=== PATIENT | male | born 1955 | race Caucasian/White ===

== ENCOUNTER 2020-06-15 16:53 | Inpatient (IN) | payer SELFPAY ==
--- OUTSIDE RECORDS SUMMARY | 2020-06-15 16:57 | XMS REPORT | Continuity of Care Document ---
:1955 Author Organization [facility] t Address [address] [place] [address] Care Team Providers Name Role Phone Unavailable Unavailable Unavailable Payers Payer Name Policy Type Policy Number Effective Date Expiration Date S ource Problems This patient has no known problems. Allergies, Adverse Reactions, Alerts Allergy Allergy Status Severity Reaction(s) Onset Inactive Treating Comm ents Source Name Type Date Date Clinician No Known DA Active U 2019-03 [facility] 0-10 [facility] 00:00: [facility] 00 are [place] Medications This patient has no known medications. Procedures This patient has no known procedures. Results Test Description Test Time Test Comments Results Result Comments Source CREATININE POC 2020-01-03 13:04:00 Test Item Value Reference Range Interpretation Comme nts CREATININE POC (test code = CREATP) 0.99 mg/dL 0.6-1.3 N COMPREHENSIVE METABOLIC [id number] 23:08:00 Test Item Value Reference Range Interpretation Comments SODIUM (test code = 138 mmol/L 136-145 N NA) POTASSIUM (test code 4.4 MMOL/L 3.6-5.2 N = K) CHLORIDE (test code 103 MMOL/L 98-110 N = CL) CARBON DIOXIDE (test 27 mEq/L 24-32 N code = CO2) GLUCOSE (test code = 152 mg/dL 70-110 H GLU) BLOOD UREA NITROGEN 19 mg/dL 7-18 H (test code = BUN) GLOMERULAR 57 >60 L The estimated FILTRATION RATE glomerular f iltration (test code = GFR) rate is co mputed usingpatient ra ce, age (>18), sex, and serum creatinine. If anyof the needed data elements are mi ssing the Laboratory cannot compute an adair mation of the glomerul ar filtration rate . CREATININE (test 1.34 mg/dL 0.60-1.30 H code = CREAT) TOTAL PROTEIN (test 6.8 g/dL 6.0-8.3 N code = PROT) ALBUMIN (test code = 4.1 g/dL 3.2-5.5 N ALB) CALCIUM (test code = 9.2 mg/dL 8.6-10.3 N CA) BILIRUBIN TOTAL 1.2 mg/dL 0.2-1.0 H [id number] enzoquinone (test code = BILT) imine (NA PQI), a metabolite ofacetaminophen (paracetamol), may generate errone ously lowresults in s amples for patients th at have taken toxic dos esof acetaminophen (paracetamol). SGOT/AST (test code 60 UNITS/L 10-42 H = AST) SGPT/ALT (test code 38 UNITS/L 10-40 N = ALT) ALKALINE PHOSPHATASE 68 UNITS/L 38-126 N (test code = ALKP) [id number] 23:08:00 Test Item Value Reference Range Interpretation Comments LIPASE (test code = LIP) 28 UNITS/L 22-151 N [id number] 23:08:00 Test Item Value Reference Range Interpretation Comments MAGNESIUM (test code = MAG) 2.0 mg/dL 1.7-2.8 N [id number] 23:08:00 Test Item Value Reference Range Interpretation Comments ALCOHOL (test code = < 5.0 mg/dl 0.0-80.0 N ALC) ~~~~~~~~~~~~~~~ ~~~~~~~ ~~~~~~~~~~~~~~~ ~~~~~~~ ~~~~~~ RESU LTS ARE TO BE USED FOR MEDICAL PURPOSES ONLY.F OR LEGAL PURPOSES THE SPECIMEN MUST B E COLLECTED BY A CHAINOF CUSTODY. LEGAL TESTING IS NOT PERFORME D BY THIS FACILITY. ~~~~~~~~~~~~~~~ ~~~~~~~ ~~~~~~~~~~~~~~~ ~~~~~~~ ~~~~~~ - XR CHEST 1 [id number] 23:01:00Patient Name: TIARA GLASGOW Unit No: [id number] EXAMS: CPT: [id number] XR CHEST 1 V [id number] PORTABLE CHEST, 01/01/2020. Comparison: None. CLINICAL: Chest pain. COMMENT: The heart, mediastinum, hilar regions and pulmonary vasculature appear within normal limits. The lungs are free of active disease. The bony thorax is intact. IMPRESSION: No evidence to suggest active cardiopulmonary disease. at 2301 Reported and signed by: Juan Hoang MD CC: Technologist: Crescencio Gonsalez Fluoro Time: DAP (Gy m2): Air Kerma (mGy): Trscr Dt/Tm: 01/01/2020 (2300) by:[email or web address] Orig Print D/T: S: 01/01/2020 (2303) BATCH NO: N/A Name: TIARA GLASGOW [facility] [place] Phys: GILMER Rosy David Jennings [address] [facility] : 1955 Age: 64 Sex: [place] Loc: T.ERS Exam Date: 01/01/2020 Status: REG ER PH: FAX: PAGE 1 Signed Report COMPREHENSIVE METABOLIC [id number] 22:58:00 Test Item Value Reference Range Interpretation Comments SODIUM (test code = NA) 138 mmol/L 136-145 N POTASSIUM (test code = K) 4.4 MMOL/L 3.6-5.2 N CHLORIDE (test code = CL) 103 MMOL/L 98-110 N CARBON DIOXIDE (test code = CO2) 27 mEq/L 24-32 N GLUCOSE (test code = GLU) 152 mg/dL 70-110 H BLOOD UREA NITROGEN (test code = mg/dL 7-18 BUN) GLOMERULAR FILTRATION RATE (test >60 code = GFR) CREATININE (test code = CREAT) mg/dL 0.60-1.30 TOTAL PROTEIN (test code = PROT) g/dL 6.0-8.3 ALBUMIN (test code = ALB) g/dL 3.2-5.5 CALCIUM (test code = CA) 9.2 mg/dL 8.6-10.3 N BILIRUBIN TOTAL (test code = BILT) mg/dL 0.2-1.0 SGOT/AST (test code = AST) UNITS/L 10-42 SGPT/ALT (test code = ALT) UNITS/L 10-40 ALKALINE PHOSPHATASE (test code = UNITS/L 38-126 ALKP) [id number] 22:58:00 Test Item Value Reference Range Interpretation Comments LIPASE (test code = LIP) UNITS/L 22-151 [id number] 22:58:00 Test Item Value Reference Range Interpretation Comments MAGNESIUM (test code = MAG) mg/dL 1.7-2.8 [id number] 22:58:00 Test Item Value Reference Range Interpretation Comments ALCOHOL (test code = ALC) mg/dl 0.0-80.0 - CT ABD PELVIS [id number] 22:58:00Patient Name: TIARA GLASGOW Unit No: [id number] EXAMS: CPT: [id number] CT ABD PELVIS W/CONT [id number] TECHNIQUE: CT scan of the abdomen and pelvis performed from the lung bases through the lesser trochanter following the administration of 100 mL Isovue 300 IV contrast. DLP: 530 mGy/cm. The study was performed with radiation dose optimization per ACR practice guidelines and pupil personnel worker's recommendations which includes: automated exposure control, adjustment of the mA and/or KV according to patient size, and/or use of iterative reconstruction technique. COMPARISON: None CLINICAL HISTORY: Abdominal pain FINDINGS: A 2.7 cm bleb is seen in the medial aspect of the left upper lobe. Elevation of theright hemidiaphragm is seen. The liver, spleen, pancreas, adrenal glands, and gallbladder appear within normal limits. Multiple scar are seen in both kidneys. The right kidney smaller than the left kidney. No kidney stone, mass, or demi hydronephrosis. Left renal pelviectasis noted. There is no free fluid or free air. No retroperitoneal mass or adenopathy identified. The aorta has a normal caliber. Large degree of fecal material seen in the colon. The small bowel appears diffusely distended measuring up to 3.4 cm in diameter containing air-fluid levels. A colostomy is seen in the left lower abdomen. The rectal stump appears thickened with mild surrounding stranding. There is mild diffuse distention of the large bowel. The urinary bladder appears within normal limits. No pelvic mass or adenopathy identified. Degenerative changes are seen in the lumbar spine. No acute or aggressive bony lesion identified. IMPRESSION: Multiple scar seen in both kidneys. The right kidney smaller than the left kidney. Left renal pelviectasis without demi hydronephrosis. Distention of the large and small bowel suggestive for diffuse ileus. A colostomy is seen in the left lower abdomen. The rectal stump appears thickened with surrounding stranding. Please correlate with patient's history of malignancy and treatment including radiation treatment. Name: TIARA GLASGOW Jos[place] Phys: David Hopkins [address] [place] [address] : 1955 Age: 64 Sex: M [place] Jos[place] Loc: T.ERS Exam Date: 01/01/2020 Status: REG ER PH: FAX: PAGE 1Signed Report (CONTINUED) Patient Name: TIARA GLASGOW Unit No:[id number] EXAMS: CPT: [id number] CTABD PELVIS W/CONT [id number] <Continued> ElectronicallySigned by Curry Jessica MD on 01/01/2020 at 2258 Reported and signed by: Curry Jessica MD CC: Technologist: Huong Galeas CTDI: 10 DLP: 530 Trscr Dt/Tm: 01/01/2020 (1649) by:CaryHNN Orig Print D/T: S: 01/01/2020 (9471) BATCH NO: N/A Name: TIARA GLASGOW Joselo Phys: David Hopkins [address] [place] [address] : 1955 Age: 64 Sex: [place] Loc: T.ERS Exam Date: 01/01/2020 Status:REG ER PH: FAX: PAGE 2 Signed ReportCOMPREHENSIVE METABOLIC [id number] 22:53:00 Test Item Value Reference Range Interpretation Comments SODIUM (test code = NA) mmol/L 136-145 POTASSIUM (test code = K) 4.4 MMOL/L 3.6-5.2 N CHLORIDE (test code = CL) MMOL/L 98-110 CARBON DIOXIDE (test code = CO2) mEq/L 24-32 GLUCOSE (test code = GLU) mg/dL 70-110 BLOOD UREA NITROGEN (test code = mg/dL 7-18 BUN) GLOMERULAR FILTRATION RATE (test >60 code = GFR) CREATININE (test code = CREAT) mg/dL 0.60-1.30 TOTAL PROTEIN (test code = PROT) g/dL 6.0-8.3 ALBUMIN (test code = ALB) g/dL 3.2-5.5 CALCIUM (test code = CA) mg/dL 8.6-10.3 BILIRUBIN TOTAL (test code = BILT) mg/dL 0.2-1.0 SGOT/AST (test code = AST) UNITS/L 10-42 SGPT/ALT (test code = ALT) UNITS/L 10-40 ALKALINE PHOSPHATASE (test code = UNITS/L 38-126 ALKP) [id number] 22:53:00 Test Item Value Reference Range Interpretation Comments LIPASE (test code = LIP) UNITS/L 22-151 [id number] 22:53:00 Test Item Value Reference Range Interpretation Comments MAGNESIUM (test code = MAG) mg/dL 1.7-2.8 [id number] 22:53:00 Test Item Value Reference Range Interpretation Comments ALCOHOL (test code = ALC) mg/dl 0.0-80.0 CBC W/AUTO [id number] 22:52:00 Test Item Value Reference Range Interpretation Comments WHITE BLOOD CELL (test code = 18.67 K/mm3 5.0-12.0 H WBC) RED BLOOD CELL (test code = RBC) 4.72 M/mm3 4.70-6.10 N HEMOGLOBIN (test code = HGB) 15.7 G/DL 14.0-18.0 N HEMATOCRIT (test code = HCT) 45.7 % 38.8-50.0 N MEAN CELL VOLUME (test code = 97 fL 80-94 H MCV) MEAN CELL HGB (test code = MCH) 33.3 PGM 27-31 H MEAN CELL HGB CONCENTRATION (test 34.4 G/DL 33-37 N code = MCHC) RED CELL DISTRIBUTION WIDTH (test 14.3 % 11.6-16.2 N code = RDW) PLATELET COUNT (test code = PLT) 253 K/mm3 130-400 N MEAN PLATELET VOLUME (test code = 9.9 fl 7.4-10.4 N MPV) NEUTROPHIL % (test code = NT%) 88.3 % 43-65 H IMMATURE GRANULOCYTE % (test code 0.9 % 0.0-2.0 N = IG%) LYMPHOCYTE % (test code = LY%) 2.5 % 20.5-45.5 L MONOCYTE % (test code = MO%) 7.6 % 5.5-11.7 N EOSINOPHIL % (test code = EO%) 0.1 % 0.9-2.9 L BASOPHIL % (test code = BA%) 0.6 % 0.2-1.0 N NUCLEATED RBC % (test code = 0.0 % 0-1.0 N NRBC%) NEUTROPHIL # (test code = NT#) 16.50 K/mm3 2.2-4.8 H LYMPHOCYTE # (test code = LY#) 0.47 K/mm3 1.3-2.9 L MONOCYTE # (test code = MO#) 1.42 K/mm3 0.3-0.8 H EOSINOPHIL # (test code = EO#) 0.01 K/MM3 0.0-0.2 N BASOPHIL # (test code = BA#) 0.11 K/mm3 0.0-0.1 H TROPONIN I [id number] 22:44:00 Test Item Value Reference Range Interpretation Comments TROPONIN I RAPID 0.00 ng/mL 0.00-0.08 N ISTAT (test code = TROPONIN I TROPIRAP) CRITERIA0.00-0. 08 ng/mL - Negative>0.08 n g/mL - Positive The us e of serial sampling and te sting protocol is are commended practice.An julee vated troponin level alone is often not suffi cient fordiagnosis of myocardial infarction. Zayra raygoza results obtaine d by different assay s may vary.Evaluation of the extent of myoca rdial damage based on increase of troponin would be valid only if similar methodology is used.
[2020-06-15 18:17] LABS: Absolute Lymphocytes (CBC) 0.5 K/uL (0.7-4.9); Basophils % 0.2 % (0-1.3); Lymphocytes % 3.6 % (15.3-44.8); RBC Red Blood Cell Count 5.32 M/uL (4.33-5.43)
[2020-06-15 18:35] LABS: Bilirubin Direct 0.3 mg/dL (0-0.2); Bilirubin Total 1.2 mg/dL (0.2-1.0); Potassium 4.2 mmol/L (3.5-5.1); Protein, Total 7.7 g/dL (6.4-8.2)
[2020-06-15] MEDS ORDERED: MORPHINE 4 MG/ML SYR ONE ×2 (18:35→20:56)
[2020-06-15] MEDS ORDERED: NA CHLORIDE 0.9% 1,000 ML ONE ×2 (18:35→20:05)
[2020-06-15] MEDS ORDERED: ONDANSETRON 4 MG/2 ML VIAL ONE ×2 (18:35→20:34)
[2020-06-15 18:52] LABS: Blood Morphology Comment NOT SEEN (NOT SEEN); Platelet Estimate ADEQ; White Blood Cell Scan OK (OK)
--- NOTE | 2020-06-15 19:10 | RAD REPORT ---
EXAM DESCRIPTION: CT - Abdomen Pelvis W Contrast - 06/15/2020 6:55 pm CLINICAL HISTORY: ABD PAIN COMPARISON: <Comparisons> TECHNIQUE: Biphasic, helical CT imaging of the abdomen and pelvis was performed following 100 ml non -ionic IV contrast. Oral contrast was given. All CT scans are performed using dose optimization technique as appropriate and may include automated exposure control or mA/KV adjustment according to patient size. FINDINGS: No suspicious findings in the lung bases. Right hemidiaphragm elevation is present. No car diomegaly or pericardial effusion. The liver, spleen, and pancreas show no suspicious findings. Gallbladder and biliary tree are also wi thout suspicious finding. Renal function is symmetric. Both kidneys show areas of cortical thinning that may be from prior infe ctious or ischemic insults. Left kidney is larger than the right. No pyelonephritis or acute renal pa renchymal process. No hydronephrosis or obstructing calculus. Mostly contracted urinary bladder shows no suspicious finding. No adrenal abnormalities. Air and fluid-filled stomach shows no wall thickening or mass. Duodenum and proximal jejunum show no suspicious findings. There is progressive dilatation of the small bowel loops in the distal abdomen u p to 3-3.5 cm in diameter. Abrupt transition point is not clearly defined but is probably in the mid to distal ileum. Terminal ileum is not dilated. There is moderate stool volume throughout the colon. Left lower quadrant colostomy site is present. No free air or pneumatosis. Surgical changes are present in the distal rectum. There is soft tissu e thickening in this region that is within normal limits for postsurgical and post therapy change. In the absence of a comparison, possibility of residual or recurrent mass cannot be excluded. No abscess identified. Disc and bony degenerative changes are present. No pathologic bone process. IMPRESSION: Small bowel obstruction pattern is present with a transition point probably in the mid t o distal ileum. No obstructing mass identified. Internal hernia or adhesion would be most likely. Moderate stool amount still present in the colon. No acute findings at the left lower quadrant colost marbella site. No abscess, free air or surgically emergent finding.
--- NOTE | 2020-06-15 19:46 | ER ---
Nurse's Notes [facility] Name: Rolando De León Age: 64 yrs Sex: Male : 1955 Arrival Date: 06/15/2020 Time: 16:56 Bed 20 Private MD: Diagnosis: Small Bowel Obstruction Presentation: 06/15 17:28 Chief complaint: Patient states: Abdominal pain and nausea since this morning. I might ca1 have a obstruction. I have a colostomy bag and today, I don't have the usual output in my bag. I am also hurting in my chest right now like am having a heart attack. Chest pain started at 1100 today. Coronavirus screen: Client denies travel out of the [place] in the last 14 days. nausea, Client presents with at least one sign or symptom that may indicate coronavirus-19. Standard/surgical mask placed on the client. Provider contacted for isolation considerations. Ebola Screen: Patient negative for fever greater than or equal to 101.5 degrees Fahrenheit, and additional compatible Ebola Virus Disease symptoms Patient denies exposure to infectious person. Patient denies travel to an Ebola-affected area in the 21 days before illness onset. No symptoms or risks identified at this time. Initial Sepsis Screen: Does the patient meet any 2 criteria? No. Patient's initial sepsis screen is negative. Does the patient have a suspected source of infection? No. Patient's initial sepsis screen is negative. Risk Assessment: Do you want to hurt yourself or someone else? Patient reports no desire to harm self or others. Onset of symptoms was June 15, 2020. 17:28 Method Of Arrival: Ambulatory ca1 17:28 Acuity: SOLANGE 2 ca1 Triage Assessment: 19:30 Respiratory: the patient has mild shortness of breath. rr5 Historical: - Allergies: 17:32 No Known Allergies; ca1 - PMHx: 17:32 Thyroid problem; ca1 - PSHx: 17:32 colostomy; eye surgery; Appendectomy; ca1 - Immunization history:: Flu vaccine is not up to date. - Social history:: Smoking status: Patient reports the use of cigarette tobacco products, smokes one-half pack cigarettes per day. Screenin:45 Abuse screen: Denies threats or abuse. Nutritional screening: No deficits noted. rb3 Tuberculosis screening: No symptoms or risk factors identified. Fall Risk None identified. Assessment: 17:45 General: Appears in no apparent distress. Behavior is calm, cooperative. General: rb3 Reports chills for Denies fever. Pain: Complains of pain in abdomen Pain began this morning. Neuro: Level of Consciousness is awake, alert, obeys commands, Oriented to person, place, time, situation. Cardiovascular: Patient's skin is warm and dry. Respiratory: Airway is patent Respiratory effort is even, unlabored, Respiratory pattern is regular, symmetrical. GI: Reports nausea, vomiting, since this morning Has a colostomy bag on the left due to colon cancer. Has had the colostomy about six years. GI: Last bowel movement was today, stool is soft. Pt reports that he had a bowel movement yesterday as well. : No signs and/or symptoms were reported regarding the genitourinary system. 18:25 Reassessment: Patient appears in no apparent distress at this time. No changes from rb3 previously documented assessment. 19:30 General: Appears in no apparent distress. uncomfortable, Behavior is calm, cooperative, rr5 appropriate for age. 19:30 Pain: Complains of pain in abdomen and left upper quadrant and right upper quadrant. rr5 Neuro: Level of Consciousness is awake, alert, obeys commands, Oriented to person, place, time. Cardiovascular: Capillary refill < 3 seconds Patient's skin is warm and dry. Rhythm is regular. Respiratory: Reports shortness of breath Airway is patent Respiratory effort is even, unlabored, Respiratory pattern is regular, symmetrical, GI: Abdomen is flat, Colostomy site is clean and dry. Ostomy appliance is intact. Reports upper abdominal pain, nausea, vomiting. : No signs and/or symptoms were reported regarding the genitourinary system. EENT: No signs and/or symptoms were reported regarding the EENT system. Derm: Skin is intact, is healthy with good turgor, Skin temperature is warm. Musculoskeletal: Capillary refill < 3 seconds. 20:30 Reassessment: Patient appears in no apparent distress at this time. Patient is alert, rr5 oriented x 3, equal unlabored respirations, skin warm/dry/pink. awaiting for results. 21:30 Reassessment: Patient appears in no apparent distress at this time. Patient and/or rr5 family updated on plan of care and expected duration. Pain level reassessed. Patient is alert, oriented x 3, equal unlabored respirations, skin warm/dry/pink. hospitalist at bedside. 22:30 Reassessment: Patient appears in no apparent distress at this time. Patient is alert, rr5 oriented x 3, equal unlabored respirations, skin warm/dry/pink. Patient states symptoms have improved. 23:30 Reassessment: Patient appears in no apparent distress at this time. Patient is alert, rr5 oriented x 3, equal unlabored respirations, skin warm/dry/pink. Patient states symptoms have improved. Vital Signs: 17:28 BP 151 / 62; Pulse 68; Resp 16 A; Temp 97.1(TE); Pulse Ox 100% on R/A; Weight 58.51 kg ca1 (R); Height 5 ft. 11 in. (180.34 cm) (R); Pain 10/10; 18:25 BP 150 / 76; Pulse 69; Resp 17; Pulse Ox 99% ; rb3 19:30 BP 156 / 80; Pulse 60; Resp 19; Temp 98; Pulse Ox 99% ; rr5 20:30 BP 162 / 79; Pulse 66; Resp 15; Pulse Ox 98% ; rr5 21:20 BP 131 / 89; Pulse 70; Resp 15; Pulse Ox 98% ; rr5 22:00 BP 143 / 95; Pulse 64; Resp 19; Temp 97.9; Pulse Ox 97% ; rr5 23:19 BP 139 / 54; Pulse 65; Resp 16; Temp 98; Pulse Ox 98% ; rr5 17:28 Body Mass Index 17.99 (58.51 kg, 180.34 cm) ca1 ED Course: 16:56 Patient arrived in ED. ds1 17:31 Triage completed. ca1 17:32 Arm band placed on right wrist. ca1 17:45 Patient has correct armband on for positive identification. Bed in low position. Call rb3 light in reach. Side rails up X 1. Pulse ox on. NIBP on. Warm blanket given. 17:46 Sarah Hernandez, RN is Primary Nurse. rb3 17:52 [facility]eda Hughes [facility]C [facility] kb 17:52 Sergio Huang MD is Attending Physician. kb 18:55 CT Abd/Pelvis - IV Contrast Only In Process Unspecified. EDMS 19:20 Inserted saline lock: 20 gauge in right antecubital area, using aseptic technique. rr5 ,using aseptic technique. inserted by AM shift. 19:45 Sandoval Leon is Hospitalizing Provider. kb 20:35 NGT: inserted 16 Fr. via right nare. verified placement of air over stomach, verified rr5 return of gastric contents, to intermittent suction. Returned gastric contents. Patient tolerated well. 23:40 No provider procedures requiring assistance completed. Patient admitted, IV remains in rr5 place. intact, No redness/swelling at site. Administered Medications: 18:23 Drug: NS 0.9% 1000 ml Route: IV; Rate: 1000 ml; Site: right antecubital; rb3 19:40 Follow up: Response: No adverse reaction; IV Status: Completed infusion; IV Intake: rr5 1000ml 18:23 Drug: Zofran (Ondansetron) 4 mg Route: IVP; Site: right antecubital; rb3 19:20 Follow up: Response: No adverse reaction rr5 18:23 Drug: morphine 4 mg Route: IVP; Site: right antecubital; rb3 19:20 Follow up: Response: No adverse reaction; Pain is decreased; RASS: Alert and Calm (0) rr5 20:04 Drug: Mefoxin (cefOXitin) 2 grams Route: IVPB; Infused Over: 30 mins; Site: right bb antecubital; 20:53 Follow up: Response: No adverse reaction; IV Status: Completed infusion; IV Intake: rr5 100ml 20:04 Drug: Flagyl 500 mg Volume: 100 ml; Route: IVPB; Rate: 200 ml/hr; Infused Over: 30 bb mins; Site: right antecubital; 20:35 Follow up: Response: No adverse reaction; IV Status: Completed infusion; IV Intake: rr5 100ml 20:04 Drug: NS 0.9% 1000 ml Route: IV; Rate: 125 ml/hr; Site: right antecubital; bb 23:30 Follow up: Response: No adverse reaction; IV Status: Infusion continued upon admission; rr5 IV Intake: 375ml 20:30 Drug: Zofran (Ondansetron) 4 mg Route: IVP; Site: right antecubital; rr5 21:30 Follow up: Response: No adverse reaction rr5 20:46 Drug: morphine 4 mg {Note: rass 0.} Route: IVP; Site: right antecubital; rr5 21:40 Follow up: Response: No adverse reaction; Pain is decreased; RASS: Alert and Calm (0) rr5 Intake: 19:40 IV: 1000ml; Total: 1000ml. rr5 20:35 IV: 100ml; Total: 1100ml. rr5 20:53 IV: 100ml; Total: 1200ml. rr5 23:30 IV: 375ml; Total: 1575ml. rr5 Output: 23:30 Urine: 250ml (Voided); Gastric: 300ml (NGT); Total: 550ml. rr5 Outcome: 19:46 Decision to Hospitalize by Provider. kb 23:35 Admitted to Tele accompanied by tech, via stretcher, room 428, with chart, Report rr5 called to julio 23:35 Condition: stable 23:35 Instructed on the need for admit. 23:40 Patient left the ED. rr5 Signatures: Dispatcher [employer] EDRasheeda Hawthorne, WU SALAZAR-Jyotsna Vázquez ds1 Nano Colin, RN RN bb [place], RN RN rr5 Kayla Lind RN RN ca1 Sarah Hernandez, RN RN rb3 Corrections: (The following items were deleted from the chart) 17:33 17:28 BP 151 / 62; Pulse 68bpm; Resp 16bpm; Assisted; Pulse Ox 100% RA; Temp 97.1F ca1 Temporal; 58.51 kg Reported; Height 5 ft. 11 in. Reported; BMI: 17.9; Pain 9/10; ca1 17:33 17:28 Acuity: SOLANGE 3 ca1 ca1
--- NOTE | 2020-06-15 19:47 | EDPHYS ---
Physician Documentation [facility] Name: Rolando De León Age: 64 yrs Sex: Male : 1955 Arrival Date: 06/15/2020 Time: 16:56 Bed 20 Private MD: ED Physician Sergio Huang HPI: 06/15 18:22 This 64 yrs old Male presents to ER via Ambulatory with complaints of kb Shortness Of Breath, Chills, Pain All Over. 18:22 Severity of symptoms: At their worst the symptoms were moderate in the emergency kb department the symptoms are unchanged. The patient has not experienced similar symptoms in the past. The patient has not recently seen a physician. 18:22 The patient presents with abdominal pain. Onset: The symptoms/episode began/occurred kb this morning. The symptoms do not radiate. Associated signs and symptoms: Pertinent positives: nausea and vomiting. The symptoms are described as constant. Modifying factors: The symptoms are alleviated by nothing, the symptoms are aggravated by nothing. Severity of pain: At its worst the pain was moderate in the emergency department the pain is unchanged. Pt reports abd pain that started after eating cereal this morning. States it feels like a bowel obstruction. Historical: - Allergies: 17:32 No Known Allergies; ca1 - PMHx: 17:32 Thyroid problem; ca1 - PSHx: 17:32 colostomy; eye surgery; Appendectomy; ca1 - Immunization history:: Flu vaccine is not up to date. - Social history:: Smoking status: Patient reports the use of cigarette tobacco products, smokes one-half pack cigarettes per day. ROS: 18:05 Constitutional: Negative for fever, chills, and weight loss, Cardiovascular: Negative kb for chest pain, palpitations, and edema, Respiratory: Negative for shortness of breath, cough, wheezing, and pleuritic chest pain, Back: Negative for injury and pain, MS/Extremity: Negative for injury and deformity, Skin: Negative for injury, rash, and discoloration, Neuro: Negative for headache, weakness, numbness, tingling, and seizure. 18:05 Abdomen/GI: Positive for abdominal pain, nausea and vomiting. Exam: 18:21 Constitutional: This is a well developed, well nourished patient who is awake, alert, kb and in no acute distress. Head/Face: Normocephalic, atraumatic. Cardiovascular: Regular rate and rhythm with a normal S1 and S2. No gallops, murmurs, or rubs. No pulse deficits. Respiratory: Respirations even and unlabored. No increased work of breathing, no retractions or nasal flaring. Skin: Warm, dry with normal turgor. Normal color. MS/ Extremity: Pulses equal, no cyanosis. Neurovascular intact. Full, normal range of motion. Neuro: Awake and alert, GCS 15, oriented to person, place, time, and situation. Moves all extremities. Normal gait. 18:21 Abdomen/GI: Inspection: colonostomy LUQ, Bowel sounds: diminished, Palpation: soft, in all quadrants, mild abdominal tenderness, in the right upper quadrant and left upper quadrant. 18:21 ECG was reviewed by the Attending Physician. kb Vital Signs: 17:28 BP 151 / 62; Pulse 68; Resp 16 A; Temp 97.1(TE); Pulse Ox 100% on R/A; Weight 58.51 kg ca1 (R); Height 5 ft. 11 in. (180.34 cm) (R); Pain 10/10; 18:25 BP 150 / 76; Pulse 69; Resp 17; Pulse Ox 99% ; rb3 19:30 BP 156 / 80; Pulse 60; Resp 19; Temp 98; Pulse Ox 99% ; rr5 20:30 BP 162 / 79; Pulse 66; Resp 15; Pulse Ox 98% ; rr5 21:20 BP 131 / 89; Pulse 70; Resp 15; Pulse Ox 98% ; rr5 22:00 BP 143 / 95; Pulse 64; Resp 19; Temp 97.9; Pulse Ox 97% ; rr5 23:19 BP 139 / 54; Pulse 65; Resp 16; Temp 98; Pulse Ox 98% ; rr5 17:28 Body Mass Index 17.99 (58.51 kg, 180.34 cm) ca1 MDM: 17:52 Patient medically screened. kb 18:19 Data reviewed: vital signs, nurses notes. Data interpreted: Pulse oximetry: on room air kb is 100 %. Interpretation: normal. 19:43 Counseling: I had a detailed discussion with the patient and/or guardian regarding: the kb historical points, exam findings, and any diagnostic results supporting the discharge/admit diagnosis, lab results, radiology results, the need for further work-up and treatment in the hospital. Physician consultation: See Zuleta MD was contacted at 19:44, regarding consult, patient's condition, and will see patient in inpatient room, tomorrow. 19:44 Physician consultation: Bairon REYNOLDS was contacted at 19:44, regarding admission, to the medical/surgical unit. patient's condition, and will see patient in ED. 06/15 17:57 Order name: Basic Metabolic Panel; Complete Time: 18:40 kb 06/15 17:57 Order name: CBC with Diff; Complete Time: 18:59 kb 06/15 17:57 Order name: Hepatic Function; Complete Time: 18:40 kb 06/15 17:57 Order name: Lipase; Complete Time: 18:40 kb 06/15 18:52 Order name: CBC Smear Scan; Complete Time: 18:59 EDMS 06/15 19:43 Order name: COVID-19 : Document "Date of Symptom Onset" if Symptomatic. kb 06/15 17:57 Order name: CT Abd/Pelvis - IV Contrast Only; Complete Time: 19:20 kb 06/15 19:46 Order name: Carcinoembryonic Antigen EDGA 06/15 20:56 Order name: Abdomen 1 View XRAY rr5 06/15 22:10 Order name: SARS-COV-2 RT PCR EDGA 06/15 17:33 Order name: EKG; Complete Time: 17:33 ca1 06/15 17:33 Order name: EKG - Nurse/Tech; Complete Time: 17:37 ca1 06/15 17:57 Order name: IV Saline Lock; Complete Time: 18:24 kb 06/15 17:57 Order name: Labs collected and sent; Complete Time: 18:24 kb 06/15 19:43 Order name: NG Tube; Complete Time: 20:54 kb 06/15 20:18 Order name: CONS Physician Consult EDMS EC:21 Rate is 72 beats/min. Rhythm is regular. QRS [place] is Normal. [place] interval is normal at kb 100 msec. QRS interval is normal at 126 msec. QT interval is normal at 466 msec. Administered Medications: 18:23 Drug: NS 0.9% 1000 ml Route: IV; Rate: 1000 ml; Site: right antecubital; rb3 19:40 Follow up: Response: No adverse reaction; IV Status: Completed infusion; IV Intake: rr5 1000ml 18:23 Drug: Zofran (Ondansetron) 4 mg Route: IVP; Site: right antecubital; rb3 19:20 Follow up: Response: No adverse reaction rr5 18:23 Drug: morphine 4 mg Route: IVP; Site: right antecubital; rb3 19:20 Follow up: Response: No adverse reaction; Pain is decreased; RASS: Alert and Calm (0) rr5 20:04 Drug: Mefoxin (cefOXitin) 2 grams Route: IVPB; Infused Over: 30 mins; Site: right bb antecubital; 20:53 Follow up: Response: No adverse reaction; IV Status: Completed infusion; IV Intake: rr5 100ml 20:04 Drug: Flagyl 500 mg Volume: 100 ml; Route: IVPB; Rate: 200 ml/hr; Infused Over: 30 bb mins; Site: right antecubital; 20:35 Follow up: Response: No adverse reaction; IV Status: Completed infusion; IV Intake: rr5 100ml 20:04 Drug: NS 0.9% 1000 ml Route: IV; Rate: 125 ml/hr; Site: right antecubital; bb 23:30 Follow up: Response: No adverse reaction; IV Status: Infusion continued upon admission; rr5 IV Intake: 375ml 20:30 Drug: Zofran (Ondansetron) 4 mg Route: IVP; Site: right antecubital; rr5 21:30 Follow up: Response: No adverse reaction rr5 20:46 Drug: morphine 4 mg {Note: rass 0.} Route: IVP; Site: right antecubital; rr5 21:40 Follow up: Response: No adverse reaction; Pain is decreased; RASS: Alert and Calm (0) rr5 Disposition: 06/16 07:28 Co-signature as Attending Physician, Sergio Huang MD I agree with the assessment and kdr plan of care. Disposition: 06/15/20 19:46 Hospitalization ordered by Sandoval Leon for Inpatient Admission. Preliminary diagnosis is Small Bowel Obstruction. - Bed requested for Telemetry/MedSurg (Inpatient). - Status is Inpatient Admission. rr5 - Condition is Stable. - Problem is new. - Symptoms are unchanged. Signatures: Dispatcher [employer] EDGA Rasheeda Hughes, MARTIN-C MARTIN-Sergio Hall MD MD kdr Ballard, Brenda, RN RN bb [place], RN RN rr5 Kayla Lind RN RN ca1 Sarah Hernandez, RN RN rb3 Corrections: (The following items were deleted from the chart) 06/15 19:44 19:43 Physician consultation: See Zuleta MD was contacted at 19:44, regarding kb admission, to the medical/surgical unit. patient's condition, and will see patient in inpatient room, tomorrow, kb 22:55 19:46 Hospitalization Ordered by Sandoval Leon for Inpatient Admission. Preliminary ca1 diagnosis is Small Bowel Obstruction. Bed requested for Telemetry/MedSurg (Inpatient). Status is Inpatient Admission. Condition is Stable. Problem is new. Symptoms are unchanged. kb 23:40 22:55 06/15/2020 19:46 Hospitalization Ordered by Sandoval Leon for Inpatient rr5 Admission. Preliminary diagnosis is Small Bowel Obstruction. Bed requested for Telemetry/MedSurg (Inpatient). Status is Inpatient Admission. Condition is Stable. Problem is new. Symptoms are unchanged. ca1
[2020-06-15] MEDS ORDERED: CEFOXITIN SODIUM 1 GM/VIAL ONE (20:04)
[2020-06-15] MEDS ORDERED: METRONIDAZOLE 500mg IVPB 500 MG/100 ML BAG IV ONE (20:05)
[2020-06-15] MEDS ORDERED: NA CHLORIDE 0.9% 100 ML ONE (20:05)
--- NOTE | 2020-06-15 22:59 | P.HP ---
Certification for Inpatient Patient admitted to: Inpatient With expected LOS: >2 Midnights Patient will require the following post-hospital care: None Practitioner: I am a practitioner with admitting privileges, knowledge of patient current condition, hospital course, and medical plan of care. Services: Services provided to patient in accordance with Admission requirements found in Title 42 Section 412.3 of the Code of Federal Regulations <DomingoBairon Andre - Last Filed: 06/15/20 22:54> Patient History Date of Service: 06/15/20 Primary Care Provider: Dr. Spivey Reason for admission: SBO History of Present Illness: Mr. De León is a 64 yo M with a history of thyroid disease and colon cancer now with colostomy bag here today for 9/10 cramping umbilical abdominal pain beginning this morning. He tried to eat breakfast and the pain worsened. In the past the pain has improved when he massages the area with his fingers but not today. He had an SBO in the January 2020 relieved with NG tube suction. He reports night sweats, chills, nausea, and vomiting. WBC 13.6. Tbili 1.2. Dbili 0.3. CEA 0.9. CT scan show small bowel obstruction pattern present with a transition point in mid to distal ileum, no obstructing mass identified, internal hernia or adhesion most likely and no acute findings at the LLQ colostomy site. No abscess, free air or surgically emergent finding. Home medications list reviewed: No - Past Medical/Surgical History Diabetic: No -: thyroid disease -: colon cancer -: colectomy - Family History Father -: Heart disease Sister -: Heart disease Brother -: Heart disease, Hypertension - Social History Smoking Status: Current every day smoker Counseled patient to stop smoking for: less than 10 minutes Smoking therapy provided: Yes Alcohol use: No CD- Drugs: No Caffeine use: Yes Place of Residence: Home <Bairon Lane - Last Filed: 06/15/20 22:54> Date of Service: 06/16/20 <latoya canseco - Last Filed: 06/16/20 14:47> Review of Systems General: Fever, Chills, Sweats, As per HPI Eyes: Unremarkable ENT: Unremarkable Respiratory: Unremarkable Cardiovascular: Unremarkable Gastrointestinal: Nausea, Vomiting, Abdominal Pain, As per HPI Genitourinary: Unremarkable Musculoskeletal: Unremarkable Integumentary: Unremarkable Neurological: Unremarkable Lymphatics: Unremarkable <Bairon Lane - Last Filed: 06/15/20 22:54> Physical Examination - Vital Signs Temperature: 97.1 F Blood Pressure: 151/62 Pulse: 68 Respirations: 16 Pulse Ox (%): 100 - Physical Exam General: Alert, Oriented x3, Cooperative HEENT: Atraumatic, Normocephalic, PERRLA, Mucous membr. moist/pink, EOMI, Sclerae nonicteric Neck: Supple, 2+ carotid pulse no bruit, JVD not distended, No Thyromegaly, No LAD Respiratory: Clear to auscultation bilaterally Cardiovascular: No edema, Normal pulses, Regular rate/rhythm, No gallops, No rubs, No murmurs Capillary refill: <2 Seconds Gastrointestinal: Soft and benign, Non-distended, No ascites, No masses, No rebound, No guarding, Tenderness Musculoskeletal: No clubbing, No swelling, No contractures, No erythema, No tenderness, No warmth Integumentary: No rashes, No breakdown, No significant lesion, No tenderness/swelling, No erythema, No warmth, No cyanosis Neurological: Normal speech, Normal strength at 5/5 x4 extr, Normal tone, Sensation intact, Cranial nerves 3-12 intact, Normal affect Lymphatics: No axilla or inguinal lymphadenopathy - Studies Laboratory Data (last 24 hrs) 06/15/20 18:10: WBC 13.60 H, Hgb 16.2, Hct 49.0, Plt Count 212 06/15/20 18:10: Sodium 141, Potassium 4.2, BUN 17, Creatinine 1.03, Glucose 163 H, Total Bilirubin 1.2 H, AST 15, ALT 25, Alkaline Phosphatase 81, Lipase 52 L <Bairon Lane - Last Filed: 06/15/20 22:54> - Studies Laboratory Data (last 24 hrs) 06/15/20 18:10: WBC 13.60 H, Hgb 16.2, Hct 49.0, Plt Count 212 06/15/20 18:10: Sodium 141, Potassium 4.2, BUN 17, Creatinine 1.03, Glucose 163 H, Total Bilirubin 1.2 H, AST 15, ALT 25, Alkaline Phosphatase 81, Lipase 52 L <latoya canseco - Last Filed: 06/16/20 14:47> Assessment and Plan - Problems (Diagnosis) (1) Small bowel obstruction Current Visit: Yes Status: Acute Plan: Merlyn consulted. Mefoxin and flagyl for abx prophylaxis continue IV fluids NG tube flat upright AXR in the AM morphine for pain, zofran for nausea (2) Thyroid disease Current Visit: Yes Status: Chronic Plan: patient takes methimazole, but hasn't taken for months due to cost. TSH/T4 pending. (3) History of colon cancer Current Visit: Yes Status: Chronic Plan: CEA 0.9. Stable, continue to monitor. Discharge Plan: Home Plan to discharge in: 48 Hours - Advance Directives Does patient have a Living Will: No Does patient have a Durable POA for Healthcare: No - Code Status/Comfort Care Code Status Assessed: Yes (full code) Critical Care: No Time Spent Managing Pts Care (In Minutes): [address] <[address] - Last Filed: 06/15/20 22:54> Physician Review: Patient Assessed, Agree with Above Assessment and Plan Physician Review Additional Text: Small-bowel obstruction. Hyperthyroid state. Leukocytosis Plan: Medical management for now. Empiric IV antibiotics NG-tube to suction General surgery consult. Resume thyroid medications. <latoya canseco - Last Filed: 06/16/20 14:47>
[2020-06-16 00:27] VITALS: BMI 17.3
[2020-06-16] MEDS ORDERED: NA CHLORIDE 0.9% 1,000 ML IV SCH (00:45)
[2020-06-16] MEDS ORDERED: ONDANSETRON 4 MG/2 ML VIAL IV PRN (00:45)
[2020-06-16] MEDS ORDERED: CEFOXITIN/SWI 1gm 1 GM/10 ML SYR IV ONE ×2 (01:15→01:30)
[2020-06-16 01:45] LABS: Thyroid Stimulating Hormone < 0.005 uIU/mL (0.360-3.740)
[2020-06-16] MEDS ORDERED: CEFEPIME/SWI 1gm 0 ML ONE (01:51)
[2020-06-16] MEDS ORDERED: CEFOXITIN SODIUM 1 GM/VIAL ONE (02:15)
[2020-06-16] MEDS ORDERED: CEFOXITIN/SWI 1gm 1 GM/10 ML SYR ONE (02:15)
[2020-06-16] MEDS: MORPHINE 4 MG/ML SYR IV PRN (03:08)
[2020-06-16] MEDS ORDERED: CEFOXITIN 2 GM in NA CHLORIDE 0.9% 100 ML IVPB SCH (04:00)
[2020-06-16] MEDS: METRONIDAZOLE 500mg IVPB 500 MG/100 ML BAG IV SCH ×3 (04:14→17:00)
[2020-06-16 04:17] LABS: Absolute Lymphocytes (CBC) 0.2 K/uL (0.7-4.9); Basophils % 0.3 % (0-1.3); Hematocrit 48.2 % (39.6-49.0); Lymphocytes % 0.8 % (15.3-44.8); MPV 8.3 fL (7.6-11.3); RBC Red Blood Cell Count 5.24 M/uL (4.33-5.43)
[2020-06-16 04:54] LABS: Albumin 3.4 g/dL (3.4-5.0); Bilirubin Total 0.9 mg/dL (0.2-1.0); Magnesium 1.8 mg/dL (1.8-2.4); Protein, Total 6.8 g/dL (6.4-8.2)
[2020-06-16 04:57] LABS: Potassium 5.8 mmol/L (3.5-5.1)
[2020-06-16 07:19] LABS: Urine Appearance CLEAR; Urine Bilirubin NEGATIVE (NEG); Urine Blood NEGATIVE (Negative); Urine Color YELLOW; Urine Glucose NEGATIVE (Negative); Urine Protein NEGATIVE (NEG); Urine Specific Gravity >=1.030 (1.005-1.030); Urine Urobilinogen 0.2 mg/dL (0.2-1.0); Urine pH 5.5 (5.0-7.0)
[2020-06-16 07:19] LABS: Albumin 3.1 g/dL (3.4-5.0); Bilirubin Total 0.8 mg/dL (0.2-1.0); Potassium 4.6 mmol/L (3.5-5.1); Protein, Total 6.3 g/dL (6.4-8.2)
[2020-06-16 07:28] LABS: Urine Microscopic Reflex NO UMIC
[2020-06-16] MEDS: NA CHLORIDE 0.9% 1,000 ML IV SCH ×2 (07:44→15:44)
--- NOTE | 2020-06-16 08:25 | RAD REPORT ---
EXAM DESCRIPTION: RAD - Abdomen W Erect - 06/16/2020 6:18 am CLINICAL HISTORY: SBO Pain COMPARISON: Abdomen Pelvis W Contrast dated 06/15/2020 FINDINGS: Numerous stacked distended loops of small bowel are seen showing mild worsening since prio r CT. Enteric tube tip is in the stomach. There is no evidence of pneumoperitoneum. The right hemidia phragm is elevated. IMPRESSION: Mild worsening in the small bowel obstruction since the comparative study.
[2020-06-16 08:42] LABS: Absolute Lymphocytes (CBC) 0.3 K/uL (0.7-4.9); Basophils % 0.2 % (0-1.3); Hematocrit 45.1 % (39.6-49.0); Lymphocytes % 1.7 % (15.3-44.8); MPV 8.3 fL (7.6-11.3); RBC Red Blood Cell Count 4.94 M/uL (4.33-5.43)
[2020-06-16] MEDS: CEFOXITIN/SWI 2gm 2 GM/20 ML SYR IV SCH ×2 (09:00→17:00)
[2020-06-16] MEDS ORDERED: MAGNESIUM SULFATE 1 gm IVPB 1 GM/100 ML BAG IV ONE (09:00)
[2020-06-16 09:41] LABS: Blood Morphology Comment NOT SEEN (NOT SEEN); Platelet Estimate ADEQ
--- NOTE | 2020-06-16 09:47 | CON ---
Date of Consultation: 06/15/2020 Reason For Consultation: Small-bowel obstruction. History Of Present Illness: The patient is a 64-year-old gentleman, comes in with a history of thyro id disease and rectal cancer with crampy abdominal pain. It started yesterday morning after breakfas t and worsen. He has had nausea and vomiting. After the NG tube was placed, feel little bit better. Last night he passed gas, colostomy bag yesterday, does have small amount of stool in it currently. No sore throat, runny nose, cough, headaches, or dizziness. No chest pain. No fever or chills. P lease note, the patient had about 6 episodes of recurrent small bowel obstruction in the last 6 years since his colostomy. Colostomy cannot be reversed due to his rectal cancer and I understand he prob ably had an APR done. Review of Systems: Otherwise unremarkable. Past Medical History: Thyroid disease, colon cancer. Past Surgical History: Probably an abdominoperineal resection with an ileostomy, which was reversed. Allergies: NO ALLERGIES. Social History: The patient does smoke and has been counseled. Denies alcohol use. Family History: Significant for heart disease and hypertension. Physical Examination: Vital Signs: His vital signs currently are stable. He is afebrile. General: He is awake, alert, and oriented x3. Head and Neck: Cranial nerves 2 through 12 are grossly within normal limits. No neck masses. No JV D. Throat clear. Neck is supple. Chest: Clear. Heart: S1 and S2. Abdomen: Soft. Hypoactive bowel sounds. Nondistended. There is a very minimal tenderness. No yusuf ound, rigidity, or guarding. No abdominal wall hernia that I can appreciate. Colostomy has a small amount of solid stool present, but I do not see any air. Laboratory Data: Shows white count on admission 13.6, this morning however is 21,000 still with a le ft shift. His chemistry was repeated this morning because of potassium is high and there was concern for hemolysis and his potassium now is 4.6. His BUN and creatinine are slightly elevated earlier th is morning, but has improved. His CEA is 0.9. CT of the abdomen and pelvis reviewed. He has small bowel obstruction. No discrete point of transition, but appears to be in the right lower quadrant, i n the mid ileum region. There is no evidence of recurrence hernia, there is no free air, there is no abscess, and there is no discrete hernia that appreciated. Most likely source of obstruction is int ernal hernia or adhesions, but there is no abscess, free air, or surgically emergent finding. Assessment: Small bowel obstruction. Recommendations: Continue n.p.o., NG tube, IV fluids, IV antibiotics, serial abdominal exams. We wi ll check an abdominal x-ray today and make further recommendation. At this time, there is no need fo r acute surgical intervention, but should the patient's clinical course worsens or not improve, he ma y need an intervention. Plan of care discussed with the patient in detail. JOELLEN/LUÍS Voice ID: [id number] Report ID: [id number]
[2020-06-16] MEDS ORDERED: PNEUMOCOCCAL VACCINE 0.5 ML IMVAC ONE (13:00)
[2020-06-16] MEDS ORDERED: INFLUENZA VACCINE (for 3y+) 0.5 ML DOSE IMVAC ONE (13:00)
--- NOTE | 2020-06-16 14:53 | P.PN ---
Subjective Date of Service: 06/16/20 Primary Care Provider: Dr. Spivey Chief Complaint: SBO Patient denies any abdominal pain. He reports passing small amounts of gas and has BM in his colostomy bag. Abdominal x-rays today suggest worsening small-bowel obstruction. Physical Examination - Vital Signs Temperature: 98.3 F Blood Pressure: 136/63 Pulse: 72 Respirations: 19 Pulse Ox (%): 95 - Physical Exam General: Alert, In no apparent distress, Oriented x3 HEENT: Other (NG-tube to suction) Neck: Supple, JVD not distended Respiratory: Clear to auscultation bilaterally, Normal air movement Cardiovascular: No edema, Regular rate/rhythm, Normal S1 S2 Gastrointestinal: Soft and benign, Non-distended, No tenderness Musculoskeletal: No swelling, No tenderness Integumentary: No rashes Neurological: Normal strength at 5/5 x4 extr, Cranial nerves 3-12 intact - Studies Laboratory Data (last 24 hrs) 06/15/20 18:10: WBC 13.60 H, Hgb 16.2, Hct 49.0, Plt Count 212 06/15/20 18:10: Sodium 141, Potassium 4.2, BUN 17, Creatinine 1.03, Glucose 163 H, Total Bilirubin 1.2 H, AST 15, ALT 25, Alkaline Phosphatase 81, Lipase 52 L Assessment And Plan - Current Problems (Diagnosis) (1) Hyperthyroidism Current Visit: Yes Status: Acute (2) Small bowel obstruction Current Visit: Yes Status: Acute (3) History of colon cancer Current Visit: Yes Status: Chronic (4) Thyroid disease Current Visit: Yes Status: Chronic (5) Leukocytosis Current Visit: Yes Status: Acute - Plan Case discussed with Dr. Zuleta. Continue medical management with NG tube to suction, IV antibiotics, IV hydration. Repeat abdominal x-ray in a.m followed by a small-bowel series if SBO persist. Hyperkalemia likely secondary to blood sample hemolysis. Hyperkalemia resolved. Resume methimazole for hyperthyroid state. Monitor CBC to follow leukocytosis. Monitor renal function.
--- NOTE | 2020-06-16 15:03 | EKG ---
Test Date: 2020-06-15 Test Time: 17:36:26 Cnc Grinder: MASTER MEASUREMENT RESULTS: Intervals: Rate: 72 MD: 100 QRSD: 126 QT: 466 QTc: 510 [place]: P: 87 MD: 100 QRS: 94 T: 76 INTERPRETIVE STATEMENTS: Sinus rhythm with short MD with occasional premature ventricular complexes Right bundle branch block Abnormal ECG No previous ECG available for comparison Electronically Signed On 06-16-20 15:01:51 CDT by Enrique Aguilar
[2020-06-16] MEDS: NICOTINE 14 MG/PAT TD SCH (17:00)
[2020-06-16] MEDS: ENSURE ENLIVE 237 ML CAN PO SCH (20:23)
[2020-06-16] MEDS: CEPACOL LOZENGES PO PRN (20:42)
--- NOTE | 2020-06-16 21:09 | RAD REPORT ---
EXAM DESCRIPTION: Chest Single View RadLex: XR CHEST 1 VIEW CLINICAL HISTORY: NGT verification. COMPARISON: None. TECHNIQUE: Single view AP chest radiograph(s). FINDINGS: Enteric tube terminates in the stomach. Moderate perihilar interstitial thickening. No inf iltrate. No pleural effusion. No pneumothorax. Nonenlarged cardiomediastinal silhouette. No significa nt osseous abnormality. IMPRESSION: 1. Enteric tube terminates in the stomach. 2. Moderate perihilar interstitial thickening. No infiltrate Electronically signed by: Kim Sarmiento MD 06/15/2020 9:51 PM CDT Due to temporary technical issues with the PACS/Fluency reporting system, reports are being signed by the in house radiologists without review as a courtesy to insure prompt reporting. The interpreting radiologist is fully responsible for the content of the report.
[2020-06-17] MEDS: METRONIDAZOLE 500mg IVPB 500 MG/100 ML BAG IV SCH ×3 (00:52→17:28)
[2020-06-17] MEDS: NA CHLORIDE 0.9% 1,000 ML IV SCH ×4 (00:52→21:39)
[2020-06-17] MEDS: CEPACOL LOZENGES PO PRN ×4 (00:58→22:08)
[2020-06-17] MEDS: CEFOXITIN/SWI 2gm 2 GM/20 ML SYR IV SCH ×3 (00:59→17:29)
[2020-06-17 06:52] LABS: Absolute Lymphocytes (CBC) 0.9 K/uL (0.7-4.9); Basophils % 0.5 % (0-1.3); Hematocrit 41.9 % (39.6-49.0); Lymphocytes % 7.8 % (15.3-44.8); MPV 8.5 fL (7.6-11.3); RBC Red Blood Cell Count 4.53 M/uL (4.33-5.43)
[2020-06-17 06:59] LABS: Magnesium 2.1 mg/dL (1.8-2.4); Phosphorus 1.9 mg/dL (2.5-4.9)
[2020-06-17] MEDS: NICOTINE 14 MG/PAT TD SCH (07:54)
[2020-06-17] MEDS: ENSURE ENLIVE 237 ML CAN PO SCH ×2 (07:54→20:09)
[2020-06-17] MEDS: MORPHINE 4 MG/ML SYR IV PRN (09:03)
--- NOTE | 2020-06-17 09:49 | RAD REPORT ---
EXAM DESCRIPTION: RAD - Abdomen W Erect - 06/17/2020 6:30 am CLINICAL HISTORY: Abdominal pain FINDINGS: The small bowel caliber has diminished. Air is present within the colon. The small bowel o bstruction has shown improvement. No free air seen beneath the diaphragm Nasogastric tube has its tip in the mid esophagus. Exam was discussed with Dr. Zuleta
--- NOTE | 2020-06-17 12:19 | P.PN ---
Subjective Date of Service: 06/17/20 Primary Care Provider: Dr. Spivey Chief Complaint: SBO Nurse report patient had a large bowel movement yesterday. Patient denies any symptoms this morning. Abdominal x-rays today show significant improvement in small bowel is dilatation. Physical Examination - Vital Signs Temperature: 97.9 F Blood Pressure: 133/65 Pulse: 68 Respirations: 14 Pulse Ox (%): 94 - Physical Exam General: Alert, In no apparent distress HEENT: Mucous membr. moist/pink, Other (NG-tube) Neck: JVD not distended Respiratory: Clear to auscultation bilaterally, Normal air movement Cardiovascular: No edema, Regular rate/rhythm, Normal S1 S2 Gastrointestinal: Normal bowel sounds, Soft and benign, Non-distended, No tenderness, Other (Colostomy bag) Musculoskeletal: No swelling, No erythema Integumentary: No rashes Neurological: Normal strength at 5/5 x4 extr Assessment And Plan - Current Problems (Diagnosis) (1) Hyperthyroidism Current Visit: Yes Status: Acute (2) Small bowel obstruction Current Visit: Yes Status: Acute (3) History of colon cancer Current Visit: Yes Status: Chronic (4) Thyroid disease Current Visit: Yes Status: Chronic (5) Leukocytosis Current Visit: Yes Status: Acute - Plan Remove NG tube and start clear liquid diet today per Dr. Zuleta. Continue IV antibiotics, IV hydration. May need small-bowel series tomorrow. He may need referral to GI for colonoscopy as an outpatient . Hyperkalemia likely secondary to blood sample hemolysis. Hyperkalemia resolved. Continue methimazole for hyperthyroid state. Leukocytosis almost resolved. Likely stress related. Renal function is stable. Physician Review: Patient Assessed, Agree with Above Assessment and Plan
--- NOTE | 2020-06-17 12:23 | PN ---
Date of Progress Note: 06/17/2020 Subjective: The patient with no complaints. He is having air in stool through his colostomy bag. A bdominal x-ray shows improvement of the small bowel obstruction. White count is almost normalized to 11,000. Objective: Vital signs: Stable, afebrile. Abdomen: Benign. Assessment: Small-bowel obstruction, improving. Recommendation: Discontinue NG tube. Begin sips of clear liquids. Continue IV fluids and IV antibi otics. Check electrolytes and correct them accordingly. Long-term plan would be to get a colonoscop y as an outpatient followed by possible exploratory laparotomy for recurrent small bowel obstruction. Plan of care discussed in detail with the patient and Dr. Leon. /MODL Voice ID: [id number] Report ID: [id number]
[2020-06-17 19:59] VITALS: O2SAT 97
[2020-06-18] MEDS: METRONIDAZOLE 500mg IVPB 500 MG/100 ML BAG IV SCH ×2 (00:38→09:09)
[2020-06-18] MEDS: CEFOXITIN/SWI 2gm 2 GM/20 ML SYR IV SCH ×2 (00:38→09:39)
[2020-06-18 04:59] LABS: Basophils % 0.5 % (0-1.3); Hematocrit 40.9 % (39.6-49.0); Lymphocytes % 12.6 % (15.3-44.8); MPV 8.5 fL (7.6-11.3); RBC Red Blood Cell Count 4.47 M/uL (4.33-5.43)
[2020-06-18 05:15] LABS: Potassium 3.8 mmol/L (3.5-5.1)
[2020-06-18] MEDS: NA CHLORIDE 0.9% 1,000 ML IV SCH (06:52)
[2020-06-18] MEDS: NICOTINE 14 MG/PAT TD SCH (09:00)
[2020-06-18] MEDS ORDERED: POTASSIUM 25 MEQ EFFERV TAB PO ONE (09:00)
[2020-06-18] MEDS: ENSURE ENLIVE 237 ML CAN PO SCH (09:37)
[2020-06-18 11:32] VITALS: BP 145/70; TEMP 97.8
--- NOTE | 2020-06-18 11:55 | PN ---
Date of Progress Note: 06/18/2020 Subjective: The patient is awake, alert, tolerating a full liquid diet. Having bowel movements in h is colostomy and air. No abdominal pain. Objective: Vitals: Stable. Afebrile. Abdomen: Soft, nondistended, nontender. Positive bowel sounds. Laboratory Data: White count is 8.1. Chemistry reviewed and within normal limits. Assessment: Small bowel obstruction, resolved. Recommendations: Advance GI soft if tolerated. Can be discharged home. The patient was advised to eat small frequent meals, foods that are easy to digest and get a colonoscopy as an outpatient and if his small bowel obstruction episodes continue, he would need an exploratory laparotomy, diagnostic l aparoscopy, likely for lysis of adhesion. Plan of care discussed in detail with the patient. JOELLEN/LUÍS Voice ID: [id number] Report ID: [id number]
--- NOTE | 2020-06-18 11:59 | P.DS ---
Admission Date: 06/15/20 Discharge Date: 06/18/20 Primary Care Provider: Dr. Spivey Disposition: ROUTINE DISCHARGE Discharge Condition: FAIR Reason for Admission: SBO - Problems (1) Small bowel obstruction Current Visit: Yes Status: Acute (2) Hyperthyroidism Current Visit: Yes Status: Acute (3) History of colon cancer Current Visit: Yes Status: Chronic (4) Thyroid disease Current Visit: Yes Status: Chronic (5) Leukocytosis Current Visit: Yes Status: Acute Brief History of Present Illness: 64-year-old gentleman with a history of colon cancer, hypothyroidism, history of bowel resection with colonoscopy presented to the emergency department with a complaint of abdominal pain worse with meals. Patient had a small bowel obstruction January last year which was managed conservatively and did not require surgery. CT abdomen and pelvis done in the emergency department showed small bowel dilatation and air-fluid levels indicating small-bowel obstruction with transition point in the mid to distal ileum. General surgeon Dr. Zuleta was contacted, NG tube was inserted in the ED and patient admitted for further management. Hospital Course: Patient admitted to the medical floor and managed conservatively with IV hydrat ion, IV antibiotics and NG-tube to suction. He was seen in consultation by general surgeon-Dr. Zuleta who recommended medical management at this time. Patient recurrent bowel obstruction is suspected to be related to adhesions. He does have a history of colon cancer. CT abdomen and pelvis done in the ED did not show any obstruction mass. Patient subsequently had multiple bowel movement, small-bowel obstruction resolved. Patient tolerated diet advancement from liquid to soft diet. Patient would like to undergo surgery to remove any adhesion that courses in to develop recurrent bowel obstruction. Dr. Zuleta recommended to him colonoscopy to evaluate for colon cancer recurrence before consideration for abdominal surgery. Patient voiced understanding and will follow up with his GI for arrangement for colonoscopy. Patient has clinically improved and deemed stable for discharge. Vital Signs/Physical Exam: Temp Pulse Resp BP Pulse Ox 97.8 F 57 18 145/70 H 95 06/18/20 11:32 06/18/20 11:32 06/18/20 11:32 06/18/20 11:32 06/18/20 11:32 General: Alert, In no apparent distress, Oriented x3 HEENT: Mucous membr. moist/pink Neck: Supple Respiratory: Clear to auscultation bilaterally, Normal air movement Cardiovascular: No edema, Regular rate/rhythm, Normal S1 S2 Gastrointestinal: Normal bowel sounds, Soft and benign, Non-distended, No tenderness Musculoskeletal: No swelling, No tenderness Integumentary: No rashes Neurological: Normal strength at 5/5 x4 extr Laboratory Data at Discharge: WBC 8.10 K/uL (4.3-10.9) D 06/18/20 04:12 Hgb 13.7 g/dL (13.6-17.9) 06/18/20 04:12 Hct 40.9 % (39.6-49.0) 06/18/20 04:12 Plt Count 170 K/uL (152-406) 06/18/20 04:12 Sodium 144 mmol/L (136-145) 06/18/20 04:12 Potassium 3.8 mmol/L (3.5-5.1) 06/18/20 04:12 BUN 11 mg/dL (7-18) 06/18/20 04:12 Creatinine 0.91 mg/dL (0.55-1.3) 06/18/20 04:12 Glucose 93 mg/dL (74-106) 06/18/20 04:12 Phosphorus 1.9 mg/dL (2.5-4.9) L 06/17/20 05:37 Magnesium 2.1 mg/dL (1.8-2.4) 06/17/20 05:37 Total Bilirubin 0.8 mg/dL (0.2-1.0) 06/16/20 06:45 AST 12 U/L (15-37) L 06/16/20 06:45 ALT 21 U/L (12-78) 06/16/20 06:45 Alkaline Phosphatase 65 U/L (45-117) 06/16/20 06:45 Lipase 52 U/L (73-393) L 06/15/20 18:10 Home Medications: Ensure Enlive 237 ml PO BID #60 can 06/18/20 methIMAzole [Tapazole*] 20 mg PO BID #60 tab 06/18/20 New Medications: Ensure Enlive 237 ml PO BID #60 can methIMAzole [Tapazole*] 20 mg PO BID #60 tab Diet: ADA Activity: Ad myke Followup: NONE,NONE [Primary Care Provider] - Time spent managing pt's care (in minutes): 38
== END 2020-06-18 14:25 | disposition home or self-care (01) | DRG 390 ==
LOC: ER 16:53 → ERHOLD 20:56 → 4TH 23:21 → 2ND 06-18 10:44
PROVIDERS: ADMIT Internal Medicine; ATTEND Internal Medicine
DX: K56.50 Intestinal adhesions [bands], unspecified as to partial versus complete obstruction (principal); D72.829 Elevated white blood cell count, unspecified; E07.9 Disorder of thyroid, unspecified; E87.5 Hyperkalemia; E03.9 Hypothyroidism, unspecified; F17.210 Nicotine dependence, cigarettes, uncomplicated; Z90.49 Acquired absence of other specified parts of digestive tract; Z85.038 Personal history of other malignant neoplasm of large intestine; Z79.899 Other long term (current) drug therapy; Z93.3 Colostomy status; Z20.822 Contact with and (suspected) exposure to COVID-19
CPT/HCPCS: 36415; 71045; 74019; 74177; 80048; 80053; 80076; 81003; 82378; 83690; 83735; 84100; 84439; 84443; 85025; 93005; 96361; 96365; 96368; 96375; 99285; J0692; J0694; J2405; J3475; J7030; Q9967; U0003

== ENCOUNTER 2020-07-15 20:55 | Emergency (ER) | payer SELFPAY ==
--- OUTSIDE RECORDS SUMMARY | 2020-07-15 20:59 | XMS REPORT | Continuity of Care Document ---
:1955 Author Organization [facility] t Address [address] [place] [address] Care Team Providers Name Role Phone Alycia ROMERO, Jonathan. Primary Care Physician Payers Payer Name Policy Type Policy Number Effective Date Expiration Date S ource Problems Condition Condition Condition Status Onset Resolution Last Treating Co mments Source Name Details Category Date Date Treatment Clinician Date Atrial Atrial Disease Active [place] fibrillati fibrillati 1-14 Me thodi on with on with 00:00: st RVR RVR 00 Allergies, Adverse Reactions, Alerts Allergy Allergy Status Severity Reaction(s) Onset Inactive Treating Comm ents Source Name Type Date Date Clinician No Known DA Active U 2019-03 [facility] Allergie 0-10 [place] s 00:00: [facility] 00 are [place] Social History Social Habit Start Date Stop Date Quantity Comments Source History of tobacco Current every Narinder ston [facility] use day smoker Cigarettes smoked 2017-04-06 2017-04-06 [place] [facility] current (pack per 00:00:00 00:00:00 day) - Reported Tobacco use and 2017-04-06 2017-04-06 Current user [place] [facility] exposure 00:00:00 00:00:00 Alcohol intake 2017-04-06 2017-04-06 Current drinker [place] [facility] 00:00:00 00:00:00 of alcohol (finding) Sex [birth year] [place] M ethodist 00:00:00 00:00:00 Smoking Status Start Date Stop Date Source Current every day smoker 2017-04-06 00:00:00 Narinder PúbliKoemeli [facility] Medications Ordered Filled Start Stop Current Ordering Indication Dosage Frequency Signature Comments Components Source Medication Medication Date Date Medication? Clinician (SIG) Name Name methIMAzole 2018-0 Yes 5mg [id number] Take 5 mg Carreon (TAPAZOLE) 1-17 [id number] by mouth 3 Methodi 5 MG tablet 16:18: 3D (three) st 52 times a day. Procedures This patient has no known procedures. Plan of Care Planned Activity Planned Date Details Comments Source Future Scheduled 2020-10-22 INFLUENZA VACCINE [place] [facility] 00:00:00 [code = INFLUENZA VACCINE] Future Scheduled 2006 COLONOSCOPY SCREENING [place] [facility] Test 00:00:00 [code = COLONOSCOPY SCREENING] Future Scheduled 2006 SHINGLES VACCINES [place] [facility] 00:00:00 (#1) [code = SHINGLES VACCINES (#1)] Future Scheduled 1974 Hepatitis C screening [place] [facility] Test 00:00:00 (procedure) [code = [id number]] Future Scheduled 1972 COVID-19 VACCINE (1) [facility] ston [facility] Test 00:00:00 [code = COVID-19 VACCINE (1)] Results Test Description Test Time Test Comments Results Result Comments Source CREATININE POC 2020-01-03 13:04:00 Test Item Value Reference Range Interpretation Comme nts CREATININE POC (test code = CREATP) 0.99 mg/dL 0.6-1.3 N COMPREHENSIVE METABOLIC [id number] 23:08:00 Test Item Value Reference Range Interpretation [...] CA) BILIRUBIN TOTAL 1.2 mg/dL 0.2-1.0 H O-tkwwya-n-b enzoquinone (test code = BILT) imine (NA PQI), a metabolite ofacetaminophen (paracetamol), may generate errone ously lowresults in s amples for patients th at have taken toxic dos esof acetaminophen (paracetamol). SGOT/AST (test code 60 UNITS/L 10-42 H = AST) SGPT/ALT (test code 38 UNITS/L 10-40 N = ALT) ALKALINE PHOSPHATASE 68 UNITS/L 38-126 N (test code = ALKP) [id number] 23:08:00 Test Item Value Reference Range Interpretation Comments LIPASE (test code = LIP) 28 UNITS/L 22-151 N [id number] 23:08:00 Test Item Value Reference Range Interpretation Comments MAGNESIUM (test code = MAG) 2.0 mg/dL 1.7-2.8 N [id number] 23:08:00 Test Item Value Reference Range Interpretation [...] ~~~~~~~~~~~~~~~ ~~~~~~~ ~~~~~~ - XR CHEST 1 [id number] 23:01:00Patient Name: TIARA GLASGOW Unit No: [id number] EXAMS: CPT: [id number] XR CHEST 1 V 24699 PORTABLE CHEST, 01/01/2020. Comparison: None. CLINICAL: Chest pain. COMMENT: The heart, mediastinum, hilar regions and pulmonary vasculature appear within normal limits. The lungs are free of active disease. The bony thorax is intact. IMPRESSION: No evidence to suggest active cardiopulmonary disease. at 2301 Reported and signed by: Juan Hoang MD CC: Technologist: Crescencio Monteiro Time: DAP (Gy m2): Air Kerma (mGy): Trscr Dt/Tm: 01/01/2020 (2300) by:[email or web address] Orig Print D/T: S: 01/01/2020 (2303) BATCH NO: N/A Name: TIARA GLASGOW [facility] [place] [facility] [address] [place] [address] : 1955 Age: 64 Sex: M [place], [place] Loc: T.ERS Exam Date: 01/01/2020 Status: REG ER PH: FAX: PAGE 1 Signed Report COMPREHENSIVE METABOLIC [id number] 22:58:00 Test Item Value Reference Range Interpretation [...] PHOSPHATASE (test code = UNITS/L 38-126 ALKP) [id number] 22:58:00 Test Item Value Reference Range Interpretation Comments LIPASE (test code = LIP) UNITS/L 22-151 [id number] 22:58:00 Test Item Value Reference Range Interpretation Comments MAGNESIUM (test code = MAG) mg/dL 1.7-2.8 [id number] 22:58:00 Test Item Value Reference Range Interpretation Comments ALCOHOL (test code = ALC) mg/dl 0.0-80.0 - CT ABD PELVIS [id number] 22:58:00Patient Name: TIARA GLASGOW Unit No: [id number] EXAMS: CPT: [id number] CT ABD PELVIS W/CONT 37883 TECHNIQUE: CT scan of the abdomen and pelvis performed from the lung bases through the lesser trochanter following the administration of 100 mL Isovue 300 IV contrast. DLP: 530 mGy/cm. The study was performed with radiation dose optimization per ACR practice guidelines and liquid loader's recommendations which includes: automated exposure control, adjustment [...] Name: TIARA GLASGOW [place] Phys: David Hopkins [address] [place] [address] : 1955 Age: 64 Sex: M [place] Loc: T.ERS Exam Date: 01/01/2020 Status: REG ER PH: FAX: PAGE 1Signed Report (CONTINUED) Patient Name: TIARA GLASGOW Unit No:[id number] EXAMS: CPT: [id number] CTABD PELVIS W/CONT 76780 <Continued> ElectronicallySigned by Curry Jessica MD on 01/01/2020 at 2258 Reported and signed by: Curry Jessica MD CC: Technologist: Huong Galeas CTDI: 10 DLP: 530 Trscr Dt/Tm: 01/01/2020 (2257) by:Caryl Orig Print D/T: S: 01/01/2020 (9444) BATCH NO: N/A Name: TIARA GLASGOW Phys: David Hopkins [address] [place] [address] : 1955 Age: 64 [facility] [id number] Loc: T.ERS Exam Date: 01/01/2020 Status:REG ER PH: FAX: PAGE 2 Signed ReportCOMPREHENSIVE METABOLIC [id number] 22:53:00 Test Item Value Reference Range Interpretation [...] PHOSPHATASE (test code = UNITS/L 38-126 ALKP) [id number] 22:53:00 Test Item Value Reference Range Interpretation Comments LIPASE (test code = LIP) UNITS/L 22-151 [id number] 22:53:00 Test Item Value Reference Range Interpretation Comments MAGNESIUM (test code = MAG) mg/dL 1.7-2.8 [id number] 22:53:00 Test Item Value Reference Range Interpretation Comments ALCOHOL (test code = ALC) mg/dl 0.0-80.0 CBC W/AUTO [id number] 22:52:00 Test Item Value Reference Range Interpretation [...] BA#) 0.11 K/mm3 0.0-0.1 H TROPONIN I [id number] 22:44:00 Test Item Value Reference Range Interpretation [...]
[2020-07-15] MEDS ORDERED: ACETAMINOPHEN 325 MG TABLET ONE (23:02)
[2020-07-16] MEDS ORDERED: TETANUS & DIPHTHERIA TOX,ADULT 0.5 ML VIAL ONE (02:50)
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
[2020-07-16 05:01] VITALS: BP 141/82; TEMP 98.4; O2SAT 100
--- NOTE | 2020-07-17 10:03 | RAD REPORT ---
EXAM DESCRIPTION: Ribs Right - 07/16/2020 2:58 am CLINICAL HISTORY: The patient is 64 years old and is Male; trauma TECHNIQUE: Four views of the right ribs. COMPARISON: No relevant prior studies available. FINDINGS: Lungs: Unremarkable as visualized. No consolidation. Pleural space: Unremarkable. No pneumothorax. Bones/joints: No acute rib fracture visualized. IMPRESSION: No acute rib fracture visualized. Electronically signed by: Nubia Jason MD 07/16/2020 4:11 AM CDT Due to temporary technical issues with the PACS/Fluency reporting system, reports are being signed by the in house radiologist without review as a courtesy to ensure prompt reporting. The interpreting r adiologist is fully responsible for the content of the report.
--- NOTE | 2020-07-17 10:05 | RAD REPORT ---
EXAM DESCRIPTION: Kimberly Blanc And Lat (2 Views)07/16/2020 2:58 am CLINICAL HISTORY: The patient is 64 years old and is Male; RIB PAIN - RIGHT TECHNIQUE: Two views of the chest. COMPARISON: No relevant prior studies available. FINDINGS: Lungs: Unremarkable. No consolidation. Pleural space: Unremarkable. No pneumothorax. Heart: Unremarkable. No cardiomegaly. Mediastinum: Unremarkable. Bones/joints: No acute fracture visualized. No acute rib fracture. Old left rib fractures. Multilevel vertebral osteophytes. Upper abdomen: No free air in the visualized upper abdomen. Mildly elevated right hemidiaphragm. IMPRESSION: No acute cardiopulmonary process identified. Electronically signed by: Nubia Jason MD 07/16/2020 4:12 AM CDT Due to temporary technical issues with the PACS/Fluency reporting system, reports are being signed by the in house radiologist without review as a courtesy to ensure prompt reporting. The interpreting r adiologist is fully responsible for the content of the report.
--- NOTE | 2020-07-17 10:07 | RAD REPORT ---
EXAM DESCRIPTION: CT - Head Brain Wo Cont - 07/16/2020 6:10 am CLINICAL HISTORY: The patient is 64 years old and is Male; TRAUMA TECHNIQUE: Axial computed tomography images of the head/brain without intravenous contrast. Sagitt al and coronal reformatted images were created and reviewed. This CT exam was performed using one o r more of the following dose reduction techniques: automated exposure control, adjustment of the mA and/or kV according to patient size, and/or use of iterative reconstruction technique. COMPARISON: No relevant prior studies available. FINDINGS: BRAIN: Unremarkable. The tavera-white matter differentiation is preserved . No hemorrhag e. No significant white matter disease. No edema. No extra-axial fluid collections. VENTRICLES: Unremarkable. No ventriculomegaly. BONES/JOINTS: No acute fracture. SOFT TISSUES: Unremarkable. SINUSES: Unremarkable as visualized. No acute sinusitis. MASTOID AIR CELLS: Unremarkable as visualized. No mastoid effusion. ORBITS: Unremarkable as visualized. IMPRESSION: No acute intracranial findings. Electronically signed by: Nabila Bill MD 07/16/2020 3:08 AM CDT Due to temporary technical issues with the PACS/Fluency reporting system, reports are being signed by the in house radiologist without review as a courtesy to ensure prompt reporting. The interpreting r adiologist is fully responsible for the content of the report.
== END 2020-07-16 04:48 | disposition home or self-care (01) ==
LOC: ER 20:55
DX: S00.83XA Contusion of other part of head, initial encounter (principal); S20.211A Contusion of right front wall of thorax, initial encounter; Y04.2XXA Assault by strike against or bumped into by another person, initial encounter; Y93.89 Activity, other specified; Y92.89 Other specified places as the place of occurrence of the external cause; Z23 Encounter for immunization; F17.210 Nicotine dependence, cigarettes, uncomplicated
CPT/HCPCS: 70450; 71046; 90471; 90714; 99284

== ENCOUNTER 2020-08-19 22:24 | Inpatient (IN) | payer SELFPAY ==
--- OUTSIDE RECORDS SUMMARY | 2020-08-19 22:27 | XMS REPORT | Continuity of Care Document ---
:1955 Author Organization [facility] t Address [address] [place] [address] Care Team Providers Name Role Phone Alycia ROMERO, Jonathan. Primary Care Physician Payers Payer Name Policy Type Policy Number Effective Date Expiration Date S ource Problems Condition Condition Condition Status Onset Resolution Last Treating Co mments Source Name Details Category Date Date Treatment Clinician Date Atrial Atrial Disease Active [place] fibrillati fibrillati 1-14 Me thodi on with on with 00:00: st RVR RVR 00 Allergies, Adverse Reactions, Alerts Allergy Allergy Status Severity Reaction(s) Onset Inactive Treating Comm ents Source Name Type Date Date Clinician No Known DA Active U 2019-03 [facility] Allergie 0-10 [place] s 00:00: [facility] 00 are [place] Social History Social Habit Start Date Stop Date Quantity Comments Source History of tobacco Current every Narinder ston [employer] use day smoker Cigarettes smoked 2017-04-06 2017-04-06 [place] [employer] current (pack per 00:00:00 00:00:00 day) - Reported Tobacco use and 2017-04-06 2017-04-06 Current user [place] [employer] exposure 00:00:00 00:00:00 Alcohol intake 2017-04-06 2017-04-06 Current drinker [place] [employer] 00:00:00 00:00:00 of alcohol (finding) Sex [birth year] [place] M ethodist 00:00:00 00:00:00 Smoking Status Start Date Stop Date Source Current every day smoker 2017-04-06 00:00:00 [facility] PostedInem[facility] [employer] Medications Ordered Filled Start Stop Current Ordering Indication Dosage Frequency Signature Comments Components Source Medication Medication Date Date Medication? Clinician (SIG) Name Name Mirian 2018- Yes 5mg [id number] Take 5 mg Carreon (TAPAZOLE) 1-17 [id number] by mouth 3 Methodi 5 MG tablet 16:18: 3D (three) st 52 times a day. Procedures This patient has no known procedures. Plan of Care Planned Activity Planned Date Details Comments Source Future Scheduled 2020-10-22 INFLUENZA VACCINE [place] [facility] [place] 00:00:00 [code = INFLUENZA VACCINE] Future Scheduled 2006 COLONOSCOPY SCREENING [place] [employer] Test 00:00:00 [code = COLONOSCOPY SCREENING] Future Scheduled 2006 SHINGLES VACCINES [place] [employer] 00:00:00 (#1) [code = SHINGLES VACCINES (#1)] Future Scheduled 1974 Hepatitis C screening [place] [employer] Test 00:00:00 (procedure) [code = 021115528] Future Scheduled 1968 COVID-19 VACCINE (1) [place] st[place] [employer] Test 00:00:00 [code = COVID-19 VACCINE (1)] Results Test Description Test Time Test Comments Results Result Comments Source CREATININE POC 2020-01-03 13:04:00 Test Item Value Reference Range Interpretation Comme nts CREATININE POC (test code = CREATP) 0.99 mg/dL 0.6-1.3 N COMPREHENSIVE METABOLIC [id number] 23:08:00 Test Item Value Reference Range Interpretation [...] CA) BILIRUBIN TOTAL 1.2 mg/dL 0.2-1.0 H M-qscntl-t-b enzoquinone (test code = BILT) imine (NA PQI), a metabolite ofacetaminophen (paracetamol), may generate errone ously lowresults in s amples for patients th at have taken toxic dos esof acetaminophen (paracetamol). SGOT/AST (test code 60 UNITS/L 10-42 H = AST) SGPT/ALT (test code 38 UNITS/L 10-40 N = ALT) ALKALINE PHOSPHATASE 68 UNITS/L 38-126 N (test code = ALKP) [id number] 23:08:00 Test Item Value Reference Range Interpretation Comments LIPASE (test code = LIP) 28 UNITS/L 22-151 N [id number] 23:08:00 Test Item Value Reference Range Interpretation Comments MAGNESIUM (test code = MAG) 2.0 mg/dL 1.7-2.8 N [id number] 23:08:00 Test Item Value Reference Range Interpretation [...] ~~~~~~~~~~~~~~~ ~~~~~~~ ~~~~~~ - XR CHEST 1 [id number] 23:01:00Patient Name: TIARA GLASGOW Unit No: [id number] EXAMS: CPT: [id number] XR CHEST 1 V 76500 PORTABLE CHEST, 01/01/2020. Comparison: None. CLINICAL: Chest [...] (2303) BATCH NO: N/A Name: TIARA GLASGOW [facility] [place] Phys: David Hopkins [facility] [address] [place] [address] : 1955 Age: 64 Sex: M [place], [place] Loc: T.ERS Exam Date: 01/01/2020 Status: REG ER PH: FAX: PAGE 1 Signed Report COMPREHENSIVE METABOLIC [id number] 22:58:00 Test Item Value Reference Range Interpretation [...] PHOSPHATASE (test code = UNITS/L 38-126 ALKP) [id number] 22:58:00 Test Item Value Reference Range Interpretation Comments LIPASE (test code = LIP) UNITS/L 22-151 [id number] 22:58:00 Test Item Value Reference Range Interpretation Comments MAGNESIUM (test code = MAG) mg/dL 1.7-2.8 [id number] 22:58:00 Test Item Value Reference Range Interpretation Comments ALCOHOL (test code = ALC) mg/dl 0.0-80.0 - CT ABD PELVIS [id number] 22:58:00Patient Name: TIARA GLASGOW Unit No: [id number] EXAMS: CPT: [id number] CT ABD PELVIS W/CONT 73401 TECHNIQUE: CT scan of the abdomen and pelvis performed from the lung bases through the lesser trochanter following the administration of 100 mL Isovue 300 IV contrast. DLP: 530 mGy/cm. The study was performed with radiation dose optimization per ACR practice guidelines and wire strander's recommendations which includes: automated exposure control, adjustment [...] treatment including radiation treatment. Name: TIARA GLASGOW Phys: David Hopkins [address] [place] [address] : 1955 Age: 64 Sex: [place] Loc: T.ERS Exam Date: 01/01/2020 Status: REG ER PH: FAX: PAGE 1Signed Report (CONTINUED) Patient Name: TIARA GLASGOW Unit No:[id number] EXAMS: CPT: [id number] CTABD PELVIS W/CONT 07478 <Continued> ElectronicallySigned by Curry Jessica MD on 01/01/2020 at 2258 Reported and signed by: Curry Jessica MD CC: Technologist: Huong Galeas CTDI: 10 DLP: 530 Trscr Dt/Tm: 01/01/2020 (2257) by:Caryl Orig Print D/T: S: 01/01/2020 (6415) BATCH NO: N/A Name: TIARA GLASGOW Phys: David Hopkins [address] [place] [address] : 1955 Age: 64 Sex: [place] Loc: T.ERS Exam Date: 01/01/2020 Status:REG ER PH: FAX: PAGE 2 Signed ReportCOMPREHENSIVE METABOLIC [id number] 22:53:00 Test Item Value Reference Range Interpretation [...] PHOSPHATASE (test code = UNITS/L 38-126 ALKP) [id number] 22:53:00 Test Item Value Reference Range Interpretation Comments LIPASE (test code = LIP) UNITS/L 22-151 [id number] 22:53:00 Test Item Value Reference Range Interpretation Comments MAGNESIUM (test code = MAG) mg/dL 1.7-2.8 [id number] 22:53:00 Test Item Value Reference Range Interpretation Comments ALCOHOL (test code = ALC) mg/dl 0.0-80.0 CBC W/AUTO [id number] 22:52:00 Test Item Value Reference Range Interpretation [...] BA#) 0.11 K/mm3 0.0-0.1 H TROPONIN I [id number] 22:44:00 Test Item Value Reference Range Interpretation Comments TROPONIN I RAPID 0.00 ng/mL 0.00-0.08 N ISTAT (test code = TROPONIN I TROPIRAP) CRITERIA0.00-0. 08 ng/mL - Negative>0.08 n g/mL - Positive The us e of serial sampling and te sting protocol is are commended practice.An juele vated troponin level alone is often not suffi cient fordiagnosis of myocardial infarction. Zayra raygoza results obtaine d by different assay s may vary.Evaluation of the extent of myoca rdial damage based on increase of troponin would be valid only if similar methodology is used.
[2020-08-19 23:45] LABS: Absolute Lymphocytes (CBC) 0.2 K/uL (0.7-4.9); Hematocrit 52.7 % (39.6-49.0); Lymphocytes % 0.7 % (15.3-44.8); MPV 8.4 fL (7.6-11.3); RBC Red Blood Cell Count 5.72 M/uL (4.33-5.43)
[2020-08-19] MEDS ORDERED: NA CHLORIDE 0.9% 1,000 ML ONE (23:46)
[2020-08-19] MEDS ORDERED: ONDANSETRON 4 MG/2 ML VIAL ONE (23:46)
[2020-08-19] MEDS ORDERED: MORPHINE 4 MG/ML SYR ONE (23:46)
[2020-08-20 00:03] LABS: Albumin 4.1 g/dL (3.4-5.0); Bilirubin Direct 0.3 mg/dL (0-0.2); Bilirubin Total 1.2 mg/dL (0.2-1.0); Potassium 4.4 mmol/L (3.5-5.1); Protein, Total 7.5 g/dL (6.4-8.2)
[2020-08-20 00:13] LABS: Thyroid Stimulating Hormone < 0.005 uIU/mL (0.360-3.740)
[2020-08-20 00:51] LABS: Blood Morphology Comment NOT SEEN (NOT SEEN); Platelet Estimate ADEQ
[2020-08-20 00:59] LABS: SARS-COV-2 RT PCR NEGATIVE (NEGATIVE)
--- NOTE | 2020-08-20 01:45 | EDPHYS ---
Physician Documentation [facility] Name: Rolando De León Age: 64 yrs Sex: Male : 1955 Arrival Date: 08/19/2020 Time: 22:27 Bed 5 Private MD: ED Physician Zhang Jimenez HPI: 08/19 23:26 This 64 yrs old Male presents to ER via Ambulatory with complaints of pm1 Vomiting. 23:26 The patient presents to the emergency department with nausea, vomiting. Onset: The pm1 symptoms/episode began/occurred today. Possible causes: unknown. The symptoms are aggravated by nothing. The symptoms are alleviated by nothing. Associated signs and symptoms: Pertinent positives: abdominal pain, Pertinent negatives: diarrhea, fever. Severity of symptoms: in the emergency department the symptoms are unchanged. The patient has experienced similar episodes in the past, a few times. The patient has not recently seen a physician. 23:26 Feels similar to prior bowel obstructions. pm1 Historical: - Allergies: 22:53 No Known Allergies; iw - Home Meds: 22:53 methimazole 10 mg Oral tab 1 tab once daily [Active]; iw - PMHx: 22:53 Thyroid problem; iw - PSHx: 22:53 ileostomy; Colostomy; leg; iw - Immunization history:: Adult Immunizations not up to date, Client reports having NOT received the Covid vaccine. - Social history:: Smoking status: Patient reports the use of cigarette tobacco products, smokes one pack cigarettes per day. ROS: 23:26 Eyes: Negative for injury, pain, redness, and discharge, ENT: Negative for injury, pm1 pain, and discharge, Neck: Negative for injury, pain, and swelling, Cardiovascular: Negative for chest pain, palpitations, and edema, Respiratory: Negative for shortness of breath, cough, wheezing, and pleuritic chest pain. 23:26 Back: Negative for injury and pain, MS/Extremity: Negative for injury and deformity, Skin: Negative for injury, rash, and discoloration, Neuro: Negative for headache, weakness, numbness, tingling, and seizure. 23:26 Constitutional: Positive for poor PO intake, Negative for fever. 23:26 Abdomen/GI: Positive for abdominal pain, nausea and vomiting, Negative for diarrhea, constipation. Exam: 23:26 Constitutional: This is a well developed, well nourished patient who is awake, alert, pm1 and in no acute distress. Head/Face: Normocephalic, atraumatic. 23:26 Back: No spinal tenderness. No costovertebral tenderness. Full range of motion. Skin: Warm, dry with normal turgor. Normal color with no rashes, no lesions, and no evidence of cellulitis. MS/ Extremity: Pulses equal, no cyanosis. Neurovascular intact. Full, normal range of motion. 23:26 Eyes: Exam is negative for acute changes, Extraocular movements: no acute changes, Conjunctiva: normal. 23:26 ENT: Exam is negative for acute changes, Mouth: Lips: normal, Oral mucosa: normal, pink and intact, moist. 23:26 Cardiovascular: Exam negative for acute changes, Rate: normal, Rhythm: regular, Pulses: no pulse deficits are appreciated, Edema: is not appreciated. 23:26 Respiratory: Exam negative for acute changes, respiratory distress, shortness of breath, Breath sounds: are clear throughout. 23:26 Abdomen/GI: Inspection: ostomy bag LUQ, Palpation: soft, in all quadrants, mild abdominal tenderness, in the epigastric area. 23:26 Neuro: Exam negative for acute changes, Orientation: is normal, Mentation: is normal, Motor: is normal, moves all fours. Vital Signs: 22:50 BP 157 / 65; Pulse 69; Resp 16; Temp 98.1; Pulse Ox 98% on R/A; Weight 58.97 kg; Height iw 5 ft. 11 in. (180.34 cm); Pain 8/10; 08/20 00:00 BP 155 / 65; Pulse 61; Resp 16; Pulse Ox 97% on R/A; lp1 02:00 BP 105 / 57; Pulse 59; Resp 18; Pulse Ox 95% on R/A; lp1 08/19 22:50 Body Mass Index 18.13 (58.97 kg, 180.34 cm) iw MDM: 08/19 23:06 Patient medically screened. pm1 08/20 01:43 Differential diagnosis: Nonspecific abd pain, gastritis, diverticulitis, mh7 gastroenteritis, Bowel obstruction. Data reviewed: vital signs, nurses notes, lab test result(s), CBC, electrolytes, radiologic studies, CT scan. Data interpreted: Pulse oximetry: on room air is 97 %. Interpretation: normal. Counseling: I had a detailed discussion with the patient and/or guardian regarding: the historical points, exam findings, and any diagnostic results supporting the discharge/admit diagnosis, lab results, radiology results, the need for further work-up and treatment in the hospital. Response to treatment: the patient's symptoms have mildly improved after treatment. 08/19 23:12 Order name: Basic Metabolic Panel pm1 08/19 23:12 Order name: CBC with Diff; Complete Time: 00:53 pm1 08/19 23:12 Order name: Hepatic Function pm1 08/19 23:12 Order name: Lipase; Complete Time: 00:08 pm 08/19 23:12 Order name: Basic Metabolic Panel; Complete Time: 00:08 EDIN 08/19 23:12 Order name: Liver (Hepatic) Function; Complete Time: 00:08 EDIN 08/19 23:17 Order name: TSH pm1 08/19 23:17 Order name: Thyroid Stimulating Hormone EDIN 08/19 23:49 Order name: Manual Differential; Complete Time: 00:53 EDIN 08/20 00:59 Order name: COVID-19/FLU A+B; Complete Time: 01:06 EDIN 08/20 01:16 Order name: Blood Culture Adult (2) 1 08/19 23:12 Order name: IV Saline Lock; Complete Time: 23:43 pm1 08/19 23:12 Order name: Labs collected and sent; Complete Time: 23:43 pm1 08/19 23:12 Order name: CT Abd/Pelvis - IV Contrast Only 1 08/20 01:14 Order name: NPO; Complete Time: 01:24 pm1 08/20 01:34 Order name: T4 Free la1 08/20 03:27 Order name: T4 Free; Complete Time: 03:46 EDIN 08/20 06:03 Order name: CBC with Automated Diff EDIN 08/20 06:26 Order name: Hemoglobin A1c EDIN 08/20 01:41 Order name: NG Tube; Complete Time: 02:51 la1 Administered Medications: 08/19 23:30 Drug: NS 0.9% 1000 ml Route: IV; Rate: 1000 ml; Site: left forearm; [facility] 08/20 00:30 Follow up: IV Status: Completed infusion; IV Intake: 1000ml [facility] 08/19 23:36 Drug: Zofran (Ondansetron) 4 mg Route: IVP; Site: left forearm; lp1 08/20 00:00 Follow up: Response: No adverse reaction lp1 08/19 23:36 Drug: morphine 4 mg Route: IVP; Site: left forearm; lp1 08/20 00:00 Follow up: Response: No adverse reaction lp1 01:45 Drug: Rocephin (cefTRIAXone) 1 grams Route: IV; Rate: calculated rate; Site: left lp1 forearm; 02:51 Follow up: IV Status: Completed infusion; IV Intake: 10ml lp1 01:45 Drug: NS 0.9% 1000 ml Route: IV; Rate: 125 ml/hr; Site: left forearm; lp1 02:51 Follow up: IV Status: Infusion continued upon admission lp1 01:46 Drug: Flagyl (metroNIDAZOLE) 500 mg Volume: 100 ml; Route: IVPB; Rate: 200 ml/hr; lp1 Infused Over: 30 mins; Site: left forearm; 02:51 Follow up: IV Status: Completed infusion; IV Intake: 100ml lp1 02:15 Drug: Phenergan (promethazine) 12.5 mg {Note: verbal order per MARTIN Ni.} Route: lp1 IVP; Site: left forearm; 02:52 Follow up: Response: Nausea is decreased lp1 05:55 Drug: Nicoderm CQ 21 mg/24 hr 1 patches {Note: left arm.} Route: Transdermal; Site: lp1 affected area; Disposition: 08/20/20 01:45 Hospitalization ordered by Hai Tavares for Inpatient Admission. Preliminary diagnosis is Small Bowel Obstruction. - Bed requested for Telemetry/MedSurg (Inpatient). - Status is Inpatient Admission. bp - Condition is Stable. - Problem is new. - Symptoms have improved. Signatures: Dispatcher [employer] EDMS Britt Lira RN RN iw Pena, Laura, RN RN lp1 Bay Herring FNP-C FNP-Aline Carias RN RN cg Marinas, Patrick, JEYSON MOP HANDLE ASSEMBLER pm1 Gal Hernandez RN RN bp Botello, Elizabeth eb Holmes, Maurice, MD MD 7 Corrections: (The following items were deleted from the chart) 08/19 23:53 23:12 Influenza Screen (A ordered. [facility] EDIN 23:53 23:12 Influenza Screen (A \T\ B)+BA.LAB.BRZ ordered. [facility] 08/20 02:03 01:45 Hospitalization Ordered by Hai Tavares DO for Inpatient Admission. Preliminary cg diagnosis is Small Bowel Obstruction. Bed requested for Telemetry/MedSurg (Inpatient). Status is Inpatient Admission. Condition is Stable. Problem is new. Symptoms have improved. 7 07:28 02:03 08/20/2020 01:45 Hospitalization Ordered by Hai Tavares DO for Inpatient eb Admission. Preliminary diagnosis is Small Bowel Obstruction. Bed requested for [facility] ER HOLD. Status is Inpatient Admission. Condition is Stable. Problem is new. Symptoms have improved. 08:12 07:28 08/20/2020 01:45 Hospitalization Ordered by Hai Tavares DO for Inpatient bp Admission. Preliminary diagnosis is Small Bowel Obstruction. Bed requested for Telemetry/MedSurg (Inpatient). Status is Inpatient Admission. Condition is Stable. Problem is new. Symptoms have improved. eb
--- NOTE | 2020-08-20 01:45 | ER ---
Nurse's Notes [facility] Name: Rolando De León Age: 64 yrs Sex: Male : 1955 Arrival Date: 08/19/2020 Time: 22:27 Bed 5 Private MD: Diagnosis: Small Bowel Obstruction Presentation: 08/19 22:50 Chief complaint: Patient states: has been vomiting all day long, can't keep anything iw down , feels weak, also having upper abd pain , no fever. Coronavirus screen: vomiting. Ebola Screen: Patient negative for fever greater than or equal to 101.5 degrees Fahrenheit, and additional compatible Ebola Virus Disease symptoms Patient denies exposure to infectious person. Patient denies travel to an Ebola-affected area in the 21 days before illness onset. No symptoms or risks identified at this time. Initial Sepsis Screen: Does the patient meet any 2 criteria? No. Patient's initial sepsis screen is negative. Does the patient have a suspected source of infection? No. Patient's initial sepsis screen is negative. Risk Assessment: Do you want to hurt yourself or someone else? Patient reports no desire to harm self or others. Onset of symptoms was August 19, 2020. 22:50 Method Of Arrival: Ambulatory iw 22:50 Acuity: SOLANGE 2 iw Historical: - Allergies: 22:53 No Known Allergies; iw - Home Meds: 22:53 methimazole 10 mg Oral tab 1 tab once daily [Active]; iw - PMHx: 22:53 Thyroid problem; iw - PSHx: 22:53 ileostomy; Colostomy; leg; iw - Immunization history:: Adult Immunizations not up to date, Client reports having NOT received the Covid vaccine. - Social history:: Smoking status: Patient reports the use of cigarette tobacco products, smokes one pack cigarettes per day. Screenin/30 00:10 Abuse screen: Denies threats or abuse. Denies injuries from another. Nutritional lp1 screening: No deficits noted. Tuberculosis screening: No symptoms or risk factors identified. Fall Risk Total Yeager Fall Scale indicates High Risk Score (45 or more points). Fall prevention measures have been instituted. Side Rails Up X 2 As available patient and family educated on Fall Prevention Program and Strategies. Assessment: 08/19 23:15 General: Appears in no apparent distress. Behavior is agitated. Pain: Complains of pain lp1 in abdomen Pain currently is 7 out of 10 on a pain scale. Neuro: Level of Consciousness is awake, alert, obeys commands, Oriented to person, place, time, situation. Cardiovascular: Patient's skin is warm and dry. Respiratory: Respiratory effort is even, unlabored, Respiratory pattern is regular. GI: Abdomen is flat, Colostomy site Reports lower abdominal pain, upper abdominal pain, nausea, vomiting. : No signs and/or symptoms were reported regarding the genitourinary system. EENT: No signs and/or symptoms were reported regarding the EENT system. Derm: Skin is fragile, is thin, Skin is dry, Skin is normal. Musculoskeletal: No deficits noted. 08/20 00:30 Reassessment: Patient appears in no apparent distress at this time. Patient resting, lp1 eyes closed, respirations even, unlabored. 02:00 Reassessment: Patient appears in no apparent distress at this time. Provider at bedside lp1 to discuss care and plan for admission; Patient reports nausea, verbal order for Phenergan 12.5mg IV. Vital Signs: 08/19 22:50 BP 157 / 65; Pulse 69; Resp 16; Temp 98.1; Pulse Ox 98% on R/A; Weight 58.97 kg; Height iw 5 ft. 11 in. (180.34 cm); Pain 8/10; 08/20 00:00 BP 155 / 65; Pulse 61; Resp 16; Pulse Ox 97% on R/A; lp1 02:00 BP 105 / 57; Pulse 59; Resp 18; Pulse Ox 95% on R/A; lp1 08/19 22:50 Body Mass Index 18.13 (58.97 kg, 180.34 cm) ED Course: 08/19 22:27 Patient arrived in ED. es 22:51 Triage completed. iw 22:53 Arm band placed on. iw 22:55 Greyson Marte NP is PHCP. pm1 22:55 Zhang Jimenez MD is Attending Physician. pm1 23:20 Inserted saline lock: 20 gauge in left antecubital area, using aseptic technique. Blood ea collected. 08/20 00:09 Cassie Brady, JULIANNE is Primary Nurse. lp1 00:10 Patient has correct armband on for positive identification. Call light in reach. Pulse lp1 ox on. NIBP on. 01:04 CT Abd/Pelvis - IV Contrast Only In Process Unspecified. EDMS 01:45 Hai Tavares DO is Hospitalizing Provider. [facility] 02:43 NGT: inserted 14 Fr. via right nare. verified placement of air over stomach, to iw intermittent suction. Returned gastric contents. 02:52 No provider procedures requiring assistance completed. Patient admitted, IV remains in lp1 place. 07:48 Primary Nurse role handed off by Cassie Brady, RN bp 07:48 Gal Hernandez, RN is Primary Nurse. bp Administered Medications: 08/19 23:30 Drug: NS 0.9% 1000 ml Route: IV; Rate: 1000 ml; Site: left forearm; lp1 08/20 00:30 Follow up: IV Status: Completed infusion; IV Intake: 1000ml lp1 08/19 23:36 Drug: Zofran (Ondansetron) 4 mg Route: IVP; Site: left forearm; lp1 08/20 00:00 Follow up: Response: No adverse reaction lp1 08/19 23:36 Drug: morphine 4 mg Route: IVP; Site: left forearm; lp1 08/20 00:00 Follow up: Response: No adverse reaction lp1 01:45 Drug: Rocephin (cefTRIAXone) 1 grams Route: IV; Rate: calculated rate; Site: left lp1 forearm; 02:51 Follow up: IV Status: Completed infusion; IV Intake: 10ml lp1 01:45 Drug: NS 0.9% 1000 ml Route: IV; Rate: 125 ml/hr; Site: left forearm; lp1 02:51 Follow up: IV Status: Infusion continued upon admission lp1 01:46 Drug: Flagyl (metroNIDAZOLE) 500 mg Volume: 100 ml; Route: IVPB; Rate: 200 ml/hr; lp1 Infused Over: 30 mins; Site: left forearm; 02:51 Follow up: IV Status: Completed infusion; IV Intake: 100ml lp1 02:15 Drug: Phenergan (promethazine) 12.5 mg {Note: verbal order per MARTIN Ni.} Route: lp1 IVP; Site: left forearm; 02:52 Follow up: Response: Nausea is decreased lp1 05:55 Drug: Nicoderm CQ 21 mg/24 hr 1 patches {Note: left arm.} Route: Transdermal; Site: lp1 affected area; Intake: 00:30 IV: 1000ml; Total: 1000ml. lp1 02:51 IV: 10ml; Total: 1010ml. lp1 02:51 IV: 100ml; Total: 1110ml. lp1 Outcome: 01:45 Decision to Hospitalize by Provider. [facility] 02:52 Condition: stable lp1 02:52 Instructed on the need for admit. 02:53 Admitted to ER Hold. Please see [facility] for further documentation. lp1 08:12 Patient left the ED. bp Signatures: Dispatcher [employer] EDEkaterina Baptiste Irene, RN RN Cassie Brady RN RN 1 Greyson Marte, HOSPICE EXECUTIVE DIRECTOR HOSPICE EXECUTIVE DIRECTOR 1 Graciela Chery RN RN ea Peltier, Brian, RN RN Zhang Magallanes MD MD 7 Corrections: (The following items were deleted from the chart) 08/19 22:53 22:50 Acuity: SOLANGE 3 iw iw 08/20 00:11 08/19 23:15 GI: Abdomen is flat, Colostomy site lp1 lp1 08/20 02:53 02:52 Reassessment: Patient appears in no apparent distress at this time. lp1 lp1
[2020-08-20] MEDS ORDERED: METRONIDAZOLE 500mg IVPB 500 MG/100 ML BAG IV ONE (01:49)
[2020-08-20] MEDS ORDERED: NA CHLORIDE 0.9% 1,000 ML ONE (01:49)
[2020-08-20] MEDS ORDERED: CEFTRIAXONE/SWI 1gm 1 GM/10 ML SYR ONE (01:49)
[2020-08-20] MEDS ORDERED: PROMETHAZINE INJ 25 MG/ML AMP ONE (02:20)
[2020-08-20] MEDS ORDERED: FAMOTIDINE 20 MG/2 ML VIAL IV ONE (02:23)
[2020-08-20] MEDS ORDERED: NA CHLORIDE 0.9% 1,000 ML IV SCH ×2 (02:56→09:13)
[2020-08-20] MEDS ORDERED: MORPHINE 2 MG/ML SYR IV PRN (02:56)
[2020-08-20] MEDS ORDERED: ONDANSETRON 4 MG/2 ML VIAL IV PRN (02:56)
[2020-08-20] MEDS ORDERED: ACETAMINOPHEN 650MG/RECT SUPP PR PRN (02:56)
--- NOTE | 2020-08-20 03:11 | P.HP ---
Certification for Inpatient Patient admitted to: Inpatient With expected LOS: >2 Midnights Patient will require the following post-hospital care: None Practitioner: I am a practitioner with admitting privileges, knowledge of patient current condition, hospital course, and medical plan of care. Services: Services provided to patient in accordance with Admission requirements found in Title 42 Section 412.3 of the Code of Federal Regulations Patient History Date of Service: 08/20/20 Primary Care Provider: none Reason for admission: Small-bowel obstruction History of Present Illness: 63-year-old male with history of colorectal surgery status post ileostomy and colostomy with reversal of ileostomy approximately 7 years prior and multiple bowel obstructions (8) presents emergency department for nausea, vomiting, abdominal pain. Patient reports he is passing a small amount of hard stool in his colostomy. Labs significant for white blood cell count 23.7 with left shift, 21% bands chemistry glucose 200 T. bili 1.2 d bili 0.3. Tsh less than 0.005, patient with history of hyperthyroidism currently on medication. CT abdomen pelvis demonstrates small bowel obstruction. General surgery consult while patient is in the emergency department recommends NG tube, NPO, IV antibiotics and admission. When I saw the patient in the ER he was awake, alert, oriented x3. Patient does not appear septic at this time, will admit for further evaluation and management. 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 - Family History Father -: Heart disease Sister -: Heart disease Brother -: Heart disease, Hypertension - Social History Smoking Status: Current every day smoker Alcohol use: No CD- Drugs: No Caffeine use: Yes Place of Residence: Home Review of Systems 10-point ROS is otherwise unremarkable Gastrointestinal: Nausea, Vomiting, Abdominal Pain, Constipation Physical Examination - Physical Exam General: Alert, In no apparent distress, Oriented x3 HEENT: Atraumatic, PERRLA, Mucous membr. moist/pink Neck: Supple, 2+ carotid pulse no bruit, No LAD Respiratory: Clear to auscultation bilaterally, Normal air movement Cardiovascular: Regular rate/rhythm, Normal S1 S2 Gastrointestinal: Normal bowel sounds, No masses, No rebound, No guarding, Other (Colostomy in place), Tenderness (Moderate generalized abdominal tenderness) Musculoskeletal: No tenderness Integumentary: No rashes Neurological: Normal speech, Normal strength at 5/5 x4 extr, Normal tone, Normal affect - Studies Laboratory Data (last 24 hrs) 08/19/20 23:15: WBC 23.70 H*, Hgb 17.4, Hct 52.7 H, Plt Count 212 08/19/20 23:15: Sodium 141, Potassium 4.4, BUN 24 H, Creatinine 1.24, Glucose 200 H, Total Bilirubin 1.2 H, AST 18, ALT 28, Alkaline Phosphatase 77, Lipase 40 L Assessment and Plan - Plan Assessment Small-bowel obstruction with history of colorectal surgery/ileostomy with reversal/colostomy and history of multiple small-bowel obstructions Hyperglycemia Hyperthyroidism Plan Small-bowel obstruction with history of colorectal surgery/ileostomy with reversal/colostomy and history of multiple small-bowel obstructions: General surgery consulted, NPO, NGT to low intermittent wall suction, p.r.n. antiemetics and pain medications, significant leukocytosis noted will continue with Flagyl, Rocephin at this time. Blood cultures obtained. Patient has not had to have surgery for bowel obstructions in the past, all have resolved with bowel rest, NGT. Appreciate further input from general surgery, DVT prophylaxis Lovenox 40 mg subcutaneous once daily. Hyperglycemia: No known history diabetes, will obtain A1c. Hyperthyroidism: Patient currently on medication for hypothyroidism, will need to hold at this time as patient is NPO. Free T4 level pending. Discharge Plan: Home Plan to discharge in: Greater than 2 days - Advance Directives Does patient have a Living Will: No Does patient have a Durable POA for Healthcare: No - Code Status/Comfort Care Code Status Assessed: Yes (Full code) Critical Care: No Time Spent Managing Pts Care (In Minutes): 55
[2020-08-20 03:30] VITALS: BMI 19.2
[2020-08-20 05:46] LABS: Absolute Lymphocytes (CBC) 0.3 K/uL (0.7-4.9); Basophils % 0.1 % (0-1.3); Hematocrit 42.6 % (39.6-49.0); Lymphocytes % 1.7 % (15.3-44.8); MPV 8.4 fL (7.6-11.3); RBC Red Blood Cell Count 4.64 M/uL (4.33-5.43)
[2020-08-20] MEDS ORDERED: NICOTINE 21 MG/PAT TD ONE (06:07)
[2020-08-20] MEDS ORDERED: CEFTRIAXONE 1 GM/NS 50 ML 1 GM/50 ML BAG IV SCH (09:00)
[2020-08-20] MEDS ORDERED: ENOXAPARIN 40 MG/0.4 ML SQ SCH (09:00)
--- NOTE | 2020-08-20 09:07 | P.PN ---
Subjective Date of Service: 08/20/20 Primary Care Provider: none Chief Complaint: Small-bowel obstruction Subjective: Other (Still no passage of gas or stool to the colostomy bag. Pain improved.) Physical Examination - Vital Signs Temperature: 98.9 F Blood Pressure: 111/58 Pulse: 73 Respirations: 18 Pulse Ox (%): 96 - Studies Laboratory Data (last 24 hrs) 08/19/20 23:15: WBC 23.70 H*, Hgb 17.4, Hct 52.7 H, Plt Count 212 08/19/20 23:15: Sodium 141, Potassium 4.4, BUN 24 H, Creatinine 1.24, Glucose 200 H, Total Bilirubin 1.2 H, AST 18, ALT 28, Alkaline Phosphatase 77, Lipase 40 L Assessment & Plan Discharge Plan: Home Plan to discharge in: 72 Hours Physician Review Additional Text: Physical Exam: GENERAL: The patient is a well-developed, well-nourished, in no apparent distress. Alert and oriented x3. Patient reports dry mouth. NG tube in place. VITAL SIGNS: Reviewed HEENT: Head is normocephalic and atraumatic. Extraocular muscles are intact. Pupils are equal, round, and reactive to light and accommodation. Nares appeared normal. Mouth is well hydrated and without lesions. Mucous membranes are moist. NECK: Supple. No carotid bruits. No lymphadenopathy or thyromegaly. LUNGS: Clear to auscultation. No crackles or wheezes are heard. HEART: Regular rate and rhythm, no appreciable gallops, rubs, murmurs or extra heart sounds ABDOMEN: Soft, nontender, and nondistended. Bowel sounds decreased. Colostomy bag in place. No passage of stool or gas noted. EXTREMITIES: Without any cyanosis, clubbing, rash, lesions or peripheral edema. NEUROLOGIC: The patient is oriented to person, place and time. Strength and sensation are grossly intact. Face is symmetric. SKIN: Normal color, turgor and temperature. No ulcerations or rashes noted. Impression: Recurrent small-bowel obstruction with history of colorectal surgery/ileostomy with reversal/colostomy and history of multiple small-bowel obstructions Hyperglycemia Hyperthyroidism Plan: Recurrent small-bowel obstruction with history of colorectal surgery/ileostomy with reversal/colostomy and history of multiple small-bowel obstructions: Patient with history of colorectal surgery and now with colostomy in place. Surgery was done over 7 to 8 years ago. Patient with history of multiple small bowel obstructions resolving on their own. Patient remains n.p.o. at this time. NG tube in place. Encourage ambulation. Will provide incentive spirometer. Continue IV fluids and IV antibiotic therapy. Surgery has been consulted. Await recommendations. DVT prophylaxis in place. Anticipate improvement over the next 24 to 72 hours. I will turn the service over to the hospitalist team tomorrow. I will go plan of care with him. Hyperglycemia: Hemoglobin A1c 5.3. Will monitor blood sugars. Hyperthyroidism: Need to obtain and verify home medication. Levels show hyperthyroid state. Patient will need follow-up with endocrinology. Patient will likely require further endocrinology work-up and treatment as an outpatient. We will try to arrange for local PCP to establish care. Code Status: Full Code DVT prophylaxis: Lovenox Advanced Care Planning-30 minutes: Plan of care for the patient's discharge was discussed in detail with the patient. Patient desires to go home at discharge. Time Spent Managing Pts Care (In Minutes): 55
[2020-08-20] MEDS: METRONIDAZOLE 500mg IVPB 500 MG/100 ML BAG IV SCH ×2 (11:15→16:41)
[2020-08-20] MEDS: D5 0.9 NS 1,000 ML IV SCH (11:15)
--- NOTE | 2020-08-20 18:47 | CON ---
Date of Consultation: 08/20/2020 Reason For Service: Small bowel obstruction. History Of Present Illness: This is the case of a 64-year-old patient with history of rectal cancer, status post ileostomy, colostomy, reversal of ileostomy, but still the patient has a colostomy, who came yesterday with abdominal distention. He says he has failed this before. He does not remember e ating anything out of the usual, but since last surgery few years ago, he has about 7 to 8 bowel obst ructions. He was here, not too long ago a few months ago with the same, improved with conservative t reatment. He states he has been learning how to live with this. The colostomy cannot be reversed an d he is trying to do the best to see if he can have bowel movement and sometimes he gets constipated. His cancer treatment has not been done in this institution, it is done in another institution. The patient states right now that he just had a bowel movement, passing some gas in the ostomy, and larg e bowel movement. The abdomen became flat and he has no pain and no distention anymore. No nausea. No vomiting. No dysuria, hematuria, or any melena through the ostomy. Review of Systems: Ten points otherwise unremarkable. Past Medical History: Thyroid disease, colon cancer. Past Surgical History: Procedure is colon resection and colostomy. Allergies: NONE. Social History: The patient smokes, although he was counseled to stop smoking. He does not drink al cohol. Family History: Heart disease and hypertension. Physical Examination: General: The patient is awake, alert. No distress. No nausea. No vomiting. HEENT: Pupils are equal and reactive. Anicteric. Neck: Supple. Chest: Clear. Abdomen: Soft and depressible. No guarding or rebound. No peritoneal signs. Ostomy looks viable w ith stool content in it and gas. Extremities: Good capillary refill. Rectal: Deferred. Laboratory Data: CAT scan review shows small bowel obstruction with a large bowel full of stools. B lood work; he had initially a WBC count of 23, came down to 15. Chemistry shows potassium is 4.4. Assessment: A 64-year-old patient with small bowel obstruction, not the first time, it is about 8 in the last few years. He feels better right now. He is passing gas. He has a bowel movement. He do es not feel sick anymore. He is asking to have some liquid diet. He understands the risks of that i ncluding aspiration, but he says he feels completely better and he has a bowel movement. Judging by that and clinically since he is asymptomatic at this moment, we can do this and we proposed that to h im. We are going to keep the NG tube in. We are going to put off suction. We can give him some liq uids and sips of clears. I am going to be nice and slow, just sip of clears and if he gets sick, we are going to put the NG tube back in suction. If he does not get sick or nausea or vomiting and he i s continued with asymptomatic, then we may eventually remove the NG tube, but not advance diet yet. He understands the plan. He agrees with that plan and this can also help us with ambulation. HOLLY/LUÍS Voice ID: [id number] Report ID: [id number]
[2020-08-20] MEDS ORDERED: CEFTRIAXONE/SWI 1gm 1 GM/10 ML SYR IVP SCH (21:00)
[2020-08-20] MEDS ORDERED: FAMOTIDINE 20 MG/2 ML VIAL IV SCH (21:00)
[2020-08-20 22:32] VITALS: O2SAT 98
[2020-08-21] MEDS: D5 0.9 NS 1,000 ML IV SCH (00:30)
[2020-08-21] MEDS: METRONIDAZOLE 500mg IVPB 500 MG/100 ML BAG IV SCH ×2 (00:30→10:30)
[2020-08-21 05:12] LABS: Absolute Lymphocytes (CBC) 1.3 K/uL (0.7-4.9); Basophils % 0.4 % (0-1.3); Lymphocytes % 15.8 % (15.3-44.8); MPV 7.9 fL (7.6-11.3); RBC Red Blood Cell Count 4.45 M/uL (4.33-5.43)
[2020-08-21 05:35] LABS: Albumin 2.8 g/dL (3.4-5.0); Bilirubin Total 0.4 mg/dL (0.2-1.0); Magnesium 1.9 mg/dL (1.8-2.4); Potassium 3.6 mmol/L (3.5-5.1); Protein, Total 5.3 g/dL (6.4-8.2)
[2020-08-21 09:39] VITALS: BP 143/66; TEMP 97.9
--- NOTE | 2020-08-21 10:18 | RAD REPORT ---
EXAM DESCRIPTION: RAD - Abdomen 1 View (KUB) - 08/21/2020 6:09 am CLINICAL HISTORY: Abdomen pain. FINDINGS: Small bowel has diminished in caliber. Air is present within the colon. This is an improve ment in the small bowel obstruction.
--- NOTE | 2020-08-21 11:11 | RAD REPORT ---
EXAM DESCRIPTION: CT - Abdomen Pelvis W Contrast - 08/20/2020 3:22 am CLINICAL HISTORY: Abd pain;Nausea / vomiting COMPARISON: 06/15/2020 TECHNIQUE: CT of the abdomen and pelvis performed following IV administration of iodinated contras t. This exam was performed according to our departmental dose-optimization program, which includes au tomated exposure control, adjustment of the mA and/or kV according to patient size and/or use of iter ative reconstruction technique. FINDINGS: Lung Bases: The visualized lung bases are clear. Bones: Multilevel endplate spondylosis and arthropathy. Disc height narrowing at L5/S1. Osteoarthriti c change of the hips. Abdomen: Liver: The liver has normal size and density. No intrahepatic biliary dilatation. Gallbladder: No calcified gallstones. Spleen, Pancreas, and Adrenal Glands: The spleen, pancreas, and adrenal glands are unremarkable. Kidneys: No hydronephrosis or obstructing calculus. Curvilinear irregularities the kidney may be related to previous infectious or inflammatory insult. Stable appearance. Vasculature: Aortoiliac atherosclerosis. IVC is unremarkable. The portal vein is patent. The proxim al visceral and renal arteries are patent. Stomach: The stomach and duodenum have normal course. Other: No free intraperitoneal air. No free fluid or lymphadenopathy. Pelvis: Bladder: Urinary bladder is unremarkable. Bowel: Left lower quadrant colostomy. Postoperative change of the rectum with adjacent fat strandin g which is relatively stable. Moderate amount stool in the colon. Significant dilation of small bowel . The distal ileum is decompressed. Well-defined transition point is not definitely identified. Fecal ization of small bowel. Appendix: None identified. Pelvis: Prostate is not visualized. IMPRESSION: 1. Findings compatible with small bowel obstruction. Well-defined transition point is no t identified. Fecalization of the distally dilated loops of bowel may indicate partial obstruction. 2. Wall thickening and haziness of the distal rectum. This may be related to postoperative change how ever residual or recurrent neoplasm could also produce this appearance. Electronically signed by: Sourav Zapata 08/20/2020 1:20 AM CDT Due to temporary technical issues with the PACS/Fluency reporting system, reports are being signed by the in house radiologists without review as a courtesy to insure prompt reporting. The interpreting radiologist is fully responsible for the content of the report.
--- NOTE | 2020-08-21 12:12 | PN ---
Date of Progress Note: 08/21/2020 Reason For Service: Small bowel obstruction. Subjective: The patient is doing better. Passing flatus. The ostomy bag is completely full of gas. Passing bowel movement. Abdomen is nondistended. No abdominal pain. He feels great. No nausea, no vomiting. Review of Systems: Ten points otherwise unremarkable. Physical Examination: Abdomen: Soft and depressible. Ostomy bag is full gas. Extremities: Good capillary refill. Plan: Advance diet and he wants to go home. If he tolerates diet that were are going to give right now, then he may be able to do so with the condition he comes back to our office and go back to his s urgeons and continue the workup for recurrent small bowel obstruction. HOLLY/LUÍS Voice ID: [id number] Report ID: [id number]
--- NOTE | 2020-08-21 14:19 | P.DS ---
Discharge Date: 08/21/20 Primary Care Provider: none Disposition: ROUTINE DISCHARGE Discharge Condition: GOOD Reason for Admission: Small-bowel obstruction Consultations: General surgery Brief History of Present Illness: 63-year-old male with history of colorectal surgery status post ileostomy and colostomy with reversal of ileostomy approximately 7 years prior and multiple bowel obstructions (8) presents emergency department for nausea, vomiting, abdominal pain. Patient reports he is passing a small amount of hard stool in his colostomy. Labs significant for white blood cell count 23.7 with left shift, 21% bands chemistry glucose 200 T. bili 1.2 d bili 0.3. Tsh less than 0.005, patient with history of hyperthyroidism currently on medication. CT abdomen pelvis demonstrates small bowel obstruction. General surgery consult while patient is in the emergency department recommends NG tube, NPO, IV antibiotics and admission. When I saw the patient in the ER he was awake, alert, oriented x3. Patient does not appear septic at this time, will admit for further evaluation and management. Hospital Course: Patient has done well during hospital stay. Patient is having flatus and moving his bowels. He is tolerating diet as well. He is not willing to stay in the hospital any longer. He had significant leukocytosis. This has resolved. He denies having any fever or any abdominal pain. Clinically patient is improved. At this time, he was stable for discharge home. He needs outpatient follow-up for colonoscopy. Continue taking antibiotics as prescribed. Vital Signs/Physical Exam: Temp Pulse Resp BP Pulse Ox 97.9 F 52 17 143/66 H 98 08/21/20 11:44 08/21/20 11:44 08/21/20 11:44 08/21/20 11:44 08/21/20 11:44 General: Alert, In no apparent distress, Oriented x3 Laboratory Data at Discharge: WBC 8.60 K/uL (4.3-10.9) D 08/21/20 04:50 Hgb 14.1 g/dL (13.6-17.9) 08/21/20 04:50 Hct 41.0 % (39.6-49.0) 08/21/20 04:50 Plt Count 146 K/uL (152-406) L 08/21/20 04:50 Sodium 144 mmol/L (136-145) 08/21/20 04:50 Potassium 3.6 mmol/L (3.5-5.1) 08/21/20 04:50 BUN 19 mg/dL (7-18) H 08/21/20 04:50 Creatinine 0.96 mg/dL (0.55-1.3) 08/21/20 04:50 Glucose 108 mg/dL (74-106) H 08/21/20 04:50 Magnesium 1.9 mg/dL (1.8-2.4) 08/21/20 04:50 Total Bilirubin 0.4 mg/dL (0.2-1.0) 08/21/20 04:50 AST 10 U/L (15-37) L 08/21/20 04:50 ALT 19 U/L (12-78) 08/21/20 04:50 Alkaline Phosphatase 47 U/L (45-117) 08/21/20 04:50 Triglycerides 79 mg/dL (<150) 08/21/20 04:50 Cholesterol 100 mg/dL (<200) 08/21/20 04:50 HDL Cholesterol 46 mg/dL (40-60) 08/21/20 04:50 Cholesterol/HDL Ratio 2.17 08/21/20 04:50 Lipase 40 U/L (73-393) L 08/19/20 23:15 Home Medications: methIMAzole [Tapazole*] 20 mg PO BID #60 tab 06/18/20 Cefdinir [Omnicef] 300 mg PO BID #14 capsule 08/21/20 metroNIDAZOLE [Flagyl] 500 mg PO Q8H #21 tablet 08/21/20 New Medications: metroNIDAZOLE [Flagyl] 500 mg PO Q8H #21 tablet Cefdinir [Omnicef] 300 mg PO BID #14 capsule Physician Discharge Instructions: OK TO DC IV AND DC HOME FOLLOW-UP WITH PRIMARY CARE PROVIDER IN 1-2 WEEKS FOLLOW-UP WITH General surgery IN 1-2 WEEKS RETURN TO THE ER IF symptoms worsen CALL or TEXT DR. MEHTA AT [phone] IF ANY QUESTIONS REGARDING HOSPITAL STAY. PLEASE CALL THE FLOOR AT [phone] IF ANY MEDICATION OR NURSING QUESTIONS. Advise a liquid diet for 48-72 hr. May advance to a soft diet after that. Outpatient colonoscopy in 6-12 weeks is recommended Diet: AHA Activity: Fall precautions Followup: NONE,NONE [Primary Care Provider] - Time spent managing pt's care (in minutes): 35
== END 2020-08-21 15:19 | disposition home or self-care (01) | DRG 390 ==
LOC: ER 22:24 → ERHOLD 08-20 01:47 → 2ND 08-20 07:55
PROVIDERS: ADMIT Family Medicine; ATTEND Hospitalist
DX: K56.609 Unspecified intestinal obstruction, unspecified as to partial versus complete obstruction (principal); E03.9 Hypothyroidism, unspecified; D72.829 Elevated white blood cell count, unspecified; F17.210 Nicotine dependence, cigarettes, uncomplicated; R73.9 Hyperglycemia, unspecified; Z88.8 Allergy status to other drugs, medicaments and biological substances; Z93.3 Colostomy status; Z85.038 Personal history of other malignant neoplasm of large intestine; Z59.0 Homelessness; Z20.822 Contact with and (suspected) exposure to COVID-19
CPT/HCPCS: 0240U; 36415; 74018; 74177; 80048; 80053; 80061; 80076; 82947; 83036; 83690; 83735; 84439; 84443; 85025; 87040; 94010; 96361; 96365; 96375; 99285; J0696; J1650; J2405; J2550; J7030; J7042; Q9967

== ENCOUNTER 2020-08-24 19:00 | Inpatient (IN) | payer SELFPAY ==
--- OUTSIDE RECORDS SUMMARY | 2020-08-24 19:03 | XMS REPORT | Continuity of Care Document ---
:1955 Author Organization [facility] t Address [address] [place] [address] Care Team Providers Name Role Phone Alycia ROMERO, Jonathan. Primary Care Physician Payers Payer Name Policy Type Policy Number Effective Date Expiration Date S ource Problems Condition Condition Condition Status Onset Resolution Last Treating Co mments Source Name Details Category Date Date Treatment Clinician Date Atrial Atrial Disease Active [place] fibrillati fibrillati 1-14 Me thodi on with on with 00:00: st RVR RVR 00 Allergies, Adverse Reactions, Alerts Allergy Allergy Status Severity Reaction(s) Onset Inactive Treating Comm ents Source Name Type Date Date Clinician No Known DA Active U 2019-03 [facility] Allergie 0-10 [place] [facility] 00:[facility]: [facility] 00 are [place] Social History Social Habit Start Date Stop Date Quantity Comments Source History of tobacco Current every [facility] use day smoker Cigarettes smoked 2017-04-06 2017-04-06 [place] [facility] current (pack per 00:00:00 00:00:00 day) - Reported Tobacco use and 2017-04-06 2017-04-06 Current user [place] [facility] exposure 00:00:00 00:00:00 Alcohol intake 2017-04-06 2017-04-06 Current drinker [place] [facility] 00:00:00 00:00:00 of alcohol (finding) Sex Ass[birth year] [place] M ethodist 00:00:00 00:00:00 Smoking Status Start Date Stop Date Source Current every day smoker 2017-04-06 00:00:00 [facility] [employer] [facility] Medications Ordered Filled Start Stop Current Ordering Indication Dosage Frequency Signature Comments Components Source Medication Medication Date Date Medication? Clinician (SIG) Name Name Mirian 2018- Yes 5mg [id number] Take 5 mg Carreon (TAPAZOLE) 1-17 [id number] by mouth 3 Methodi 5 MG tablet 16:18: 3D (three) st 52 times a day. Procedures This patient has no known procedures. Plan of Care Planned Activity Planned Date Details Comments Source Future Scheduled 2020-10-22 INFLUENZA VACCINE [place] [facility] 00:00:00 [code = INFLUENZA VACCINE] Future Scheduled 2006 COLONOSCOPY SCREENING [place] [facility] Test 00:00:00 [code = COLONOSCOPY SCREENING] Future Scheduled 2006 SHINGLES VACCINES [place] [facility] 00:00:00 (#1) [code = SHINGLES VACCINES (#1)] Future Scheduled 1974 Hepatitis C screening [place] [facility] Test 00:00:00 (procedure) [code = 892157469] Future Scheduled 1968 COVID-19 VACCINE (1) [place] [facility] Test 00:00:00 [code = COVID-19 VACCINE (1)] Results Test Description Test Time Test Comments Results Result Comments Source CREATININE POC 2020-01-03 13:04:00 Test Item Value Reference Range Interpretation Comme nts CREATININE POC (test code = CREATP) 0.99 mg/dL 0.6-1.3 N COMPREHENSIVE METABOLIC [id number] 23:08:00 Test Item Value Reference Range Interpretation [...] CA) BILIRUBIN TOTAL 1.2 mg/dL 0.2-1.0 H S-fvlmot-w-b enzoquinone (test code = BILT) imine (NA PQI), a metabolite ofacetaminophen (paracetamol), may generate errone ously lowresults in s amples for patients th at have taken toxic dos esof acetaminophen (paracetamol). SGOT/AST (test code 60 UNITS/L 10-42 H = AST) SGPT/ALT (test code 38 UNITS/L 10-40 N = ALT) ALKALINE PHOSPHATASE 68 UNITS/L 38-126 N (test code = ALKP) [id number] 23:08:00 Test Item Value Reference Range Interpretation Comments LIPASE (test code = LIP) 28 UNITS/L 22-151 N [id number] 23:08:00 Test Item Value Reference Range Interpretation Comments MAGNESIUM (test code = MAG) 2.0 mg/dL 1.7-2.8 N [id number] 23:08:00 Test Item Value Reference Range Interpretation [...] ~~~~~~~~~~~~~~~ ~~~~~~~ ~~~~~~ - XR CHEST 1 [id number] 23:01:00Patient Name: TIARA GLASGOW Unit No: [id number] EXAMS: CPT: [id number] XR CHEST 1 V [id number] PORTABLE CHEST, 01/01/2020. Comparison: None. CLINICAL: Chest [...] (2303) BATCH NO: N/A Name: TIARA GLASGOW [facility] [place] Phys: David Hopkins [facility] [address] [place] [address] : 1955 Age: 64 Sex: M [place], [place] Loc: T.ERS Exam Date: 01/01/2020 Status: REG ER PH: FAX: PAGE 1 Signed Report COMPREHENSIVE METABOLIC [id number] 22:58:00 Test Item Value Reference Range Interpretation [...] PHOSPHATASE (test code = UNITS/L 38-126 ALKP) [id number] 22:58:00 Test Item Value Reference Range Interpretation Comments LIPASE (test code = LIP) UNITS/L 22-151 [id number] 22:58:00 Test Item Value Reference Range Interpretation Comments MAGNESIUM (test code = MAG) mg/dL 1.7-2.8 [id number] 22:58:00 Test Item Value Reference Range Interpretation Comments ALCOHOL (test code = ALC) mg/dl 0.0-80.0 - CT ABD PELVIS [id number] 22:58:00Patient Name: TIARA GLASGOW Unit No: [id number] EXAMS: CPT: [id number] CT ABD PELVIS W/CONT [id number] TECHNIQUE: CT scan of the abdomen and pelvis performed from the lung bases through the lesser trochanter following the administration of 100 mL Isovue 300 IV contrast. DLP: 530 mGy/cm. 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 Name: TIARA GLASGOW Phys: David Hopkins [address] [place] [address] : 1955 Age: 64 Sex: [place] Loc: T.ERS Exam Date: 01/01/2020 Status: REG ER PH: FAX: PAGE 1Signed Report (CONTINUED) Patient Name: TIARA GLASGOW Unit No:[id number] EXAMS: CPT: [id number] CTABD PELVIS W/CONT [id number] <Continued> ElectronicallySigned by Curry Jessica MD on 01/01/2020 at 2258 Reported and signed by: Curry Jessica MD CC: Technologist: Huong Galeas CTDI: 10 DLP: 530 Trscr Dt/Tm: 01/01/2020 (2257) by:Caryl Orig Print D/T: S: 01/01/2020 (2866) BATCH NO: N/A Name: TIARA GLASGOW Phys: David Hopkins [address] [place] [address] : 1955 Age: 64 Sex: M [place] Loc: T.ERS Exam Date: 01/01/2020 Status:REG ER PH: FAX: PAGE 2 Signed ReportCOMPREHENSIVE METABOLIC [id number] 22:53:00 Test Item Value Reference Range Interpretation [...] PHOSPHATASE (test code = UNITS/L 38-126 ALKP) [id number] 22:53:00 Test Item Value Reference Range Interpretation Comments LIPASE (test code = LIP) UNITS/L 22-151 [id number] 22:53:00 Test Item Value Reference Range Interpretation Comments MAGNESIUM (test code = MAG) mg/dL 1.7-2.8 [id number] 22:53:00 Test Item Value Reference Range Interpretation Comments ALCOHOL (test code = ALC) mg/dl 0.0-80.0 CBC W/AUTO [id number] 22:52:00 Test Item Value Reference Range Interpretation [...] BA#) 0.11 K/mm3 0.0-0.1 H TROPONIN I [id number] 22:44:00 Test Item Value Reference Range Interpretation [...]
[2020-08-24 20:18] LABS: Absolute Lymphocytes (CBC) 1.3 K/uL (0.7-4.9); Basophils % 0.2 % (0-1.3); Hematocrit 47.1 % (39.6-49.0); Lymphocytes % 9.9 % (15.3-44.8); MPV 8.4 fL (7.6-11.3); RBC Red Blood Cell Count 5.21 M/uL (4.33-5.43)
[2020-08-24] MEDS ORDERED: NA CHLORIDE 0.9% 1,000 ML ONE (20:27)
[2020-08-24] MEDS ORDERED: ONDANSETRON 4 MG/2 ML VIAL ONE (20:27)
[2020-08-24] MEDS ORDERED: PANTOPRAZOLE 40 MG INJ ONE (20:27)
[2020-08-24] MEDS ORDERED: MORPHINE 4 MG/ML SYR ONE (20:27)
[2020-08-24 20:33] LABS: Albumin 3.9 g/dL (3.4-5.0); Bilirubin Direct 0.1 mg/dL (0-0.2); Bilirubin Total 0.6 mg/dL (0.2-1.0); Potassium 3.6 mmol/L (3.5-5.1); Protein, Total 7.3 g/dL (6.4-8.2)
--- NOTE | 2020-08-24 20:39 | RAD REPORT ---
EXAM DESCRIPTION: RAD - Chest Single View - 08/24/2020 8:33 pm CLINICAL HISTORY: nausea/vomiting Chest pain. COMPARISON: Abdomen 1 View (KUB) dated 08/21/2020; Chest Pa And Lat (2 Views) dated 07/16/2020; Chest Single View dated 06/15/2020 FINDINGS: Portable technique limits examination quality. The lungs are grossly clear. The heart is normal in size. No displaced fractures. IMPRESSION: No acute intrathoracic process suspected.
[2020-08-24] MEDS ORDERED: Ciprofloxacin 200mg IV 200 MG/100 ML IV.SOLN. IV ONE (23:12)
[2020-08-24] MEDS ORDERED: METRONIDAZOLE 500mg IVPB 500 MG/100 ML BAG IV ONE (23:12)
--- NOTE | 2020-08-24 23:18 | EDPHYS ---
Physician Documentation [facility] Name: Rolando De León Age: 64 yrs Sex: Male : 1955 Arrival Date: 08/24/2020 Time: 19:04 Bed 16 Private MD: ED Physician Fred Morales HPI: 08/24 20:05 This 64 yrs old Male presents to ER via Ambulatory with complaints of cp Vomiting, Abdominal Pain. 20:05 The patient presents to the emergency department with vomiting, that is continuous, cp described as bilious, abdominal pain, of the abdomen diffusely. Onset: The symptoms/episode began/occurred suddenly, today. Possible causes: history of bowel obstruction. Historical: - Allergies: 19:27 No Known Allergies; ad5 - Home Meds: 19:59 methimazole 10 mg Oral tab 1 tab once daily [Active]; ap3 - PMHx: 19:27 Thyroid problem; bowel obstruction; ad5 19:59 Cancer; ap3 - PSHx: 19:59 Colostomy; ap3 - Immunization history:: Adult Immunizations up to date. - Social history:: Smoking status: unknown. ROS: 20:10 Constitutional: Positive for poor PO intake, Negative for body aches, chills, fever. cp 20:10 Eyes: Negative for injury, pain, redness, and discharge. cp 20:10 Cardiovascular: Negative for chest pain, edema, palpitations. 20:10 Respiratory: Negative for cough, shortness of breath, wheezing. 20:10 Abdomen/GI: Positive for abdominal pain, nausea and vomiting, Negative for diarrhea, constipation, hematemesis, black/tarry stool, rectal bleeding. 20:10 : Negative for urinary symptoms. 20:10 Neuro: Negative for altered mental status, headache, weakness. 20:10 All other systems are negative. Exam: 20:15 Constitutional: The patient appears in no acute distress, alert, awake, cp non-diaphoretic, non-toxic, well developed, well nourished. 20:15 Head/Face: Normocephalic, atraumatic. cp 20:15 Eyes: Periorbital structures: appear normal, Conjunctiva: normal, no exudate, no injection, Sclera: no appreciated abnormality, Lids and lashes: appear normal, bilaterally. 20:15 ENT: External ear(s): are unremarkable, Nose: is normal, Mouth: Lips: moist, Oral mucosa: moist, Posterior pharynx: Airway: no evidence of obstruction, patent. 20:15 Chest/axilla: Inspection: normal, Palpation: is normal, no crepitus, no tenderness. 20:15 Cardiovascular: Rate: bradycardic, Rhythm: regular, Edema: is not appreciated, JVD: is not appreciated. 20:15 Respiratory: the patient does not display signs of respiratory distress, Respirations: normal, no use of accessory muscles, no retractions, labored breathing, is not present, Breath sounds: are clear throughout, no decreased breath sounds, no stridor, no wheezing. 20:15 Abdomen/GI: Inspection: distension, is not seen, Bowel sounds: active, all quadrants, Palpation: soft, in all quadrants, severe abdominal tenderness, in all quadrants, rebound tenderness, is not appreciated, voluntary guarding, is elicited in all quadrants. 20:15 Back: pain, is absent, ROM is normal. Vital Signs: 19:24 BP 183 / 74; Pulse 52; Resp 20; Temp 97.5; Pulse Ox 98% on R/A; Weight 58.97 kg; Height ad5 5 ft. 11 in. (180.34 cm); Pain 8/10; 20:00 BP 181 / 74; Pulse 54; Resp 17; Pulse Ox 100% on R/A; Pain 8/10; ap3 21:10 BP 165 / 77; Pulse 56; Resp 19; Pulse Ox 97% on R/A; Pain 2/10; ap3 22:00 BP 166 / 73; Pulse 57; Resp 17; Pulse Ox 100% on R/A; ap3 23:14 BP 131 / 61; Pulse 47; Resp 16; Pulse Ox 100% on R/A; ap3 0604 00:05 BP 148 / 67; Pulse 56; Resp 16; Pulse Ox 99% on R/A; ap3 08/24 19:24 Body Mass Index 18.13 (58.97 kg, 180.34 cm) ad5 MDM: 08/24 19:47 Patient medically screened. cp 20:00 Differential diagnosis: gastritis, pancreatitis, diverticulitis, small bowel cp obstruction. 22:46 Physician consultation: Efrain Anthony MD was called at 22:46, was contacted at 22:46, cp regarding consult, patient's condition, would like admission per Dr. Bairon REYNOLDS. 23:10 Data reviewed: vital signs, nurses notes, lab test result(s), radiologic studies, CT cp scan, and as a result, I will admit patient. Physician consultation: Bairon REYNOLDS was contacted at 23:16, regarding admission, to the medical/surgical unit. patient's condition, and will see patient in ED. 08/24 19:56 Order name: Basic Metabolic Panel; Complete Time: 21:13 cp 08/24 19:56 Order name: CBC with Diff; Complete Time: 21:13 cp 08/24 19:56 Order name: Hepatic Function; Complete Time: 21:13 cp 08/24 19:56 Order name: Lipase; Complete Time: 21:13 cp 08/24 19:56 Order name: Lactate; Complete Time: 21:13 cp / 19:56 Order name: PT-INR / 00:34 Order name: COVID-19 : Document "Date of Symptom Onset" if Symptomatic. tt3 08/25 06:15 Order name: CBC with Automated Diff EDMS / 06:24 Order name: Comprehensive Metabolic Panel EDMS / 06:52 Order name: T4 Free EDMS 08/25 06:52 Order name: Thyroid Stimulating Hormone EDMS / 08:03 Order name: Protime (+INR) EDMS / 08:06 Order name: Phosphorus EDMS / 08:06 Order name: Magnesium EDMI 08/24 19:56 Order name: IV Saline Lock; Complete Time: 20:01 cp 08/24 19:56 Order name: Labs collected and sent; Complete Time: 20:01 cp 08/24 19:56 Order name: XRAY Chest (1 view); Complete Time: 21:13 cp 08/24 19:56 Order name: CT Abd/Pelvis - IV Contrast Only cp 08/24 22:29 Order name: NG Tube; Complete Time: 00:03 cp / 09:54 Order name: RAD EDMI 08/25 13:55 Order name: Urinalysis EDMS Administered Medications: 20:13 Drug: NS 0.9% 1000 ml Route: IV; Rate: 1000 ml/hr; Site: right antecubital; ap3 23:37 Follow up: Response: No adverse reaction; IV Status: Completed infusion; IV Intake: ap3 1000ml 20:13 Drug: morphine 4 mg Route: IVP; Site: right antecubital; ap3 23:36 Follow up: Response: No adverse reaction; Pain is decreased ap3 20:13 Drug: Zofran (Ondansetron) 4 mg Route: IVP; Site: right antecubital; ap3 23:36 Follow up: Response: No adverse reaction; Nausea is decreased ap3 20:13 Drug: ProTONIX (pantoprazole) 40 mg Route: IVP; Site: right antecubital; ap3 23:36 Follow up: Response: No adverse reaction ap3 22:56 Drug: Ciprofloxacin 400 mg Volume: 200 ml; Route: IVPB; Infused Over: 60 mins; Site: ad5 right antecubital; 08/25 00:03 Follow up: Response: No adverse reaction; IV Status: Completed infusion ap3 00:03 Drug: metroNIDAZOLE 500 mg Volume: 100 ml; Route: IVPB; Infused Over: 30 mins; Site: ap3 right antecubital; 00:58 Follow up: Response: No adverse reaction; IV Status: Completed infusion; IV Intake: ea 100ml Disposition: 08/24/20 23:17 Hospitalization ordered by Sandoval Leon for Inpatient Admission. Preliminary diagnosis is Small Bowel Obstruction. - Bed requested for Telemetry/MedSurg (Inpatient). - Status is Inpatient Admission. kl - Condition is Stable. - Problem is an ongoing problem. - Symptoms have improved. Signatures: Dispatcher [employer] EDMS Isis Cueva RN RN kl Webb, Martha, RN RN mw Page, Corey, PA PA cp Prokisch, Amanda, RN RN ap3 Davidson, Andrea ad5 Antunez, Elena RN ea Corrections: (The following items were deleted from the chart) 08/24 23:19 23:17 Hospitalization Ordered by Sandoval Leon for Inpatient Admission. Preliminary miguel diagnosis is Small Bowel Obstruction. Bed requested for Telemetry/MedSurg (Inpatient). Status is Inpatient Admission. Condition is Stable. Problem is an ongoing problem. Symptoms have improved. gilberto 08/25 16:12 06 23:19 08/24/2020 23:17 Hospitalization Ordered by Sandoval Leon for Inpatient kl Admission. Preliminary diagnosis is Small Bowel Obstruction. Bed requested for [facility] ER HOLD. Status is Inpatient Admission. Condition is Stable. Problem is an ongoing problem. Symptoms have improved. 0604 17:01 16:12 08/24/2020 23:17 Hospitalization Ordered by Sandoval Leon for Inpatient kl Admission. Preliminary diagnosis is Small Bowel Obstruction. Bed requested for Telemetry/MedSurg (Inpatient). Status is Inpatient Admission. Condition is Stable. Problem is an ongoing problem. Symptoms have improved. 17:01 17:01 08/24/2020 23:17 Hospitalization Ordered by Sandoval Leon for Inpatient kl Admission. Preliminary diagnosis is Small Bowel Obstruction. Bed requested for Telemetry/MedSurg (Inpatient). Status is Inpatient Admission. Condition is Stable. Problem is an ongoing problem. Symptoms have improved. kl
--- NOTE | 2020-08-24 23:18 | ER ---
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 States pain 8/10 currently. Pt reports "bowel obstruction" this past week, NGT placement at that time. D/C home Tues this past week. Coronavirus screen: At this time, the client does not indicate any symptoms associated with coronavirus-19. Ebola Screen: No symptoms or risks identified at this time. Initial Sepsis Screen: Does the patient meet any 2 criteria? No. Patient's initial sepsis screen is negative. Does the patient have a suspected source of infection? No. Patient's initial sepsis screen is negative. Risk Assessment: Do you want to hurt yourself or someone else? Patient reports no desire to harm self or others. Onset of symptoms was August 24, 2020 at 18:30. 19:24 Method Of Arrival: Ambulatory ad5 19:24 Acuity: SOLANGE 2 ad5 Triage Assessment: 19:27 General: Appears uncomfortable, ill, Behavior is calm, cooperative, appropriate for ad5 age. Pain: Complains of pain in epigastric area. GI: Reports upper abdominal pain, nausea, vomiting, Last BM yesterday, loose stool reported. Historical: - Allergies: 19:27 No Known Allergies; ad5 - Home Meds: 19:59 methimazole 10 mg Oral tab 1 tab once daily [Active]; ap3 - PMHx: 19:27 Thyroid problem; bowel obstruction; ad5 19:59 Cancer; ap3 - PSHx: 19:59 Colostomy; ap3 - Immunization history:: Adult Immunizations up to date. - Social history:: Smoking status: unknown. Screenin:57 Abuse screen: Denies threats or abuse. Nutritional screening: No deficits noted. ap3 Tuberculosis screening: No symptoms or risk factors identified. Fall Risk None identified. Assessment: 19:54 General: Appears in no apparent distress. uncomfortable, Behavior is calm, appropriate ap3 for age, agitated. Pain: Complains of pain in epigastric area Pain does not radiate. Pain currently is 8 out of 10 on a pain scale. Quality of pain is described as throbbing, Pain began suddenly, 1 hour ago. Neuro: Level of Consciousness is awake, alert, obeys commands, Oriented to person, place, time, situation. Cardiovascular: Capillary refill < 3 seconds. Respiratory: Airway is patent Respiratory effort is even, unlabored, Respiratory pattern is regular, symmetrical. GI: Abdomen is flat, non-distended, Stools are reported to be loose, Last BM was August 23, 2020. : No signs and/or symptoms were reported regarding the genitourinary system. EENT: No signs and/or symptoms were reported regarding the EENT system. Derm: No signs and/or symptoms reported regarding the dermatologic system. 21:11 Reassessment: Patient and/or family updated on plan of care and expected duration. Pain ap3 level reassessed. patient resting, eyes closed. respirations are even and unlabored. 08/25 00:30 Reassessment: patient provided with hospital bed. ap3 Vital Signs: 08/24 19:24 BP 183 / 74; Pulse 52; Resp 20; Temp 97.5; Pulse Ox 98% on R/A; Weight 58.97 kg; Height ad5 5 ft. 11 in. (180.34 cm); Pain 8/10; 20:00 BP 181 / 74; Pulse 54; Resp 17; Pulse Ox 100% on R/A; Pain 8/10; ap3 21:10 BP 165 / 77; Pulse 56; Resp 19; Pulse Ox 97% on R/A; Pain 2/10; ap3 22:00 BP 166 / 73; Pulse 57; Resp 17; Pulse Ox 100% on R/A; ap3 23:14 BP 131 / 61; Pulse 47; Resp 16; Pulse Ox 100% on R/A; ap3 08/25 00:05 BP 148 / 67; Pulse 56; Resp 16; Pulse Ox 99% on R/A; ap3 08/24 19:24 Body Mass Index 18.13 (58.97 kg, 180.34 cm) ad5 ED Course: 08/24 19:04 Patient arrived in ED. am4 19:27 Triage completed. ad5 19:28 Arm band placed on left wrist. ad5 19:44 Pauline Jacinto, RN is Primary Nurse. ap3 19:45 Pepito Diaz PA is PHCP. cp 19:45 Fred Morales MD is Attending Physician. cp 19:53 Inserted saline lock: 20 gauge in right upper arm, using aseptic technique. Blood jb5 collected. 19:57 Patient has correct armband on for positive identification. Pulse ox on. NIBP on. Warm ap3 blanket given. 20:09 PT-INR Sent. jb5 20:09 Lactate Sent. jb5 20:10 Basic Metabolic Panel Sent. jb5 20:10 CBC with Diff Sent. jb5 20:10 Hepatic Function Sent. jb5 20:10 Lipase Sent. jb5 20:37 XRAY Chest (1 view) In Process Unspecified. EDMS 21:50 CT Abd/Pelvis - IV Contrast Only In Process Unspecified. EDMS 22:26 Primary Nurse role handed off by Pauline Jacinto, RN ap3 22:26 Pauline Jacinto, JULIANNE is Primary Nurse. ap3 23:14 Admitting physician to see patient. ap3 23:16 Sandoval Leon is Hospitalizing Provider. cp 06/04 00:04 NGT: inserted 14 Fr. via right nare. verified placement of air over stomach, verified ap3 return of gastric contents, to intermittent suction. Returned gastric contents. Patient tolerated well. 00:54 No provider procedures requiring assistance completed. Patient admitted, IV remains in ea place. 05:45 Primary Nurse role handed off by Pauline Jacinto, JULIANNE tt3 Administered Medications: 0603 20:13 Drug: NS 0.9% 1000 ml Route: IV; Rate: 1000 ml/hr; Site: right antecubital; ap3 23:37 Follow up: Response: No adverse reaction; IV Status: Completed infusion; IV Intake: ap3 1000ml 20:13 Drug: morphine 4 mg Route: IVP; Site: right antecubital; ap3 23:36 Follow up: Response: No adverse reaction; Pain is decreased ap3 20:13 Drug: Zofran (Ondansetron) 4 mg Route: IVP; Site: right antecubital; ap3 23:36 Follow up: Response: No adverse reaction; Nausea is decreased ap3 20:13 Drug: ProTONIX (pantoprazole) 40 mg Route: IVP; Site: right antecubital; ap3 23:36 Follow up: Response: No adverse reaction ap3 22:56 Drug: Ciprofloxacin 400 mg Volume: 200 ml; Route: IVPB; Infused Over: 60 mins; Site: ad5 right antecubital; 08/25 00:03 Follow up: Response: No adverse reaction; IV Status: Completed infusion ap3 00:03 Drug: metroNIDAZOLE 500 mg Volume: 100 ml; Route: IVPB; Infused Over: 30 mins; Site: ap3 right antecubital; 00:58 Follow up: Response: No adverse reaction; IV Status: Completed infusion; IV Intake: ea 100ml Intake: 08/24 23:37 IV: 1000ml; Total: 1000ml. ap3 08/25 00:58 IV: 100ml; Total: 1100ml. ea Outcome: 08/24 23:17 Decision to Hospitalize by Provider. cp 08/25 00:54 Admitted to ER Hold. Please see [facility] for further documentation. ea Condition: stable Instructed on the need for admit, Demonstrated understanding of instructions. 17:01 Patient left the ED. kl Signatures: Dispatcher [employer] EDMS Isis Cueva RN Pepito Martinez PA PA Leeanne Fitch jb5 Graciela Chery RN RN ea Prokisch, Amanda, RN RN ap3 Trim, Tyler tt3 Radha Anthony Andrea ad5
--- NOTE | 2020-08-25 00:13 | P.HP ---
Certification for Inpatient With expected LOS: >2 Midnights Patient will require the following post-hospital care: None Practitioner: I am a practitioner with admitting privileges, knowledge of patient current condition, hospital course, and medical plan of care. Services: Services provided to patient in accordance with Admission requirements found in Title 42 Section 412.3 of the Code of Federal Regulations Patient History Date of Service: 08/25/20 Reason for admission: SBO History of Present Illness: Mr. De León is a 64 y/o M w/ hx of colorectal surgery s/p ileostomy and colostomy w/ reversal of ileostomy approx 7 years prior and multiple bowel obstructions (8) who was discharged on 08/21/20 for SBO presents to ED w/ vomiting, nausea, and severe abdominal pain 10/31. Pt describes pain as sharp occurring intermittently every few minutes and lasting 20-30 seconds. He states the pain started suddenly today and gradually worsened. He reports that his last BM was 4 days ago. He reports having chills and denies any fevers. Pain has improved since admission. WBC 13.5, CT abdomen/pelvis demonstrates SBO. Pt was awake, alert, and oriented x3 in the ER. Pt reports pain well controlled at this time. Pt does not appear septic at this time, will admit for further evaluation and management. 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 - Family History Father -: Heart disease Sister -: Heart disease Brother -: Heart disease, Hypertension - Social History Alcohol use: No CD- Drugs: Yes Caffeine use: Yes Review of Systems General: Chills Gastrointestinal: As per HPI Physical Examination - Physical Exam General: Alert, In no apparent distress HEENT: Atraumatic, PERRLA, EOMI Neck: Supple Respiratory: Clear to auscultation bilaterally, Normal air movement Cardiovascular: No edema, Normal S1 S2 Gastrointestinal: Normal bowel sounds, Soft and benign, Non-distended, No ascites, No rebound, No guarding Musculoskeletal: No clubbing, No swelling, No tenderness, No warmth Neurological: Normal gait, Normal speech, Cranial nerves 3-12 intact, Normal affect - Studies Laboratory Data (last 24 hrs) 08/24/20 19:52: WBC 13.50 H D, Hgb 16.2, Hct 47.1, Plt Count 195 D 08/24/20 19:52: Sodium 143, Potassium 3.6, BUN 12, Creatinine 1.08, Glucose 101, Total Bilirubin 0.6, AST 26, ALT 45, Alkaline Phosphatase 66, Lipase 111 Assessment and Plan - Problems (Diagnosis) (1) Small bowel obstruction Current Visit: No Status: Acute (2) Leukocytosis Current Visit: No Status: Acute (3) Hyperthyroidism Current Visit: No Status: Chronic (4) History of colon cancer Current Visit: No Status: Chronic - Plan NG tube, NPO, IV antibiotics per surgery consult flagyl and metronidazole trend CBC recheck thyroid panel reconcile and continue home meds Plan to discharge in: Greater than 2 days - Advance Directives Does patient have a Living Will: No Does patient have a Durable POA for Healthcare: No Critical Care: No Time Spent Managing Pts Care (In Minutes): 70
[2020-08-25] MEDS: NA CHLORIDE 0.9% 1,000 ML IV SCH ×3 (01:31→13:18)
[2020-08-25] MEDS ORDERED: MORPHINE 2 MG/ML SYR IV PRN (01:31)
[2020-08-25] MEDS ORDERED: ACETAMINOPHEN 500 MG TAB PO PRN (01:31)
[2020-08-25] MEDS ORDERED: ONDANSETRON 4 MG/2 ML VIAL IV PRN (01:31)
[2020-08-25] MEDS ORDERED: NA CHLORIDE 0.9% 1,000 ML ONE ×2 (02:05→08:49)
[2020-08-25 06:13] LABS: Absolute Lymphocytes (CBC) 1.1 K/uL (0.7-4.9); Basophils % 0.2 % (0-1.3); Hematocrit 42.7 % (39.6-49.0); MPV 8.2 fL (7.6-11.3); RBC Red Blood Cell Count 4.67 M/uL (4.33-5.43)
[2020-08-25 06:18] LABS: Albumin 2.7 g/dL (3.4-5.0); Bilirubin Total 0.5 mg/dL (0.2-1.0); Protein, Total 5.3 g/dL (6.4-8.2)
[2020-08-25 06:52] LABS: Thyroid Stimulating Hormone 0.015 uIU/mL (0.360-3.740)
[2020-08-25 08:01] LABS: Protime INR 1.16
[2020-08-25 08:06] LABS: Magnesium 1.8 mg/dL (1.8-2.4); Phosphorus 3.2 mg/dL (2.5-4.9)
[2020-08-25] MEDS: METRONIDAZOLE 500mg IVPB 500 MG/100 ML BAG IV SCH ×3 (08:40→16:20)
[2020-08-25] MEDS: ENOXAPARIN 40 MG/0.4 ML SQ SCH (08:47)
[2020-08-25] MEDS ORDERED: CIPROFLOXACIN 400mg IV 400 MG/200 ML BAG IV ONE (08:50)
[2020-08-25] MEDS ORDERED: METRONIDAZOLE 500mg IVPB 500 MG/100 ML BAG IV ONE ×2 (08:50→15:26)
[2020-08-25] MEDS ORDERED: ENOXAPARIN 40 MG/0.4 ML SQ ONE (08:50)
[2020-08-25] MEDS ORDERED: SODIUM CHLORIDE 0.9% 10ML INJ IV PRN (08:56)
[2020-08-25] MEDS ORDERED: MAGNESIUM SULFATE 1 gm IVPB 1 GM/100 ML BAG IV ONE ×2 (09:00→09:29)
[2020-08-25] MEDS: NICOTINE 21 MG/PAT TD SCH (09:23)
[2020-08-25] MEDS: PANTOPRAZOLE 40 MG INJ IVP SCH ×2 (09:24→21:29)
[2020-08-25] MEDS ORDERED: NICOTINE 21 MG/PAT TD ONE (09:29)
[2020-08-25] MEDS ORDERED: PANTOPRAZOLE 40 MG INJ ONE (09:30)
--- NOTE | 2020-08-25 09:53 | RAD REPORT ---
EXAM DESCRIPTION: RAD - Abdomen 1 View (KUB) - 08/25/2020 9:27 am CLINICAL HISTORY: bowel obstruction Abdominal pain COMPARISON: Abdomen 1 View (KUB) dated 08/21/2020; Abdomen Pelvis W Contrast dated 08/24/2020 FINDINGS: NG/OG tube is in place. Tip of the tube is in the proximal stomach. Side port of the tubin g is in the distal esophagus. The stomach does appear to be decompressed. The small bowel loops remai n prominent. No free air or pneumatosis have developed. Contrast is present in the bladder from prior contrast CT study. . No significant bony findings IMPRESSION: Small bowel pattern remains prominent. No free air or pneumatosis have developed. NG tube tip is in the proximal stomach. Side port of the tubing is in the distal esophagus. Stomach d oes appear to be decompressed.
[2020-08-25] MEDS: CIPROFLOXACIN 400mg IV 400 MG/200 ML BAG IV SCH ×2 (10:32→21:29)
[2020-08-25 12:48] LABS: Urine Appearance CLEAR (Clear); Urine Bilirubin NEGATIVE (Negative); Urine Blood NEGATIVE (Negative); Urine Color YELLOW (Yellow); Urine Glucose NEGATIVE (Negative); Urine Protein NEGATIVE (Negative); Urine Specific Gravity >=1.030 (1.005-1.030); Urine Urobilinogen 0.2 mg/dL (0.2-1.0); Urine pH 7.5 (5.0-7.0)
--- NOTE | 2020-08-25 13:39 | RAD REPORT ---
EXAM DESCRIPTION: CT - Abdomen Pelvis W Contrast - 08/25/2020 6:37 am CLINICAL HISTORY: Abd pain;Nausea / vomiting. COMPARISON: CT of the abdomen and pelvis from August 20, 2020. TECHNIQUE: CT of the abdomen and pelvis was performed following intravenous administration of iodina sherwin contrast. Arterial phase images of the abdomen and portal venous phase images through the abdomen and pelvis were obtained. Oral contrast was not administered. Axial, coronal, and sagittal soft tiss ue window reconstructions were created and sent to PACS. This exam was performed according to our departmental dose-optimization program, which includes autom ated exposure control, adjustment of the mA and/or kV according to patient size and/or use of iterati ve reconstruction technique. FINDINGS: Thoracic: Mild diffuse intralobular septal thickening in the visualized lower lungs. Minim al right lower lobe atelectasis.. Hepatobiliary: No concerning hepatic lesion identified. The hepatic and portal veins are patent. The gallbladder is favored surgically absent. No biliary ductal dilatation. Pancreas: Unremarkable. Spleen: Unremarkable. Gastrointestinal: Left hemicolectomy, with a left lower quadrant colostomy. Moderate to large amount of fecal material in the colon. Transient small bowel-small bowel intussusception the left upper abdo men. Moderately distended small bowel loops in the lower abdomen, measuring up to 3.8 cm in diameter. Possible transition point in the right lower abdomen, at the location of anastomotic suture material (around axial image 51). Possible mild wall thickening in the small bowel distal to this possible tr ansition point (axial image 62). Unchanged fat stranding and indistinctness about the Samira's pouc h. The appendix is not clearly visualized, but there are no pericecal inflammatory changes. Anastomot ic sutures in right abdomen bowel. Adrenals: No abnormality identified in either adrenal gland. Renal: Multifocal bilateral chronic renal cortical defects. No concerning parenchymal lesion in eithe r kidney. No hydronephrosis or urolithiasis. Bladder/Reproductive: Unremarkable appearance of the urinary bladder by CT technique. Vascular/Lymphatics: No lymphadenopathy identified by CT size criteria. Mild mixed atherosclerosis. T he inferior mesenteric artery is not visualized, likely surgically absent. The other major visceral v essels are patent. Abdominal aorta is normal in caliber. Musculoskeletal: No concerning osseous lesion identified. Fluid / peritoneum: No significant free fluid. No free intraperitoneal air identified. IMPRESSION 1. Left hemicolectomy. Moderate to large amount of fecal material in the colon. 2. Moderately distended small bowel loops in the lower abdomen. Suspected right lower quadrant maxwell sition point at the location of anastomotic sutures and suspected small bowel wall thickening. Correl ate for small bowel obstruction. 3. Additional findings are unchanged from prior. Electronically signed by: Kim Sarmiento MD 08/24/2020 10:17 PM CDT Due to temporary technical issues with the PACS/Fluency reporting system, reports are being signed by the in house radiologists without review as a courtesy to insure prompt reporting. The interpreting radiologist is fully responsible for the content of the report.
[2020-08-25 13:55] LABS: Urine Microscopic Reflex NO UMIC
--- NOTE | 2020-08-25 14:10 | CON ---
Date of Consultation: 08/25/2020 Reason For Service: Small bowel obstruction. History Of Present Illness: This is a case of a 64-year-old patient, known by us in the past due to history of bowel obstruction. He has been seen by a few surgeons in his area too, but his surgeries were done in [place]. The details of the surgeries are known to us. I know he has end colostomy he claims and many ostomies in the past with complications. He has 8 or 9 bowel obstructions in the t year too, but his surgeons in the [place] are just doing conservative treatment. Once again, he is just eating and not taking his stool softeners and his ostomy stopped making gas and bowel movement. He felt bloated. He comes to the ER and then in the last few hours, he started having a lot of bow el movement and also gas. He feels better. The abdomen is soft and depressible and the pain went aw ay and that is usually how he does. Past Medical History: See my previous consult. Surgical History: See my previous consult. Allergies: SEE MY PREVIOUS CONSULT. Medical Problems: See my previous consult. Family History: See my previous consult. Review of Systems: Ten points otherwise unremarkable. No ostomy bleeding. Physical Examination: General: The patient is awake, alert. HEENT: Pupils anicteric. Neck: Supple. NG tube in place. Chest: Clear. Abdomen: Soft and depressible. No guarding or rebound. The ostomy viable, functional with gas and bowel movement on it. Extremities: Good capillary refill. Laboratory Data: Blood work shows WBC count of 9.1 with platelets of 180 and chloride is 109, potass ium 4.0, and glucose 89. CAT scan of the abdomen and pelvis shows small bowel obstruction. Assessment: This is a male with a history of multiple abdominal surgeries and colostomy with multipl e bowel obstructions. He sometimes eats lot of food and then he get this, he forgot to take his stoo l softeners. Developed distention last night, although today feels 100% better. No more abdominal p ain. No nausea, no vomiting. Ostomy is viable putting good bowel movement and also gas. From a zaira gical standpoint, once again, we will continue conservative treatment. He was advised to follow up w ith his primary doctor in his surgeon in [place]. Follow up on his previous surgeries including the reason for his surgery, if this case was neoplasia. The NG tube may be off suction and if he does no t vomit, then may advance diet slowly. We encouraged ambulation. Encourage also to see his gastroen terologist since if this continues, they may have to do his colonoscopy . No surgical inte rvention planned today. HOLLY/LUÍS Voice ID: [id number] Report ID: [id number]
--- NOTE | 2020-08-25 18:25 | P.PN ---
Date of Service: 08/25/20 Patient seen and examined. He stated he is passing gas. He has told him his colostomy bag and denies abdominal pain. NG-tube outputs is blood stained. Repeat KUB shows prominent small bowel. Patient seen and evaluated by Dr. Anthony. Diagnosis: SBO History of colon cancer Plan: Ice chips per Dr. Anthony. Clamp the NG tube tomorrow. Supportive measures IV fluid, pain management as needed. Empiric IV antibiotics.
[2020-08-26] MEDS: METRONIDAZOLE 500mg IVPB 500 MG/100 ML BAG IV SCH ×3 (01:03→16:15)
[2020-08-26] MEDS: NA CHLORIDE 0.9% 1,000 ML IV SCH ×3 (05:12→16:15)
[2020-08-26 05:22] VITALS: BMI 30.9
[2020-08-26 05:50] LABS: Absolute Lymphocytes (CBC) 1.1 K/uL (0.7-4.9); Basophils % 0.3 % (0-1.3); Hematocrit 44.5 % (39.6-49.0); Lymphocytes % 12.5 % (15.3-44.8); RBC Red Blood Cell Count 4.82 M/uL (4.33-5.43)
[2020-08-26] MEDS: PANTOPRAZOLE 40 MG INJ IVP SCH (08:33)
[2020-08-26] MEDS: CIPROFLOXACIN 400mg IV 400 MG/200 ML BAG IV SCH (08:34)
[2020-08-26] MEDS: NICOTINE 21 MG/PAT TD SCH (08:34)
[2020-08-26] MEDS: ENOXAPARIN 40 MG/0.4 ML SQ SCH (08:35)
[2020-08-26 09:25] VITALS: O2SAT 95
--- NOTE | 2020-08-26 13:59 | P.DS ---
Admission Date: 08/25/20 Discharge Date: 08/26/20 Disposition: ROUTINE DISCHARGE Discharge Condition: FAIR Reason for Admission: SBO Consultations: General surgery-Dr. Anthony. - Problems (1) Small bowel obstruction Current Visit: No Status: Acute (2) History of colon cancer Current Visit: No Status: Chronic (3) Hyperthyroidism Current Visit: No Status: Chronic Brief History of Present Illness: 64-year-old gentleman with a history of colon cancer status post colorectal surgery and colostomy, history of recurrent bowel obstruction, most recently discharged from hospitalization a week ago for bowel obstruction presented to the emergency department with a complaint of nausea and vomiting and abdominal pain. Patient reports no BM for [address] abdomen and pelvis showed small bow el obstruction and fecal retention. Patient admitted for further management. Hospital Course: Patient admitted to the medical floor and treated conservatively. NG tube was inserted and patient kept NPO except ice chips for 24 hrs. Patient bowel obstruction improved. He passed gas and had a good bowel movement. He was seen in consultation by general surgery Dr. Anthony. Small-bowel obstruction resolved. Patient tolerated clear liquid diet. Soft diet and stool softeners recommended by surgery. Patient prescribed senna and MiraLax. He is informed to stick to only soft diet at this time. Vital Signs/Physical Exam: Temp Pulse Resp BP Pulse Ox 98.2 F 56 16 146/68 H 96 08/26/20 11:44 08/26/20 11:44 08/26/20 11:44 08/26/20 11:44 08/26/20 11:44 General: Alert, In no apparent distress, Oriented x3 HEENT: Mucous membr. moist/pink Neck: Supple Respiratory: Clear to auscultation bilaterally, Normal air movement Cardiovascular: No edema, Regular rate/rhythm, Normal S1 S2 Capillary refill: <2 Seconds Gastrointestinal: Normal bowel sounds, Soft and benign, Non-distended, Other (Colostomy) Musculoskeletal: No swelling Integumentary: No rashes Neurological: Normal strength at 5/5 x4 extr Laboratory Data at Discharge: WBC 8.90 K/uL (4.3-10.9) 08/26/20 05:34 Hgb 14.8 g/dL (13.6-17.9) 08/26/20 05:34 Hct 44.5 % (39.6-49.0) 08/26/20 05:34 Plt Count 182 K/uL (152-406) 08/26/20 05:34 PT 13.7 SECONDS (9.2-12.8) H 08/25/20 07:21 INR 1.16 08/25/20 07:21 Sodium 142 mmol/L (136-145) 08/26/20 06:19 Potassium 4.0 mmol/L (3.5-5.1) 08/26/20 06:19 BUN 11 mg/dL (7-18) 08/26/20 06:19 Creatinine 0.87 mg/dL (0.55-1.3) 08/26/20 06:19 Glucose 75 mg/dL (74-106) 08/26/20 06:19 Phosphorus 3.2 mg/dL (2.5-4.9) 08/25/20 05:45 Magnesium 2.0 mg/dL (1.8-2.4) 08/26/20 06:19 Total Bilirubin 0.5 mg/dL (0.2-1.0) 08/25/20 05:45 AST 19 U/L (15-37) 08/25/20 05:45 ALT 34 U/L (12-78) 08/25/20 05:45 Alkaline Phosphatase 49 U/L (45-117) 08/25/20 05:45 Lipase 111 U/L (73-393) 08/24/20 19:52 Home Medications: methIMAzole [Tapazole*] 20 mg PO DAILY 08/25/20 Polyethylene Glycol 3350 [Miralax] 17 gm PO DAILY #30 powd.pack 08/26/20 Senosides [Senokot] 2 tab PO BID #120 tab 08/26/20 New Medications: Polyethylene Glycol 3350 [Miralax] 17 gm PO DAILY #30 powd.pack Senosides [Senokot] 2 tab PO BID #120 tab Diet: Soft diet Activity: Ad myke Followup: Unknown,U [Primary Care Provider] - 1-2 Weeks Time spent managing pt's care (in minutes): 28
[2020-08-26 16:20] VITALS: BP 156/70; TEMP 98.4
== END 2020-08-26 19:25 | disposition home or self-care (01) | DRG 390 ==
LOC: ER 19:00 → ERHOLD 08-25 01:24 → 2ND 08-25 16:37
PROVIDERS: ADMIT Physician Assistant; ATTEND Internal Medicine
DX: K56.609 Unspecified intestinal obstruction, unspecified as to partial versus complete obstruction (principal); E03.9 Hypothyroidism, unspecified; D72.829 Elevated white blood cell count, unspecified; Z93.3 Colostomy status; Z85.038 Personal history of other malignant neoplasm of large intestine; Z79.899 Other long term (current) drug therapy; Z59.0 Homelessness
CPT/HCPCS: 36415; 71045; 74018; 74177; 80048; 80053; 80076; 81003; 83605; 83690; 83735; 84100; 84439; 84443; 85025; 85610; 94760; 96361; 96365; 96367; 96375; 99285; C9113; J0744; J1650; J2405; J3475; J7030; Q9967

== ENCOUNTER 2020-10-30 15:10 | Emergency (ER) | payer SELFPAY ==
--- OUTSIDE RECORDS SUMMARY | 2020-10-30 15:14 | XMS REPORT | Continuity of Care Document ---
:[address] [facility] t Address [address] [place] [address] Care Team Providers Name Role Phone Alycia ROMERO, Jonathan. Primary Care Physician Payers Payer Name Policy Type Policy Number Effective Date Expiration Date S ource Problems Condition Condition Condition Status Onset Resolution Last Treating Co mments Source Name Details Category Date Date Treatment Clinician Date Atrial Atrial Disease Active [facility] fibrill[facility] fibrillati [facility] with [facility] with [facility]: [facility]osp[facility] RVR RVR 00 l Allergies, Adverse Reactions, Alerts Allergy Allergy Status Severity Reaction(s) Onset Inactive Treating Comm ents Source Name Type Date Date Clinician No Known DA Active U 2019-03 [facility] Allergie 0-10 [place] [facility] 00:[facility]: [facility] 00 are [place] Social History Social Habit Start Date Stop Date Quantity Comments Source History of tobacco Current every [facility] use day smoker Hospital Cigarettes smoked 2017-04-06 2017-04-[address] current (pack per 00:00:00 00:00:00 Hospita l day) - Reported Tobacco use and 2017-04-06 2017-04-[address] exposure 00:00:00 00:00:00 Hospital Alcohol intake 2017-04-06 2017-04-06 Current drinker [facility] 00:00:00 00:00:00 of alcohol Hospital (finding) Sex Assigned At [birth year] [facility] 00:[facility] Hospital Smoking Status Start Date Stop Date Source Current every day smoker 2017-04-06 00:00:00 Met [facility] Medications Ordered Filled Start Stop Current Ordering Indication Dosage Frequency Signature Comments Components Source Medication Medication Date Date Medication? Clinician (SIG) Name Name Mirian 2018-0 Yes 5mg [id number] Take 5 mg [facility] (TAPAZOLE) 1-17 [id number] by mouth [address] 5 MG tablet 22:18: 3D (three) Hos carlotta 52 times a l day. Procedures This patient has no known procedures. Plan of Care Planned Activity Planned Date Details Comments Source Future Scheduled Test COVID-19 VACCINE (1) [facility] [code = COVID-19 VACCINE (1)] Future Scheduled Test COLONOSCOPY SCREENING [facility] [code = COLONOSCOPY SCREENING] Future Scheduled Test SHINGLES VACCINES (#1) [facility] [code = SHINGLES VACCINES (#1)] Future Scheduled Test INFLUENZA VACCINE [code [facility] = INFLUENZA VACCINE] Results Test Description Test Time Test Comments Results Result Comments Source CREATININE POC 2020-01-03 13:04:00 Test Item Value Reference Range Interpretation Comme nts CREATININE POC (test code = CREATP) 0.99 mg/dL 0.6-1.3 N COMPREHENSIVE METABOLIC [id number] 23:08:00 Test Item Value Reference Range Interpretation [...] CA) BILIRUBIN TOTAL 1.2 mg/dL 0.2-1.0 H P-orzobc-w-b enzoquinone (test code = BILT) imine (NA PQI), a metabolite ofacetaminophen (paracetamol), may generate errone ously lowresults in s amples for patients th at have taken toxic dos esof acetaminophen (paracetamol). SGOT/AST (test code 60 UNITS/L 10-42 H = AST) SGPT/ALT (test code 38 UNITS/L 10-40 N = ALT) ALKALINE PHOSPHATASE 68 UNITS/L 38-126 N (test code = ALKP) [id number] 23:08:00 Test Item Value Reference Range Interpretation Comments LIPASE (test code = LIP) 28 UNITS/L 22-151 N [id number] 23:08:00 Test Item Value Reference Range Interpretation Comments MAGNESIUM (test code = MAG) 2.0 mg/dL 1.7-2.8 N [id number] 23:08:00 Test Item Value Reference Range Interpretation [...] ~~~~~~~~~~~~~~~ ~~~~~~~ ~~~~~~ - XR CHEST 1 [id number] 23:01:00Patient Name: TIARA GLASGOW Unit No: [id number] EXAMS: CPT: [id number] XR CHEST 1 V 23227 PORTABLE CHEST, 01/01/2020. Comparison: None. CLINICAL: Chest [...] m2): Air Kerma (mGy): Trscr Dt/Tm: 01/01/2020 (2301) by:[email or web address] Orig Print D/T: S: 01/01/2020 (2304) BATCH NO: N/A Name: TIARA GLASGOW [facility] [place] Phys: David Hopkins [address] [facility] : 1955 Age: 64 Sex: M [place] Loc: T.ERS Exam Date: 01/01/2020 Status: REG ER PH: FAX: PAGE 1 Signed Report COMPREHENSIVE METABOLIC [id number] 22:58:00 Test Item Value Reference Range Interpretation [...] PHOSPHATASE (test code = UNITS/L 38-126 ALKP) [id number] 22:58:00 Test Item Value Reference Range Interpretation Comments LIPASE (test code = LIP) UNITS/L 22-151 [id number] 22:58:00 Test Item Value Reference Range Interpretation Comments MAGNESIUM (test code = MAG) mg/dL 1.7-2.8 [id number] 22:58:00 Test Item Value Reference Range Interpretation Comments ALCOHOL (test code = ALC) mg/dl 0.0-80.0 - CT ABD PELVIS [id number] 22:58:00Patient Name: TIARA GLASGOW Unit No: [id number] EXAMS: CPT: [id number] CT ABD PELVIS W/CONT 71301 TECHNIQUE: CT scan of the abdomen and pelvis performed from the lung bases through the lesser trochanter following the administration of 100 mL Isovue 300 IV contrast. DLP: 530 mGy/cm. The study was performed with radiation dose optimization per ACR practice guidelines and portable power tool repairer's recommendations which includes: automated exposure control, adjustment [...] treatment. Name: TIARA GLASGOW Phys: David Hopkins [address] [facility] : 1955 Age: 64 Sex: M [place] Loc: T.ERS Exam Date: 01/01/2020 Status: REG ER PH: FAX: PAGE 1Signed Report (CONTINUED) Patient Name: TIARA GLASGOW Unit No:[id number] EXAMS: CPT: [id number] CTABD PELVIS W/CONT 94758 <Continued> ElectronicallySigned by Curry Jessica MD on 01/01/2020 at 2258 Reported and signed by: Curry Jessica MD CC: Technologist: Huong Galeas CTDI: 10 DLP: 530 Trscr Dt/Tm: 01/01/2020 (2257) by:Caryl Orig Print D/T: S: 01/01/2020 (9033) BATCH NO: N/A Name: TIARA GLASGOW Phys: David Hopkins [address] [facility] : 1955 Age: 64 Sex: Saú[place] Syed Loc: T.ERS Exam Date: 01/01/2020 Status:REG ER PH: FAX: PAGE 2 Signed ReportCOMPREHENSIVE METABOLIC [id number] 22:53:00 Test Item Value Reference Range Interpretation [...] PHOSPHATASE (test code = UNITS/L 38-126 ALKP) [id number] 22:53:00 Test Item Value Reference Range Interpretation Comments LIPASE (test code = LIP) UNITS/L 22-151 [id number] 22:53:00 Test Item Value Reference Range Interpretation Comments MAGNESIUM (test code = MAG) mg/dL 1.7-2.8 [id number] 22:53:00 Test Item Value Reference Range Interpretation Comments ALCOHOL (test code = ALC) mg/dl 0.0-80.0 CBC W/AUTO [id number] 22:52:00 Test Item Value Reference Range Interpretation [...] BA#) 0.11 K/mm3 0.0-0.1 H TROPONIN I [id number] 22:44:00 Test Item Value Reference Range Interpretation Comments TROPONIN I RAPID 0.00 ng/mL 0.00-0.08 N ISTAT (test code = TROPONIN I TROPIRAP) CRITERIA0.00-0. 08 ng/mL - Negative>0.08 n g/mL - Positive The us e of serial sampling and te sting protocol is are commended practice.An julee vated troponin level alone is often not suffi cient fordiagnosis of myocardial infarction. Tro ponin results obtaine d by different assay s may vary.Evaluation of the extent of myoca rdial damage based on increase of troponin would be valid only if similar methodology is used.
--- NOTE | 2020-10-30 19:14 | ER ---
Nurse's Notes [facility] Name: Rolando De León Age: 64 yrs Sex: Male : 1955 Arrival Date: 10/30/2020 Time: 15:15 Bed DIS1 Private MD: Diagnosis: Encounter for examination and observation for unspecified qeccpt-TSEBL-22 test Presentation: 10/30 15:51 Chief complaint: Patient states: Fatigue, N/V, achy all over x 1 day. Pt stated, "My kg family member came back positive today with COVID and I just want to get checked out.". Coronavirus screen: Client denies travel out of the [place] in the last 14 days. At this time, unable to obtain information related to travel outside the [place] Client presents with at least one sign or symptom that may indicate coronavirus-19. Standard/surgical mask placed on the client. Provider contacted for isolation considerations. Ebola Screen: Patient negative for fever greater than or equal to 101.5 degrees Fahrenheit, and additional compatible Ebola Virus Disease symptoms Patient denies exposure to infectious person. Patient denies travel to an Ebola-affected area in the 21 days before illness onset. 15:51 Method Of Arrival: Ambulatory kg 15:53 Initial Sepsis Screen: Does the patient meet any 2 criteria? No. Patient's initial kg sepsis screen is negative. Does the patient have a suspected source of infection? No. Patient's initial sepsis screen is negative. Risk Assessment: Do you want to hurt yourself or someone else? Patient reports no desire to harm self or others. Onset of symptoms was October 28, 2020. 15:53 Acuity: SOLANGE 4 kg 15:55 Chief complaint:. kg Triage Assessment: 15:54 General: Appears in no apparent distress. Behavior is calm, cooperative, appropriate kg for age, quiet. Pain: Complains of pain in Generalized. Historical: - Allergies: 15:53 No Known Allergies; kg - Home Meds: 15:53 methimazole 10 mg Oral tab 1 tab once daily [Active]; kg - PMHx: 15:53 bowel obstruction; Cancer; Thyroid problem; kg - PSHx: 15:53 Colostomy; kg 15:54 eye sx; kg - Immunization history:: Adult Immunizations not up to date, Client reports having NOT received the Covid vaccine. - Social history:: Smoking status: Patient reports the use of cigarette tobacco products, smokes one-half pack cigarettes per day, Patient uses street drugs, marijuana. Screenin:55 Abuse screen: Denies threats or abuse. Denies injuries from another. Nutritional kg screening: No deficits noted. Tuberculosis screening: No symptoms or risk factors identified. Fall Risk None identified. Assessment: 19:54 General: Appears in no apparent distress. comfortable, Behavior is calm, cooperative, em appropriate for age. Neuro: Level of Consciousness is awake, alert, obeys commands, Oriented to person, place, time, situation. Cardiovascular: Capillary refill < 3 seconds Patient's skin is warm and dry. Respiratory: Airway is patent Respiratory effort is even, unlabored, Respiratory pattern is regular. Derm: Skin is intact, is healthy with good turgor, Skin is pink, warm \\T\\ dry. Vital Signs: 15:51 BP 124 / 63; Pulse 66; Resp 18; Temp 98.9(O); Pulse Ox 100% ; Weight 57.15 kg (R); kg Height 5 ft. 11 in. (180.34 cm); Pain 4/10; 15:51 Body Mass Index 17.57 (57.15 kg, 180.34 cm) kg ED Course: 15:15 Patient arrived in ED. ds1 15:53 Triage completed. kg 15:54 Arm band placed on. kg 15:55 Patient has correct armband on for positive identification. kg 15:55 No provider procedures requiring assistance completed. Patient did not have IV access kg during this emergency room visit. 19:03 Pepito Diaz PA is PHCP. cp 19:03 Curry Naranjo MD is Attending Physician. cp Administered Medications: No medications were administered Outcome: 19:13 Discharge ordered by . cp 19:54 Discharged to home ambulatory. em 19:54 Condition: good 19:54 Discharge instructions given to patient, Instructed on discharge instructions, follow up and referral plans. Demonstrated understanding of instructions, follow-up care. 19:54 Patient left the ED. em Signatures: Luis Lindsey RN RN em Jyotsna Johnson ds1 Pepito Diaz PA PA cp Maegan Bonds RN RN kg Corrections: (The following items were deleted from the chart) 15:56 15:51 Chief complaint: Patient states: Fatigue, N/V, achy all over x 1 day kg kg
--- NOTE | 2020-10-30 19:14 | EDPHYS ---
Physician Documentation [facility] Name: Rolando De León Age: 64 yrs Sex: Male : 1955 Arrival Date: 10/30/2020 Time: 15:15 Bed DIS1 Private MD: ED Physician Curry Naranjo HPI: 10/30 19:09 This 64 yrs old Male presents to ER via Ambulatory with complaints of Fatigue.cp 19:09 The patient or guardian reports cough, that is intermittent, with no sputum, fatigue, cp body aches. Onset: The symptoms/episode began/occurred this morning. Associated signs and symptoms: Pertinent negatives: chest pain, diarrhea, fever, vomiting. Severity of symptoms: in the emergency department the symptoms are unchanged despite home interventions. Patient reports close contact with son-in-law who tested positive for COVID-19. Patient reports he has not been vaccinated against COVID. Historical: - Allergies: 15:53 No Known Allergies; kg - Home Meds: 15:53 methimazole 10 mg Oral tab 1 tab once daily [Active]; kg - PMHx: 15:53 bowel obstruction; Cancer; Thyroid problem; kg - PSHx: 15:53 Colostomy; kg 15:54 eye sx; kg - Immunization history:: Adult Immunizations not up to date, Client reports having NOT received the Covid vaccine. - Social history:: Smoking status: Patient reports the use of cigarette tobacco products, smokes one-half pack cigarettes per day, Patient uses street drugs, marijuana. ROS: 19:10 Constitutional: Positive for body aches, fatigue, Negative for fever, poor PO intake. cp 19:10 Eyes: Negative for injury, pain, redness, and discharge. cp 19:10 ENT: Negative for drainage from ear(s), ear pain, sore throat, difficulty swallowing, difficulty handling secretions. 19:10 Neck: Negative for pain with movement, pain at rest, stiffness. 19:10 Respiratory: Negative for cough, shortness of breath, wheezing. 19:10 Abdomen/GI: Positive for nausea and vomiting, Negative for abdominal pain, diarrhea, constipation. 19:10 Back: Negative for pain at rest, pain with movement. 19:10 : Negative for urinary symptoms. 19:10 Skin: Negative for rash. 19:10 Neuro: Negative for altered mental status, headache, weakness. 19:10 All other systems are negative. Exam: 19:11 Constitutional: The patient appears in no acute distress, alert, awake, non-toxic, well cp developed, well nourished. 19:11 Head/Face: Normocephalic, atraumatic. cp 19:11 Eyes: Periorbital structures: appear normal, Conjunctiva: normal, no exudate, no injection, Sclera: no appreciated abnormality, Lids and lashes: appear normal, bilaterally. 19:11 ENT: External ear(s): are unremarkable, Nose: is normal, Mouth: Lips: moist, Oral mucosa: pink and intact, moist, Posterior pharynx: Airway: no evidence of obstruction, patent. 19:11 Neck: ROM/movement: is normal, is supple, without pain, no range of motions limitations, no meningismus, Lymph nodes: no appreciated lymphadenopathy. 19:11 Chest/axilla: Inspection: normal, Palpation: is normal, no crepitus, no tenderness. 19:11 Cardiovascular: Rate: normal, Rhythm: regular. 19:11 Respiratory: the patient does not display signs of respiratory distress, Respirations: normal, no use of accessory muscles, no retractions, labored breathing, is not present, Breath sounds: are clear throughout, no decreased breath sounds, no stridor, no wheezing. 19:11 Abdomen/GI: Exam negative for discomfort, distension, guarding, Inspection: abdomen appears normal. Vital Signs: 15:51 BP 124 / 63; Pulse 66; Resp 18; Temp 98.9(O); Pulse Ox 100% ; Weight 57.15 kg (R); kg Height 5 ft. 11 in. (180.34 cm); Pain 4/10; 15:51 Body Mass Index 17.57 (57.15 kg, 180.34 cm) kg MDM: 19:09 Patient medically screened. cp 19:10 Differential diagnosis: bronchitis, flu, URI, COVID-19. cp 19:13 Antibiotic administration: Not indicated, the patient has a suspected viral illness. cp 19:13 Data reviewed: vital signs, nurses notes, lab test result(s), and as a result, I will cp discharge patient. Counseling: I had a detailed discussion with the patient and/or guardian regarding: the historical points, exam findings, and any diagnostic results supporting the discharge/admit diagnosis, lab results, to return to the emergency department if symptoms worsen or persist or if there are any questions or concerns that arise at home. ED course: VSS. Discussed negative results of today's test for COVID. Recommend continued monitoring. 10/30 15:53 Order name: Flu; Complete Time: 18:16 kg 10/30 17:50 Order name: SARS-COV-2 RT PCR; Complete Time: 18:16 EDMS Administered Medications: No medications were administered Disposition: 10/31 07:01 Co-signature as Attending Physician, Curry Naranjo MD I agree with the assessment and rn plan of care. Attestation: The patient's history, exam findings, diagnostics, and a summary of any interventions or procedures was reviewed in detail with Curry Naranjo MD. Disposition Summary: 10/30/20 19:13 Discharge Ordered Location: Home cp Problem: new cp Symptoms: are unchanged cp Condition: Stable cp Diagnosis - Encounter for examination and observation for unspecified reason - COVID-19 test cp Followup: cp - With: Private Physician - When: 2 - 3 days - Reason: Worsening of condition Discharge Instructions: - Discharge Summary Sheet cp - Things to Know about the COVID-19 Pandemic - CDC cp - COVID-19: Quarantine vs. Isolation - CDC cp Forms: - Medication Reconciliation Form cp - Thank You Letter cp - Antibiotic Education cp - Prescription Opioid Use cp Signatures: Dispatcher [employer] Curry Brandt MD MD rn Pepito Diaz PA PA cp Maegan Bonds, RN RN kg Corrections: (The following items were deleted from the chart) 10/30 16:31 15:54 CORONAVIRUS+MRFranLAB.BRZ ordered. EDCO EDCO
[2020-10-30 20:04] VITALS: BP 124/63; TEMP 98.9; O2SAT 100
== END 2020-10-30 19:54 | disposition home or self-care (01) ==
LOC: ER 15:10
DX: R53.83 Other fatigue (principal); Z20.822 Contact with and (suspected) exposure to COVID-19; F17.210 Nicotine dependence, cigarettes, uncomplicated
CPT/HCPCS: 87804; 99281; U0003

== ENCOUNTER 2020-11-10 20:04 | Inpatient (IN) | payer SELFPAY ==
--- OUTSIDE RECORDS SUMMARY | 2020-11-10 20:07 | XMS REPORT | Continuity of Care Document ---
:1955 Author Organization [facility] t Address [address] [place] [address] Care Team Providers Name Role Phone Alycia ROMERO, Jonathan. Primary Care Physician Payers Payer Name Policy Type Policy Number Effective Date Expiration Date S ource Problems Condition Condition Condition Status Onset Resolution Last Treating Co mments Source Name Details Category Date Date Treatment Clinician Date Atrial Atrial Disease Active [facility] fibrillati fibrillati 04-06 [facility] on with [facility] with 00:00: Hospita RVR RVR 00 l Allergies, Adverse Reactions, Alerts Allergy Allergy Status Severity Reaction(s) Onset Inactive Treating Comm ents Source Name Type Date Date Clinician No Known DA Active U 2019-03 [facility]ie 0- Moran s 00:00: [facility] 00 are [place] Social History Social Habit Start Date Stop Date Quantity Comments Source History of tobacco Cigarette Smoker [facility] Cigarettes smoked 2017-04-06 2017-04-[address] current (pack per 00:00:00 00:00:00 Hospita l day) - Reported Tobacco use and 2017-04-06 2017-04-[address] exposure 00:00:00 00:00:00 Hospital Alcohol intake 2017-04-06 2017-04-06 Current drinker [facility] dist 00:00:00 00:00:00 of alcohol Hospital (finding) Sex Ass[birth year] At [birth year] [facility] 00:00:00 00:00:00 Hospital Smoking Status Start Date Stop Date Source Current every day smoker 2017-04-06 00:00:00 [facility] Medications Ordered Filled Start Stop Current Ordering Indication Dosage Frequency Signature Comments Components Source Medication Medication Date Date Medication? Clinician (SIG) Name Name methIMAzole 2018-0 Yes 5mg [id number] Take 5 mg [facility] (TAPAZOLE) 1-17 [id number] by mouth [address] 5 MG tablet 22:18: 3D (three) Hos [place] 52 times a l day. methIMAzole 2018-0 Yes 5mg Q.[id number] Take 5 mg [facility] (TAPAZOLE) 1-17 [id number] by mouth [address] 5 MG tablet 22:18: 3D (three) Hos [place] 52 times a l day. Procedures This patient has no known procedures. Plan of Care Planned Activity Planned Date Details Comments Source Future Scheduled Test COVID-19 VACCINE (1) [facility] [code = COVID-19 VACCINE (1)] Future Scheduled Test COLONOSCOPY SCREENING [facility] [code = COLONOSCOPY SCREENING] Future Scheduled Test SHINGLES VACCINES (#1) [facility] [code = SHINGLES VACCINES (#1)] Future Scheduled Test INFLUENZA VACCINE [code [facility] = INFLUENZA VACCINE] Future Scheduled Test COLONOSCOPY SCREENING [facility] [code = COLONOSCOPY SCREENING] Future Scheduled Test SHINGLES VACCINES (#1) [facility] [code = SHINGLES VACCINES (#1)] Future Scheduled Test INFLUENZA VACCINE [code [facility] = INFLUENZA VACCINE] Future Scheduled Test COVID-19 VACCINE (1) [facility] [code = COVID-19 VACCINE (1)] Results Test Description Test Time Test Comments Results Result Comments Source CREATININE POC 2020-01-03 13:04:00 Test Item Value Reference Range Interpretation Comme nts CREATININE POC (test code = CREATP) 0.99 mg/dL 0.6-1.3 N COMPREHENSIVE METABOLIC [id number] 23:08:00 Test Item Value Reference Range Interpretation [...] CA) BILIRUBIN TOTAL 1.2 mg/dL 0.2-1.0 H H-hvmmbv-y-b enzoquinone (test code = BILT) imine (NA PQI), a metabolite ofacetaminophen (paracetamol), may generate errone ously lowresults in s amples for patients th at have taken toxic dos esof acetaminophen (paracetamol). SGOT/AST (test code 60 UNITS/L 10-42 H = AST) SGPT/ALT (test code 38 UNITS/L 10-40 N = ALT) ALKALINE PHOSPHATASE 68 UNITS/L 38-126 N (test code = ALKP) [id number] 23:08:00 Test Item Value Reference Range Interpretation Comments LIPASE (test code = LIP) 28 UNITS/L 22-151 N [id number] 23:08:00 Test Item Value Reference Range Interpretation Comments MAGNESIUM (test code = MAG) 2.0 mg/dL 1.7-2.8 N [id number] 23:08:00 Test Item Value Reference Range Interpretation [...] ~~~~~~~~~~~~~~~ ~~~~~~~ ~~~~~~ - XR CHEST 1 [id number] 23:01:00Patient Name: TIARA GLASGOW Unit No: [id number] EXAMS: CPT: [id number] XR CHEST 1 V [id number] PORTABLE CHEST, 01/01/2020. Comparison: None. CLINICAL: Chest [...] (2303) BATCH NO: N/A Name: TIARA GLASGOW [facility] [place] Phys: ZHOUKEIKORandi Rosy [facility] [address] [place] [address] : 1955 Age: 64 [place]: [place], [place] Loc: T.ERS Exam Date: 01/01/2020 Status: REG ER PH: FAX: PAGE 1 Signed Report COMPREHENSIVE METABOLIC [id number] 22:58:00 Test Item Value Reference Range Interpretation [...] PHOSPHATASE (test code = UNITS/L 38-126 ALKP) [id number] 22:58:00 Test Item Value Reference Range Interpretation Comments LIPASE (test code = LIP) UNITS/L 22-151 [id number] 22:58:00 Test Item Value Reference Range Interpretation Comments MAGNESIUM (test code = MAG) mg/dL 1.7-2.8 [id number] 22:58:00 Test Item Value Reference Range Interpretation Comments ALCOHOL (test code = ALC) mg/dl 0.0-80.0 - CT ABD PELVIS [id number] 22:58:00Patient Name: TIARA GLASGOW Unit No: [id number] EXAMS: CPT: [id number] CT ABD PELVIS W/CONT 73003 TECHNIQUE: CT scan of the abdomen and pelvis performed from the lung bases through the lesser trochanter following the administration of 100 mL Isovue 300 IV contrast. DLP: 530 mGy/cm. The study was performed with radiation dose optimization per ACR practice guidelines and senior nurse manager's recommendations which includes: automated exposure control, adjustment [...] including radiation treatment. Name: TIARA GLASGOW Phys: GILMER Gallegos DickDavid Galaviz [address] [facility] : 1955 Age: 64 Sex: [place], [place] Loc: T.ERS Exam Date: 01/01/2020 Status: REG ER PH: FAX: PAGE 1Signed Report (CONTINUED) Patient Name: TIARA GLASGOW Unit No:[id number] EXAMS: CPT: [id number] CTABD PELVIS W/CONT 18423 <Continued> ElectronicallySigned by Curry Jessica MD on 01/01/2020 at 2258 Reported and signed by: Curry Jessica MD CC: Technologist: Huong Galeas CTDI: 10 DLP: 530 Trscr Dt/Tm: 01/01/2020 (2257) by:Caryl Orig Print D/T: S: 01/01/2020 (7064) BATCH NO: N/A Name: TIARA GLASGOW [place] Phys: GILMER Rosy DickDavid Galaviz [address] [facility] : 1955 Age: 64 Sex: [place] Loc: T.ERS Exam Date: 01/01/2020 Status:REG ER PH: FAX: PAGE 2 Signed ReportCOMPREHENSIVE METABOLIC [id number] 22:53:00 Test Item Value Reference Range Interpretation [...] PHOSPHATASE (test code = UNITS/L 38-126 ALKP) [id number] 22:53:00 Test Item Value Reference Range Interpretation Comments LIPASE (test code = LIP) UNITS/L 22-151 [id number] 22:53:00 Test Item Value Reference Range Interpretation Comments MAGNESIUM (test code = MAG) mg/dL 1.7-2.8 [id number] 22:53:00 Test Item Value Reference Range Interpretation Comments ALCOHOL (test code = ALC) mg/dl 0.0-80.0 CBC W/AUTO [id number] 22:52:00 Test Item Value Reference Range Interpretation [...] BA#) 0.11 K/mm3 0.0-0.1 H TROPONIN I [id number] 22:44:00 Test Item Value Reference Range Interpretation [...]
--- NOTE | 2020-11-10 21:18 | RAD REPORT ---
EXAM DESCRIPTION: RAD - Abdomen 1 View (KUB) - 11/10/2020 8:58 pm CLINICAL HISTORY: Abdomen pain. FINDINGS: Several loops of small bowel are mildly dilated. Air is present throughout colon. These findings may indicate an ileus or early partial small bowel obstruction.
[2020-11-10] MEDS ORDERED: MORPHINE 4 MG/ML SYR ONE (22:31)
[2020-11-10] MEDS ORDERED: ONDANSETRON 4 MG/2 ML VIAL ONE ×2 (22:31→23:23)
[2020-11-10] MEDS ORDERED: NA CHLORIDE 0.9% 1,000 ML ONE ×2 (22:31→23:24)
[2020-11-10 22:57] LABS: Albumin 3.3 g/dL (3.4-5.0); Bilirubin Direct 0.1 mg/dL (0-0.2); Bilirubin Total 0.4 mg/dL (0.2-1.0); Protein, Total 6.6 g/dL (6.4-8.2)
[2020-11-10 23:19] LABS: Absolute Lymphocytes (CBC) 0.8 K/uL (0.7-4.9); Basophils % 0.3 % (0-1.3); Hematocrit 45.7 % (39.6-49.0); Lymphocytes % 15.1 % (15.3-44.8); MPV 8.4 fL (7.6-11.3); RBC Red Blood Cell Count 5.05 M/uL (4.33-5.43)
[2020-11-10] MEDS ORDERED: MORPHINE 2 MG/ML SYR ONE (23:23)
[2020-11-10] MEDS ORDERED: TETANUS & DIPHTHERIA TOX,ADULT 0.5 ML VIAL ONE (23:24)
--- NOTE | 2020-11-11 01:30 | ER ---
Nurse's Notes [facility] Name: Rolando De León Age: 64 yrs Sex: Male : 1955 Arrival Date: 11/10/2020 Time: 20:08 Bed 14 Private MD: Diagnosis: Partial Small Bowel Obstruction;COVID Presentation: 11/10 20:18 Chief complaint: Patient states: Weakness, fatigue and unable to stay awake x 3 days. kg Pt stated, "I feel similar to when I have a bowel blockage and I've had one last week that Nenita just been treating at home.". Coronavirus screen: Client denies travel out of the [place] in the last 14 days. At this time, unable to obtain information related to travel outside the [place] Client presents with at least one sign or symptom that may indicate coronavirus-19. Standard/surgical mask placed on the client. Provider contacted for isolation considerations. Ebola Screen: Patient negative for fever greater than or equal to 101.5 degrees Fahrenheit, and additional compatible Ebola Virus Disease symptoms Patient denies exposure to infectious person. Patient denies travel to an Ebola-affected area in the 21 days before illness onset. Initial Sepsis Screen: Does the patient meet any 2 criteria? No. Patient's initial sepsis screen is negative. Does the patient have a suspected source of infection? No. Patient's initial sepsis screen is negative. Risk Assessment: Do you want to hurt yourself or someone else? Patient reports no desire to harm self or others. Onset of symptoms was November 07, 2020. 20:18 Method Of Arrival: Ambulatory kg 20:18 Acuity: SOLANGE 4 kg Triage Assessment: 20:20 General: Appears in no apparent distress. Behavior is calm, cooperative, appropriate kg for age, quiet. Pain: Complains of pain in abdomen. Historical: - Allergies: 20:20 No Known Allergies; kg - Home Meds: 20:20 methimazole 10 mg Oral tab 1 tab once daily [Active]; kg - PMHx: 20:20 bowel obstruction; Cancer; Thyroid problem; A-fib; kg - PSHx: 20:20 Colostomy; eye sx; kg - Immunization history:: Adult Immunizations not up to date, Client reports receiving the 1st dose of the Covid vaccine, November 01, 2020 [employer] - Social history:: Smoking status: Patient reports the use of cigarette tobacco products, smokes one pack cigarettes per day. Patient uses street drugs, Methamphetamine (Meth). Screenin:22 Abuse screen: Denies threats or abuse. Denies injuries from another. Nutritional kg screening: No deficits noted. Tuberculosis screening: No symptoms or risk factors identified. Fall Risk None identified. Assessment: 22:04 General: Appears in no apparent distress. Behavior is calm, cooperative. Pain: ms4 Complains of pain in abdomen. Neuro: No deficits noted. Cardiovascular: No deficits noted. Respiratory: No deficits noted. GI: Abdomen is flat, Bowel sounds present X 4 quads. Abdomen is tender to palpation X 4 quads. Reports lower abdominal pain, nausea, vomiting. Vital Signs: 20:18 BP 125 / 75; Pulse 96; Resp 20; Temp 98.4(O); Pulse Ox 96% on R/A; Weight 56.25 kg (R); kg Height 5 ft. 11 in. (180.34 cm) (R); Pain 4/10; 11/11 02:23 BP 116 / 54; Pulse 58; Resp 18; Pulse Ox 95% on R/A; em 03:25 BP 146 / 63; Pulse 52; Resp 16; Temp 98.3; Pulse Ox 98% ; Pain 0/10; ms4 11/10 20:18 Body Mass Index 17.29 (56.25 kg, 180.34 cm) kg ED Course: 11/10 20:08 Patient arrived in ED. es 20:20 Triage completed. kg 20:20 Arm band placed on right wrist. kg 20:22 Patient has correct armband on for positive identification. kg 20:22 No provider procedures requiring assistance completed. kg 20:57 XRAY KUB In Process Unspecified. EDMS 21:27 Aydee Murphy, JULIANNE is Primary Nurse. ms4 21:41 Zhang Jimenez MD is Attending Physician. mh7 22:05 Inserted saline lock: 20 gauge in right antecubital area, using aseptic technique. ms4 Blood collected. 22:57 CT Abd/Pelvis - IV Contrast Only Sent. ms4 23:33 CT Abd/Pelvis - IV Contrast Only In Process Unspecified. EDMS 11/11 01:29 Curry Naranjo MD is Hospitalizing Provider. 7 01:29 Hospitalizing Provider role handed off by Curry Naranjo MD 7 01:29 Hamilton Naranjo MD is Hospitalizing Provider. [facility] 03:50 COVID-19 : Document "Date of Symptom Onset" if Symptomatic. Sent. [facility] 11/12 07:45 Primary Nurse role handed off by Aydee Murphy, JULIANNE 07:45 Gal Hernandez, RN is Primary Nurse. bp 13:53 IV discontinued, No redness/swelling at site. Pressure dressing applied. mb4 Administered Medications: 11/10 22:06 Drug: NS 0.9% 1000 ml Route: IV; Rate: 1000 ml; Site: right antecubital; ms4 22:57 Follow up: Response: No adverse reaction; IV Status: Completed infusion; IV Intake: ms4 1000ml 22:08 Drug: morphine 4 mg Route: IVP; Site: right antecubital; ms4 22:57 Follow up: Response: No adverse reaction ms4 22:08 Drug: Zofran (Ondansetron) 4 mg Route: IVP; Site: right antecubital; ms4 22:56 Follow up: Response: No adverse reaction ms4 11/11 01:26 Drug: Reglan (metoCLOPramide) 10 mg Route: IVP; Site: right antecubital; ms4 03:49 Follow up: Response: No adverse reaction bs2 Intake: 11/10 22:57 IV: 1000ml; Total: 1000ml. ms4 Outcome: 11/11 01:29 Decision to Hospitalize by Provider. [facility] 11/12 14:40 Patient left the ED. iw Signatures: Dispatcher [employer] Ekaterina Gomez Edgar, RN Britt Howard RN RN Gal Hernandez RN RN Megan Gordillo 4 Zhang Jimenez MD MD 7 Maegan Bonds RN RN kg Sirena Montoya RN RN bs2 Aydee Murphy, JULIANNE RN ms4 Corrections: (The following items were deleted from the chart) 11/10 20:27 20:18 Chief complaint: Patient states: Weakness, fatigue and unable to stay awake x 3 kg days. kg
--- NOTE | 2020-11-11 01:30 | EDPHYS ---
Physician Documentation [facility] Name: Rolando De León Age: 64 yrs Sex: Male : 1955 Arrival Date: 11/10/2020 Time: 20:08 Bed 14 Private MD: ED Physician Zhang Jimenez HPI: 11/10 22:10 This 64 yrs old Male presents to ER via Ambulatory with complaints of Had mh7 blockage left weak. 22:10 The patient presents with abdominal pain in the epigastric area. Onset: The mh7 symptoms/episode began/occurred 3 day(s) ago. The symptoms do not radiate. Associated signs and symptoms: Pertinent positives: nausea and vomiting, diarrhea, Generalized weakness/fatigue, Pertinent negatives: anorexia, blood in stools, chest pain, constipation, dysuria, fever, headache, hematuria, palpitations, shortness of breath, testicular pain, vomiting blood. The symptoms are described as intermittent, vague, waxing/waning. Modifying factors: The symptoms are alleviated by nothing, the symptoms are aggravated by nothing. Severity of pain: At its worst the pain was moderate 3 day(s) ago, in the emergency department the pain has improved moderately. The patient has experienced similar episodes in the past, several times. Historical: - Allergies: 20:20 No Known Allergies; kg - Home Meds: 20:20 methimazole 10 mg Oral tab 1 tab once daily [Active]; kg - PMHx: 20:20 bowel obstruction; Cancer; Thyroid problem; A-fib; kg - PSHx: 20:20 Colostomy; eye sx; kg - Immunization history:: Adult Immunizations not up to date, Client reports receiving the 1st dose of the Covid vaccine, November 01, 2020 [employer]. - Social history:: Smoking status: Patient reports the use of cigarette tobacco products, smokes one pack cigarettes per day. Patient uses street drugs, Methamphetamine (Meth). ROS: 22:10 Constitutional: Negative for fever, chills, and weight loss, Eyes: Negative for injury, mh7 pain, redness, and discharge, ENT: Negative for injury, pain, and discharge, Neck: Negative for injury, pain, and swelling, Cardiovascular: Negative for chest pain, palpitations, and edema, Back: Negative for injury and pain, : Negative for injury, bleeding, discharge, and swelling, MS/Extremity: Negative for injury and deformity, Skin: Negative for injury, rash, and discoloration, Neuro: Negative for headache, weakness, numbness, tingling, and seizure, Psych: Negative for depression, anxiety, suicide ideation, homicidal ideation, and hallucinations, Allergy/Immunology: Negative for hives, rash, and allergies, Endocrine: Negative for neck swelling, polydipsia, polyuria, polyphagia, and marked weight changes, Hematologic/Lymphatic: Negative for swollen nodes, abnormal bleeding, and unusual bruising. 22:10 Respiratory: Positive for cough, with no reported sputum. Exam: 22:10 Constitutional: This is a well developed, well nourished patient who is awake, alert, mh7 and in no acute distress. Head/Face: Normocephalic, atraumatic. Eyes: Pupils equal round and reactive to light, extra-ocular motions intact. Lids and lashes normal. Conjunctiva and sclera are non-icteric and not injected. Cornea within normal limits. Periorbital areas with no swelling, redness, or edema. Neck: Trachea midline, no thyromegaly or masses palpated, and no cervical lymphadenopathy. Supple, full range of motion without nuchal rigidity, or vertebral point tenderness. No Meningismus. Chest/axilla: Normal chest wall appearance and motion. Nontender with no deformity. No lesions are appreciated. Cardiovascular: Regular rate and rhythm with a normal S1 and S2. No gallops, murmurs, or rubs. Normal PMI, no JVD. No pulse deficits. Respiratory: Lungs have equal breath sounds bilaterally, clear to auscultation and percussion. No rales, rhonchi or wheezes noted. No increased work of breathing, no retractions or nasal flaring. 22:10 Back: No spinal tenderness. No costovertebral tenderness. Full range of motion. Skin: Warm, dry with normal turgor. Normal color with no rashes, no lesions, and no evidence of cellulitis. MS/ Extremity: Pulses equal, no cyanosis. Neurovascular intact. Full, normal range of motion. Neuro: Awake and alert, GCS 15, oriented to person, place, time, and situation. Cranial nerves II-XII grossly intact. Motor strength 5/5 in all extremities. Sensory grossly intact. Cerebellar exam normal. Normal gait. Psych: Awake, alert, with orientation to person, place and time. Behavior, mood, and affect are within normal limits. 22:10 Abdomen/GI: Inspection: Colostomy bag intact, Bowel sounds: normal, in all quadrants, Palpation: mild abdominal tenderness, in the epigastric area, mass, is not appreciated, rebound tenderness, is not appreciated, voluntary guarding, is not appreciated, involuntary guarding, is not appreciated, no appreciated organomegaly, Rectal exam: the exam is deferred, because of patient request, Indicators: McBurney's point is not tender, Rene's sign is negative, Rovsing's sign is negative, Obturator sign is negative, Psoas sign is negative, Liver: no appreciated palpable abnormalities, Hernia: not appreciated. Vital Signs: 20:18 BP 125 / 75; Pulse 96; Resp 20; Temp 98.4(O); Pulse Ox 96% on R/A; Weight 56.25 kg (R); kg Height 5 ft. 11 in. (180.34 cm) (R); Pain 4/10; 11/11 02:23 BP 116 / 54; Pulse 58; Resp 18; Pulse Ox 95% on R/A; em 03:25 BP 146 / 63; Pulse 52; Resp 16; Temp 98.3; Pulse Ox 98% ; Pain 0/10; ms4 11/10 20:18 Body Mass Index 17.29 (56.25 kg, 180.34 cm) kg MDM: 01:28 Differential diagnosis: bowel obstruction, cholecystitis, Cholelithiasis, 7 diverticulitis, gastritis, gastroesophageal reflux disease, non-specific abd pain, pancreatitis, Peptic Ulcer Disease, urinary tract infection. Data reviewed: vital signs, nurses notes, old medical records, lab test result(s), CBC, electrolytes, radiologic studies, CT scan, plain films. Data interpreted: Pulse oximetry: on room air is 96 %. Interpretation: normal. Counseling: I had a detailed discussion with the patient and/or guardian regarding: the historical points, exam findings, and any diagnostic results supporting the discharge/admit diagnosis, lab results, radiology results, the need for further work-up and treatment in the hospital. Response to treatment: the patient's symptoms have mildly improved after treatment. 01:29 Patient medically screened. 7 11/10 20:24 Order name: COVID-19 : Document "Date of Symptom Onset" if Symptomatic. kg 11/10 21:42 Order name: SARS-COV-2 RT PCR; Complete Time: 21:49 EDMS 11/10 21:56 Order name: Basic Metabolic Panel; Complete Time: 23:21 [facility] 11/10 21:56 Order name: CBC with Diff; Complete Time: 23:28 [facility] 11/10 21:56 Order name: Hepatic Function; Complete Time: 23:21 [facility] 11/10 20:26 Order name: XRAY KUB; Complete Time: 21:37 kg 11/10 21:56 Order name: Lipase; Complete Time: 23:21 [facility] 11/10 22:00 Order name: CT Abd/Pelvis - IV Contrast Only [facility] 11/11 06:08 Order name: CBC with Automated Diff [facility] 11/11 07:25 Order name: Comprehensive Metabolic Panel [facility] 11/11 13:02 Order name: RAD EDMS 11/12 05:59 Order name: CBC with Automated Diff [facility] 11/12 09:36 Order name: Comprehensive Metabolic Panel [facility] 11/10 21:56 Order name: IV Saline Lock; Complete Time: 22:06 [facility] 11/10 21:56 Order name: Labs collected and sent; Complete Time: 22:06 [facility] 11/10 21:59 Order name: EKG - Nurse/Tech; Complete Time: 22:23 [facility] Administered Medications: 11/10 22:06 Drug: NS 0.9% 1000 ml Route: IV; Rate: 1000 ml; Site: right antecubital; ms4 22:57 Follow up: Response: No adverse reaction; IV Status: Completed infusion; IV Intake: ms4 1000ml 22:08 Drug: morphine 4 mg Route: IVP; Site: right antecubital; ms4 22:57 Follow up: Response: No adverse reaction ms4 22:08 Drug: Zofran (Ondansetron) 4 mg Route: IVP; Site: right antecubital; ms4 22:56 Follow up: Response: No adverse reaction [facility] 11/11 01:26 Drug: Reglan (metoCLOPramide) 10 mg Route: IVP; Site: right antecubital; ms4 03:49 Follow up: Response: No adverse reaction bs2 Disposition Summary: 11/11/20 01:29 Hospitalization Ordered Hospitalization Status: Inpatient Admission mh7 Provider: Hamilton Naranjo Condition: Stable [facility] Problem: an acute exacerbation 7 Symptoms: have improved 7 Bed/Room Type: Standard [facility] Location: [facility] ER HOLD(11/11/20 02:05) cg Room Assignment: ERHOLD-(11/11/20 02:05) cg Diagnosis - Partial Small Bowel Obstruction 7 - COVID 7 Forms: - Medication Reconciliation Form 7 - SBAR form [facility] Signatures: Dispatcher [employer] EDGA Atul Jones PA PA Bay Lyons, TECHNICAL BUYER-C TECHNICAL BUYER-Cla1 Aline Chen, RN RN cg Zhang Jimenez MD MD mh7 Maegan Bonds RN RN kg Aydee Murphy RN RN ms4 Sirena Montoya RN bs2 Corrections: (The following items were deleted from the chart) 11/10 20:39 20:24 CORONAVIRUS ordered. EDGA EDGA 11/11 02:05 01:29 Telemetry/MedSurg (Inpatient) [facility] 02:05 01:29 [facility]
[2020-11-11] MEDS ORDERED: NA CHLORIDE 0.9% 50 ML ONE (01:48)
[2020-11-11] MEDS ORDERED: METOCLOPRAMIDE 10 MG/2mL INJ ONE (01:48)
--- NOTE | 2020-11-11 02:34 | P.HP ---
Certification for Inpatient Patient admitted to: Inpatient With expected LOS: >2 Midnights Patient will require the following post-hospital care: None Practitioner: I am a practitioner with admitting privileges, knowledge of patient current condition, hospital course, and medical plan of care. Services: Services provided to patient in accordance with Admission requirements found in Title 42 Section 412.3 of the Code of Federal Regulations <Bay Herring - Last Filed: 11/11/20 02:31> Patient History Date of Service: 11/11/20 Reason for admission: Partial small obstruction History of Present Illness: 64-year-old male with history of colorectal cancer with ostomy, atrial fibrillation presents emergency department for abdominal pain, vomiting. Patient reports has been having vomiting over the course of the last 2 days, has not vomited today. Patient with history of bowel obstructions in the past. Patient was evaluated in the emergency department labs are significant for platelets 130 BUN 20 GFR 67 patient tested positive for Covid incidentally. CT demonstrates partial/early small bowel obstruction. Patient's ostomy is draining well, still nauseous at this time ED provider wishes to admit for further evaluation and management. - Past Medical/Surgical History Diabetic: No -: thyroid disease -: colon cancer -: Small-bowel obstruction x8 -: A. 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 - Family History Father -: Heart disease Sister -: Heart disease Brother -: Heart disease, Hypertension - Social History Alcohol use: No CD- Drugs: Yes Caffeine use: Yes Place of Residence: Home <Bay Herring - Last Filed: 11/11/20 02:31> Date of Service: 11/11/20 <Hamilton Naranjo - Last Filed: 11/11/20 11:15> Allergies No Known Allergies Allergy (Verified 06/16/20 00:25) Home Medications: methIMAzole [Tapazole*] 20 mg PO DAILY 08/25/20 Polyethylene Glycol 3350 [Miralax] 17 gm PO DAILY #30 powd.pack 08/26/20 Senosides [Senokot] 2 tab PO BID #120 tab 08/26/20 Review of Systems 10-point ROS is otherwise unremarkable Gastrointestinal: Nausea, Vomiting, Abdominal Pain <Bay Herring - Last Filed: 11/11/20 02:31> Physical Examination - Physical Exam General: Alert, In no apparent distress HEENT: Atraumatic, PERRLA, Mucous membr. moist/pink, EOMI, Sclerae nonicteric Neck: Supple, 2+ carotid pulse no bruit, No LAD, Without JVD or thyroid abnormality Respiratory: Clear to auscultation bilaterally, Normal air movement Cardiovascular: Regular rate/rhythm, Normal S1 S2 Gastrointestinal: Normal bowel sounds, Hypoactive, Soft and benign, Other (Ostomy appliance intact) Musculoskeletal: No tenderness Integumentary: No rashes Neurological: Normal speech, Normal strength at 5/5 x4 extr, Normal tone, Normal affect - Studies Laboratory Data (last 24 hrs) 11/10/20 22:00: WBC 5.40, Hgb 15.7, Hct 45.7, Plt Count 130 L 11/10/20 22:00: Sodium 136, Potassium 4.0, BUN 20 H, Creatinine 1.11, Glucose 86, Total Bilirubin 0.4, AST 20, ALT 23, Alkaline Phosphatase 67, Lipase 184 <Bay Herring - Last Filed: 11/11/20 02:31> - Studies Laboratory Data (last 24 hrs) 11/10/20 22:00: WBC 5.40, Hgb 15.7, Hct 45.7, Plt Count 130 L 11/10/20 22:00: Sodium 136, Potassium 4.0, BUN 20 H, Creatinine 1.11, Glucose 86, Total Bilirubin 0.4, AST 20, ALT 23, Alkaline Phosphatase 67, Lipase 184 <Hamilton Naranjo - Last Filed: 11/11/20 11:15> Assessment and Plan - Plan Assessment: Partial small bowel obstruction with history of colorectal cancer status post ostomy with multiple previous bowel obstructions Atrial fibrillation not on anticoagulation Plan: Partial small bowel obstruction with history of colorectal cancer status post ostomy with multiple previous bowel obstructions: N.p.o., IVF, general surgery consult. Patient with multiple obstructions in the past, has not frequently required surgery, doubt surgical intervention will be required at this time, patient currently without nausea or vomiting will hold off on NGT insertion at this time. Appreciate further input from general surgery. Atrial fibrillation not on anticoagulation: Continue to monitor on telemetry, no intervention needed at this time. Stable. DVT PPX: SCD Code status: Full Discharge Plan: Home Plan to discharge in: 48 Hours - Advance Directives Does patient have a Living Will: No Does patient have a Durable POA for Healthcare: No - Code Status/Comfort Care Code Status Assessed: Yes (Full code) Critical Care: No Time Spent Managing Pts Care (In Minutes): 55 <Bay Herring - Last Filed: 11/11/20 02:31> - Plan Patient seen and evaluated this morning on rounds. Denies any nausea/vomiting. States pain has gotten better Still no gas or stool in the ostomy Abdomen not distended, not tender Continue n.p.o., IV fluids for now General surgery to evaluate this morning <Hamilton Naranjo - Last Filed: 11/11/20 11:15>
[2020-11-11] MEDS ORDERED: SODIUM CHLORIDE 0.9% 10ML INJ IV PRN (03:05)
[2020-11-11] MEDS ORDERED: MORPHINE 2 MG/ML SYR IV PRN (03:05)
[2020-11-11] MEDS: NA CHLORIDE 0.9% 1,000 ML IV SCH ×3 (03:05→23:05)
[2020-11-11] MEDS ORDERED: ONDANSETRON 4 MG/2 ML VIAL IV PRN (03:05)
[2020-11-11] MEDS ORDERED: NA CHLORIDE 0.9% 1,000 ML ONE ×3 (03:34→20:03)
[2020-11-11 05:59] LABS: Absolute Lymphocytes (CBC) 0.9 K/uL (0.7-4.9); Basophils % 0.4 % (0-1.3); Hematocrit 40.3 % (39.6-49.0); MPV 8.1 fL (7.6-11.3); RBC Red Blood Cell Count 4.46 M/uL (4.33-5.43)
[2020-11-11 07:25] LABS: Albumin 2.8 g/dL (3.4-5.0); Bilirubin Total 0.3 mg/dL (0.2-1.0); Potassium 4.2 mmol/L (3.5-5.1); Protein, Total 5.7 g/dL (6.4-8.2)
[2020-11-11] MEDS: PANTOPRAZOLE 40 MG INJ IVP SCH (09:00)
[2020-11-11] MEDS: METRONIDAZOLE 500mg IVPB 500 MG/100 ML BAG IV SCH ×2 (10:00→16:59)
[2020-11-11] MEDS ORDERED: PANTOPRAZOLE 40 MG INJ ONE (10:30)
[2020-11-11] MEDS ORDERED: METRONIDAZOLE 500mg IVPB 500 MG/100 ML BAG IV ONE ×3 (10:30→20:03)
[2020-11-11] MEDS ORDERED: CIPROFLOXACIN 400mg IV 400 MG/200 ML BAG IV ONE ×2 (10:30→20:03)
[2020-11-11] MEDS: CIPROFLOXACIN 400mg IV 400 MG/200 ML BAG IV SCH ×2 (11:00→21:00)
--- NOTE | 2020-11-11 13:01 | RAD REPORT ---
EXAM DESCRIPTION: Kimberly Single View11/11/2020 12:31 pm CLINICAL HISTORY: cough COMPARISON: August 2020 FINDINGS: The lungs appear clear of acute infiltrate. The heart is normal size IMPRESSION: No acute abnormalities displayed
--- NOTE | 2020-11-11 14:22 | CON ---
Date of Consultation: 11/11/2020 Reason For Consultation: Small bowel obstruction. History Of Present Illness: The patient is a 64-year-old gentleman with a history of rectal cancer w ith a colostomy and had an ileostomy, which was reversed a long time ago. From review of the [facility] chart, it appeared the patient probably had an abdominoperineal resection. However, he has had m ultiple episodes of partial small bowel obstructions in the past and most of the time, they have reso lved with conservative management. At this time, he complained of nausea and vomiting, but he still had stool and gas coming out of his ostomy, but he felt weak for the last 3 days and was unable to ho ld anything down. He came to the emergency room. Currently, he is without pain. No nausea. Ostomy was working earlier today. It has been recently emptied so there is no stool or gas in there curren tly. No sore throat, runny nose, cough, headaches, or dizziness. No chest pain and no fever or chil ls. He did test positive for COVID, but apparently, he is asymptomatic at this time. Review of Systems: Otherwise unremarkable. Past Medical History: Significant for thyroid disease, rectal cancer, history of small bowel obstruc tion, atrial fibrillation. Past Surgical History: Colon resection with colostomy and ileostomy, which was reversed already, leg surgery. Allergies: NO ALLERGIES. Social History: The patient does not smoke or drink alcohol. Family History: Significant for heart disease and hypertension. Physical Examination: Vital Signs: Stable. He is afebrile. General: He is awake, alert, and oriented x3. Head and Neck: Cranial nerves 2 through 12 grossly within normal limits. No neck masses. No JVD. Throat clear. Neck is supple. Chest: Clear. Abdomen: Soft, nondistended, and nontender. Ostomy is pink. There is no stool or air at this time as this was recently changed. There is no evidence of peritonitis. Extremities: Adequate perfusion. Nontender. Neuro: Nonfocal. Diagnostic Data: CT of the abdomen and pelvis reviewed and essentially it shows postsurgical changes in the region of the rectosigmoid junction with follow left hemicolectomy, soft tissue thickening perez rrounding the rectosigmoid junction may be due to scarring. Left lower quadrant ostomy present. Liq uid feces within the cecum and ascending colon, mildly distended and borderline dilated fluid-filled small bowel loops in the pelvis and the right damian abdomen. Findings may be due to partial small bow el obstruction and/or enteritis. There are several small nodular opacities in the lingula in the lef t lower lobe, which were not definitely identified on the prior study. Findings may be due to an inf ectious and/or neoplastic etiology. The patient had an abdominal x-ray done this morning, which show ed several loops of small bowel that are mildly dilated. Air is present throughout the colon and the se findings may indicate an ileus or early partial small bowel obstruction. Assessment And Plan: Ileus versus small bowel obstruction versus gastroenteritis. Clinically, the p atient is essentially asymptomatic at this time. He is hungry. He wants to have some liquids. Thos e liver nodules need to be followed up as an outpatient with a cancer doctor and may need a PET scan. There is no need for any acute surgical intervention at this point. We will start him on empiric a ntibiotics, Cipro, and Flagyl and will let him have sips of clear liquid as tolerated, can be advance d and will follow this patient while in the hospital. /MODL Voice ID: [id number] Report ID: [id number]
[2020-11-12] MEDS: METRONIDAZOLE 500mg IVPB 500 MG/100 ML BAG IV SCH ×2 (00:57→09:00)
[2020-11-12 03:37] VITALS: BMI 17.3
[2020-11-12 05:47] LABS: Absolute Lymphocytes (CBC) 0.8 K/uL (0.7-4.9); Basophils % 0.6 % (0-1.3); Hematocrit 42.5 % (39.6-49.0); Lymphocytes % 21.6 % (15.3-44.8); RBC Red Blood Cell Count 4.73 M/uL (4.33-5.43)
[2020-11-12] MEDS ORDERED: NA CHLORIDE 0.9% 1,000 ML ONE (08:54)
[2020-11-12] MEDS ORDERED: PANTOPRAZOLE 40 MG INJ ONE (08:54)
[2020-11-12] MEDS ORDERED: METRONIDAZOLE 500mg IVPB 500 MG/100 ML BAG IV ONE (08:55)
[2020-11-12] MEDS ORDERED: CIPROFLOXACIN 400mg IV 400 MG/200 ML BAG IV ONE (08:55)
[2020-11-12] MEDS: PANTOPRAZOLE 40 MG INJ IVP SCH (09:00)
[2020-11-12] MEDS: CIPROFLOXACIN 400mg IV 400 MG/200 ML BAG IV SCH (09:00)
[2020-11-12] MEDS: NA CHLORIDE 0.9% 1,000 ML IV SCH (09:05)
[2020-11-12 09:36] LABS: Albumin 2.6 g/dL (3.4-5.0); Bilirubin Total 0.2 mg/dL (0.2-1.0); Potassium 4.5 mmol/L (3.5-5.1); Protein, Total 5.3 g/dL (6.4-8.2)
--- NOTE | 2020-11-12 13:33 | P.DS ---
Admission Date: 11/11/20 Discharge Date: 11/12/20 Disposition: ROUTINE DISCHARGE Reason for Admission: Partial small bowel obstruction Consultations: General Surgery - Dr. Zuleta Procedures: KUB x-ray (11/10): Several loops of small bowel are mildly dilated. Air is present throughout colon. These findings may indicate an ileus or early partial small bowel obstruction. CT Abd/pelvis (11/10): 1. There are postsurgical changes in the region of the rectosigmoid junction with probable left hemicolectomy. There is soft tissue thickening surrounding the rectosigmoid junction which may be due to scarring. There is a left lower quadrant sostomy likely reflecting a colostomy. 2. There is liquid feces within the cecum and ascending colon and there are mildly distended and borderline dilated fluid filled small bowel loops in the pelvis right hemiabdomen. Findings may be due to a partial small bowel obstruction and/or enteritis. 3. There are several small nodular opacities in the lingula and the left lower lobe which were not definitely identified ont he prior study. Findings may be due to an infectiosu and/or neoplastic etiology. CXR (11/11): The lungs appear clear of acute infiltrate. The heart is normal size IMPRESSION: No acute abnormalities displayed Problem List Partial small bowel obstruction vs ileus history of colorectal cancer status post colectomy / ostomy with multiple previous bowel obstructions Atrial fibrillation not on anticoagulation Brief History of Present Illness: 64-year-old male with history of colorectal cancer with ostomy, atrial fibrillation presents emergency department for abdominal pain, vomiting. Patient reports has been having vomiting over the course of the last 2 days, has not vomited today. Patient with history of bowel obstructions in the past. Patient was evaluated in the emergency department labs are significant for platelets 130 BUN 20 GFR 67 patient tested positive for Covid incidentally. CT demonstrates partial/early small bowel obstruction. Patient's ostomy is draining well, still nauseous at this time ED provider wishes to admit for fu rther evaluation and management. Hospital Course: Patient was managed medically with bowel rest, IVF, and empiric antibiotics. General surgery was consulted and recommended continued medical management. Patient had quick resolution of his symptoms and was tolerating soft diet, passing flatus/stool into ostomy. Discharged home with 1 week of antibiotics. He was found to be COVID-19+ with a clear chest x-ray and mild symptoms of fatigue and cough. CT scan revealed small nodular opacities that could represent infectious etiology vs metastasis. Patient was discharged home with prescription for decadron. Advised to have f/u CT scan in the near future. Patient reported he was broke due to losing his job due to COVID. Stated he may not waste picker the medications. Vital Signs/Physical Exam: Temp Pulse Resp BP Pulse Ox 98.4 F 43 L 16 124/62 97 11/12/20 04:00 11/12/20 04:00 11/12/20 04:00 11/12/20 04:00 11/12/20 04:00 General: Alert, In no apparent distress, Oriented x3 HEENT: Mucous membr. moist/pink, Sclerae nonicteric Respiratory: Clear to auscultation bilaterally, Normal air movement Cardiovascular: No edema, Regular rate/rhythm Gastrointestinal: Soft and benign, Non-distended, No tenderness, Other (+ostomy with gas/stool) Musculoskeletal: No tenderness Integumentary: No rashes Neurological: Normal speech, Normal affect Laboratory Data at Discharge: WBC 3.80 K/uL (4.3-10.9) L 11/12/20 05:18 Hgb 14.7 g/dL (13.6-17.9) 11/12/20 05:18 Hct 42.5 % (39.6-49.0) 11/12/20 05:18 Plt Count 107 K/uL (152-406) L 11/12/20 05:18 Sodium 141 mmol/L (136-145) 11/12/20 05:18 Potassium 4.5 mmol/L (3.5-5.1) 11/12/20 05:18 BUN 11 mg/dL (7-18) 11/12/20 05:18 Creatinine 0.87 mg/dL (0.55-1.3) 11/12/20 05:18 Glucose 85 mg/dL (74-106) 11/12/20 05:18 Total Bilirubin 0.2 mg/dL (0.2-1.0) 11/12/20 05:18 AST 16 U/L (15-37) 11/12/20 05:18 ALT 15 U/L (12-78) 11/12/20 05:18 Alkaline Phosphatase 54 U/L (45-117) 11/12/20 05:18 Lipase 184 U/L (73-393) 11/10/20 22:00 Home Medications: Ciprofloxacin HCl [Cipro 500 MG Tablet] 500 mg PO BID 7 Days #14 tab 11/12/20 dexAMETHasone [Decadron] 4 mg PO DAILY 7 Days #7 tab 11/12/20 metroNIDAZOLE [Flagyl] 500 mg PO Q8H 7 Days #21 tablet 11/12/20 New Medications: Ciprofloxacin HCl [Cipro 500 MG Tablet] 500 mg PO BID 7 Days #14 tab dexAMETHasone [Decadron] 4 mg PO DAILY 7 Days #7 tab metroNIDAZOLE [Flagyl] 500 mg PO Q8H 7 Days #21 tablet Physician Discharge Instructions: You were found to have a partial bowel obstruction vs ileus that caused your symptoms. You were managed medically with bowel rest, IV fluids, and antibiotics as a precaution. You are discharged to continue antibiotics. Recommend follow up with your PCP in 3-5 days. Recommend following up with your oncologist as well. There were some small nodular appearing opacities that should have a repeat scan in the near future. There is the possibility of cancer given your history. Diet: Regular Activity: Ad myke Followup: NONE,NONE [Primary Care Provider] - Time spent managing pt's care (in minutes): 45
[2020-11-12 14:50] VITALS: BP 122/62; TEMP 98.5
[2020-11-12 14:57] VITALS: O2SAT 98
--- NOTE | 2020-11-13 11:45 | RAD REPORT ---
EXAM DESCRIPTION: CT - Abdomen Pelvis W Contrast - 11/11/2020 6:37 am CLINICAL HISTORY: 64 years Male ABD PAIN TECHNIQUE: Axial CT imaging of the abdomen and pelvis was performed following the administration of intravenous contrast.. Oral contrast was not administered. Sagittal and coronal reconstructed image s were then performed. The CT study is performed according to ALARA (as low as reasonably achievabl e) or ALARA/IMAGE GENTLY, with automatic adjustment of mA and/or kV according to patient size. Performed on: 11/10/2020 at 11:28 PM. COMPARISON: 08/24/2020 FINDINGS: Lung bases: There are several small nodular opacities in the lingula and left lower lobe w hich were not definitely identified on the prior study. There are no pleural effusions. The heart is normal in size. Liver: The liver is normal in size and configuration. No focal hepatic abnormalities are identified. Liver attenuation is within normal limits. The hepatic and portal veins are patent. Spleen: The spleen is normal is size, configuration and attenuation. Gallbladder and bile duct: The gallbladder is well distended and unremarkable. There is no biliary ductal dilatation. Pancreas: The pancreas is grossly normal in size and configuration. Adrenal Glands: The adrenal glands are normal in size and configuration. Kidneys: The left kidney is smaller in size than the right kidney. The appearance of the kidneys is s table when compared to the prior study. There appear to be renal cortical defects bilaterally likely due to scarring. There is a small exophytic cyst arising from the lateral cortex of the midpole of th e left kidney. There is stable mild fullness of the renal pelves bilaterally. There is no evidence of demi hydronephrosis. There is no evidence of nephrolithiasis. No definite solid or cystic renal mas s lesions are identified. Stomach: The stomach is grossly normal. There is no definite hiatal hernia. Bowel: There are postsurgical changes in the region of the rectosigmoid junction with probable left h emicolectomy. There is soft tissue thickening surrounding the rectosigmoid junction which may be due to scarring. There are postsurgical changes in the right hemiabdomen involving a small bowel loop. Th ere is a left lower quadrant ostomy likely representing a colostomy. There is liquid feces within the cecum and ascending colon and there are mildly distended and borderline dilated fluid filled small b owel loops in the pelvis right hemiabdomen. Findings may be due to a partial small bowel obstruction and/or enteritis. Appendix: The appendix is not well visualized on this examination there is no definite CT evidence to suggest acute appendicitis. Free air: There is no evidence of free air. Free fluid: There is no evidence of free fluid. Vasculature: The aorta is normal in caliber and contour. The inferior vena cava is grossly unremarkab le. There are mild atherosclerotic calcifications along the abdominal aorta. Lymphadenopathy: No pathologic lymphadenopathy is identified. Bladder: The bladder is well distended and smooth in contour. Reproductive: The prostate gland is grossly within normal limits. Bones: No acute osseous abnormalities are identified. There are mild to moderate degenerative changes of the spine and pelvis. Soft tissues: No acute soft tissue abnormalities are identified. IMPRESSION: 1. There are postsurgical changes in the region of the rectosigmoid junction with prob able left hemicolectomy. There is soft tissue thickening surrounding the rectosigmoid junction which may be due to scarring. There is a left lower quadrant ostomy likely reflecting a colostomy. 2. There is liquid feces within the cecum and ascending colon and there are mildly distended and trey rderline dilated fluid filled small bowel loops in the pelvis right hemiabdomen. Findings may be due to a partial small bowel obstruction and/or enteritis. 3. There are several small nodular opacities in the lingula and left lower lobe which were not defi nitely identified on the prior study. Findings may be due to an infectious and/or neoplastic etiology . Electronically signed by: Ofelia Sky DO 11/11/2020 12:26 AM CDT Due to temporary technical issues with the PACS/Fluency reporting system, reports are being signed by the in house radiologist without review as a courtesy to ensure prompt reporting. The interpreting r adiologist is fully responsible for the content of the report.
== END 2020-11-12 14:51 | disposition home or self-care (01) | DRG 388 ==
LOC: ER 20:04 → ERHOLD 11-11 02:00
PROVIDERS: ADMIT Hospitalist; ATTEND Hospitalist
DX: K56.609 Unspecified intestinal obstruction, unspecified as to partial versus complete obstruction (principal); U07.1 COVID-19; I48.91 Unspecified atrial fibrillation; F17.210 Nicotine dependence, cigarettes, uncomplicated; R91.8 Other nonspecific abnormal finding of lung field; Z85.038 Personal history of other malignant neoplasm of large intestine; Z93.3 Colostomy status
CPT/HCPCS: 36415; 71045; 74018; 74177; 80048; 80053; 80076; 83690; 85025; 90714; 93005; 96361; 96374; 96375; 99284; C9113; J0744; J2270; J2405; J2765; J7030; Q9967; U0003

== ENCOUNTER 2020-12-20 22:29 | Inpatient (IN) | payer OTHER, SELFPAY ==
[2020-12-20 22:54] LABS: Absolute Lymphocytes (CBC) 1.1 K/uL (0.7-4.9); Basophils % 0.5 % (0-1.3); Hematocrit 50.9 % (39.6-49.0); Lymphocytes % 10.5 % (15.3-44.8); MPV 7.9 fL (7.6-11.3); RBC Red Blood Cell Count 5.62 M/uL (4.33-5.43)
[2020-12-20 23:04] LABS: Albumin 4.2 g/dL (3.4-5.0); Bilirubin Direct 0.2 mg/dL (0-0.2); Bilirubin Total 0.7 mg/dL (0.2-1.0); Potassium 4.2 mmol/L (3.5-5.1); Protein, Total 7.9 g/dL (6.4-8.2)
[2020-12-20] MEDS ORDERED: PROMETHAZINE INJ 25 MG/ML AMP ONE ×2 (23:12→23:36)
[2020-12-20] MEDS ORDERED: NA CHLORIDE 0.9% 1,000 ML ONE (23:13)
[2020-12-21] MEDS ORDERED: MORPHINE 4 MG/ML SYR ONE (00:16)
[2020-12-21] MEDS ORDERED: METRONIDAZOLE 500mg IVPB 500 MG/100 ML BAG IV ONE (00:32)
[2020-12-21] MEDS ORDERED: CIPROFLOXACIN 400mg IV 400 MG/200 ML BAG IV ONE ×2 (00:32→02:24)
--- NOTE | 2020-12-21 00:34 | EDPHYS ---
Physician Documentation [facility] Name: Rolando De León Age: 65 yrs Sex: Male : 1955 Arrival Date: 12/20/2020 Time: 22:31 Bed 4 Private MD: ED Physician Fred Morales HPI: 12/20 22:37 This 65 yrs old Male presents to ER via EMS with complaints of Abdominal pain jr8 and vomiting. 22:37 Onset: The symptoms/episode began/occurred acutely, just prior to arrival. The symptoms jr8 do not radiate. Associated signs and symptoms: none. The symptoms are described as stabbing. Modifying factors: The symptoms are alleviated by nothing, the symptoms are aggravated by nothing. Severity of pain: At its worst the pain was moderate in the emergency department the pain is unchanged. The patient has experienced similar episodes in the past, a few times. The patient has not recently seen a physician. Patient stated that he has a history of bowel obstruction in the past after undergoing colectomy from a cancer. Patient now with ostomy. Stated that he occasionally gets obstructions and feel like he is having another one. Patient stated that he has had a lot of nausea with vomiting. Pain to the lower abdomen. Denies fevers. Historical: - Allergies: 22:34 No Known Allergies; jb4 - Home Meds: 22:34 methimazole 10 mg Oral tab 1 tab once daily [Active]; jb4 - PMHx: 22:34 a-fib; bowel obstruction; Cancer; Thyroid problem; jb4 - PSHx: 22:34 Colostomy; eye sx; jb4 - Immunization history:: Adult Immunizations up to date. ROS: 22:37 Eyes: Negative for injury, pain, redness, and discharge, ENT: Negative for injury, jr8 pain, and discharge, Neck: Negative for injury, pain, and swelling, Cardiovascular: Negative for chest pain, palpitations, and edema, Respiratory: Negative for shortness of breath, cough, wheezing, and pleuritic chest pain, Back: Negative for injury and pain, MS/Extremity: Negative for injury and deformity, Skin: Negative for injury, rash, and discoloration, Neuro: Negative for headache, weakness, numbness, tingling, and seizure. 22:37 Abdomen/GI: Positive for abdominal pain, nausea and vomiting, Negative for diarrhea, abdominal distension, hematemesis, black/tarry stool, rectal pain, rectal bleeding. Exam: 22:37 Constitutional: This is a well developed, well nourished patient who is awake, alert, jr8 and in no acute distress. Cardiovascular: Regular rate and rhythm with a normal S1 and S2. No gallops, murmurs, or rubs. Normal PMI, no JVD. No pulse deficits. Respiratory: Lungs have equal breath sounds bilaterally, clear to auscultation and percussion. No rales, rhonchi or wheezes noted. No increased work of breathing, no retractions or nasal flaring. Back: No spinal tenderness. No costovertebral tenderness. Full range of motion. Skin: Warm, dry with normal turgor. Normal color with no rashes, no lesions, and no evidence of cellulitis. MS/ Extremity: Pulses equal, no cyanosis. Neurovascular intact. Full, normal range of motion. Neuro: Awake and alert, GCS 15, oriented to person, place, time, and situation. Cranial nerves II-XII grossly intact. Motor strength 5/5 in all extremities. Sensory grossly intact. 22:37 Abdomen/GI: Inspection: abdomen appears normal, Colostomy bag present with stool noted. No abnormality around ostomy site noted. Stool normal color., Bowel sounds: diminished, in all quadrants, Palpation: soft, in all quadrants, mild abdominal tenderness, in the right lower quadrant and left lower quadrant, mass, is not appreciated, rebound tenderness, is not appreciated, voluntary guarding, is not appreciated, involuntary guarding, is not appreciated, no appreciated organomegaly, Indicators: McBurney's point is not tender, Rene's sign is negative, Rovsing's sign is negative, Liver: tenderness, is not appreciated. Vital Signs: 22:31 BP 141 / 84; Pulse 61; Resp 20; Temp 98.1(O); Pulse Ox 100% on R/A; Weight 56.7 kg (R); jb4 Height 5 ft. 11 in. (180.34 cm) (R); Pain 4/10; 23:00 BP 182 / 82; Pulse 58; Resp 18; Pulse Ox 100% on R/A; jb4 12/21 00:00 BP 133 / 72; Pulse 77; Resp 21; Pulse Ox 93% on R/A; jb4 01:30 BP 136 / 74; Pulse 85; Resp 24; Pulse Ox 94% on R/A; jb4 02:30 BP 132 / 75; Pulse 85; Resp 22; Pulse Ox 94% on R/A; jb4 03:30 BP 106 / 78; Pulse 78; Resp 27; Pulse Ox 94% on R/A; [facility] 12/20 22:31 Body Mass Index 17.43 (56.70 kg, 180.34 cm) [facility] MDM: 12/20 22:32 Patient medically screened. [facility] 23:53 Data reviewed: vital signs, nurses notes, lab test result(s), radiologic studies, CT [facility] scan. Data interpreted: Pulse oximetry: on room air is 100 %. Interpretation: normal. Counseling: I had a detailed discussion with the patient and/or guardian regarding: the historical points, exam findings, and any diagnostic results supporting the discharge/admit diagnosis, lab results, radiology results, the need for further work-up and treatment in the hospital. 12/20 22:32 Order name: Basic Metabolic Panel [facility] 12/20 22:32 Order name: CBC with Diff [facility] 12/20 22:32 Order name: Hepatic Function [facility] 12/20 22:32 Order name: Lipase [facility] 12/20 22:32 Order name: Basic Metabolic Panel; Complete Time: 23:05 [facility] 12/20 22:32 Order name: CBC with Automated Diff; Complete Time: 23:05 [facility] 12/20 22:32 Order name: CT Abd/Pelvis - IV Contrast Only [facility] 12/20 22:32 Order name: Liver (Hepatic) Function; Complete Time: 23:05 [facility] 12/20 22:32 Order name: Lipase; Complete Time: 23:05 [facility] 12/21 01:03 Order name: COVID-19 : Document "Date of Symptom Onset" if Symptomatic. 12/21 02:48 Order name: SARS-COV-2 RT PCR; Complete Time: 04:29 [facility] 12/20 22:32 Order name: IV Saline Lock; Complete Time: 22:37 [facility] 12/20 22:32 Order name: Labs collected and sent; Complete Time: 22:37 [facility] 12/20 23:27 Order name: NG Tube; Complete Time: 23:27 [facility] Administered Medications: 22:52 Drug: Promethazine 12.5 mg Route: IVP; Site: right upper arm; jb4 23:30 Follow up: Response: No adverse reaction 4 22:52 Drug: NS 0.9% 1000 ml Route: IV; Rate: 125 ml/hr; Site: right upper arm; jb4 12/21 04:11 Follow up: Response: No adverse reaction; IV Status: Infusion continued upon admission jb4 12/20 23:30 Drug: Phenergan (promethazine) 12.5 mg Route: IVP; Site: right antecubital; jb4 12/21 00:00 Follow up: Response: No adverse reaction jb4 00:01 Drug: morphine 4 mg Route: IVP; Site: right antecubital; jb4 00:30 Follow up: Response: No adverse reaction; Marked relief of symptoms; RASS: Alert and jb4 Calm (0) 00:23 Drug: Cipro (ciprofloxacin) 400 mg Volume: 200 ml; Route: IVPB; Infused Over: 60 mins; jb4 Site: right antecubital; 01:23 Follow up: Response: No adverse reaction; IV Status: Completed infusion; IV Intake: jb4 200ml 00:23 Drug: Flagyl (metroNIDAZOLE) 500 mg Volume: 100 ml; Route: IVPB; Rate: 200 ml/hr; jb4 Infused Over: 30 mins; Site: right antecubital; 00:53 Follow up: Response: No adverse reaction; IV Status: Completed infusion; IV Intake: jb4 100ml 00:50 Drug: ProTONIX (pantoprazole) 40 mg Route: IVP; Site: right antecubital; jb4 01:30 Follow up: Response: No adverse reaction; Marked relief of symptoms [facility] Disposition: 04:22 Co-signature as Attending Physician, Fred Morales MD. [email or web address] Disposition Summary: 12/21/20 00:33 Hospitalization Ordered Hospitalization Status: Inpatient Admission jr8 Provider: Hamilton Naranjo Location: Telemetry/MedSur (Inpatient) [facility] Condition: Stable jr8 Problem: new jr8 Symptoms: have improved jr8 Bed/Room Type: Standard [facility] Room Assignment: 404(12/21/20 03:21) tl1 Diagnosis - Small Bowel Obstruction jr8 Forms: - Medication Reconciliation Form jr8 - SBAR form jr8 Signatures: Dispatcher [employer] EDFred Hay MD MD pkGeo Henry PA PA jr8 Elisa Stauffer RN RN tl1 Hima Terrazas RN RN jb4 Corrections: (The following items were deleted from the chart) 03:21 00:33 jr8 tl1
--- NOTE | 2020-12-21 00:34 | ER ---
Nurse's Notes [facility] Name: Rolando De León Age: 65 yrs Sex: Male : 1955 Arrival Date: 12/20/2020 Time: 22:31 Bed 4 Private MD: Diagnosis: Small Bowel Obstruction Presentation: 12/20 22:31 Chief complaint: EMS states: We were called for a pt experiencing intense abdominal jb4 pain that comes and goes. The pt described it as a stabbing pain that is 9/10 when it hits. He reports having a history of colon cancer and bowel obstruction. Has vomited once. Coronavirus screen: At this time, the client does not indicate any symptoms associated with coronavirus-19. Ebola Screen: No symptoms or risks identified at this time. Initial Sepsis Screen: Does the patient meet any 2 criteria? Yes Does the patient have a suspected source of infection? Yes: Acute abdominal pain. Risk Assessment: Do you want to hurt yourself or someone else? Patient reports no desire to harm self or others. Onset of symptoms was December 20, 2020. Transition of care: patient was not received from another setting of care. 22:31 Method Of Arrival: EMS: [facility] jb4 22:31 Acuity: SOLANGE 3 jb4 Historical: - Allergies: 22:34 No Known Allergies; jb4 - Home Meds: 22:34 methimazole 10 mg Oral tab 1 tab once daily [Active]; jb4 - PMHx: 22:34 a-fib; bowel obstruction; Cancer; Thyroid problem; jb4 - PSHx: 22:34 Colostomy; eye sx; jb4 - Immunization history:: Adult Immunizations up to date. Screenin:35 Abuse screen: Denies threats or abuse. Nutritional screening: No deficits noted. jb4 Tuberculosis screening: No symptoms or risk factors identified. Fall Risk None identified. Assessment: 22:35 General: Appears in no apparent distress. uncomfortable, Behavior is calm, cooperative, jb4 appropriate for age. Pain: Complains of pain in abdomen Pain does not radiate. Pain currently is 4 out of 10 on a pain scale. at worst was 10 out of 10 on a pain scale. Quality of pain is described as stabbing. Neuro: Level of Consciousness is awake, alert, obeys commands, Oriented to person, place, time, situation. Cardiovascular: Patient's skin is warm and dry. Respiratory: Airway is patent Respiratory effort is even, unlabored, Respiratory pattern is regular, symmetrical. GI: Abdomen is flat, non-distended, Reports lower abdominal pain, nausea, vomiting. : No signs and/or symptoms were reported regarding the genitourinary system. EENT: No signs and/or symptoms were reported regarding the EENT system. Derm: Skin is intact, Skin is pink, warm \\T\\ dry. Musculoskeletal: Circulation, motion, and sensation intact. Range of motion: intact in all extremities. 23:26 Reassessment: Patient appears in no apparent distress at this time. Patient and/or jb4 family updated on plan of care and expected duration. Pain level reassessed. Patient is alert, oriented x 3, equal unlabored respirations, skin warm/dry/pink. Received verbal order to place NG tube. 12/21 00:20 Reassessment: Patient appears in no apparent distress at this time. Patient and/or jb4 family updated on plan of care and expected duration. Pain level reassessed. Patient is alert, oriented x 3, equal unlabored respirations, skin warm/dry/pink. Patient states feeling better. 00:25 Reassessment: Amorita tinged drainage noted from the NG tube. Provider notified. See LIU bonilla for orders. 00:50 Reassessment: Patient appears in no apparent distress at this time. Patient and/or jb4 family updated on plan of care and expected duration. Pain level reassessed. Patient is alert, oriented x 3, equal unlabored respirations, skin warm/dry/pink. Ng tube advanced approximately 8cm per providers instruction. 02:00 Reassessment: Patient appears in no apparent distress at this time. Patient and/or jb4 family updated on plan of care and expected duration. Pain level reassessed. Patient is alert, oriented x 3, equal unlabored respirations, skin warm/dry/pink. 03:00 Reassessment: Patient appears in no apparent distress at this time. Patient and/or jb4 family updated on plan of care and expected duration. Pain level reassessed. Patient is alert, oriented x 3, equal unlabored respirations, skin warm/dry/pink. 03:30 Reassessment: Patient appears in no apparent distress at this time. Patient and/or jb4 family updated on plan of care and expected duration. Pain level reassessed. Patient is alert, oriented x 3, equal unlabored respirations, skin warm/dry/pink. Vital Signs: 12/20 22:31 BP 141 / 84; Pulse 61; Resp 20; Temp 98.1(O); Pulse Ox 100% on R/A; Weight 56.7 kg (R); jb4 Height 5 ft. 11 in. (180.34 cm) (R); Pain 4/10; 23:00 BP 182 / 82; Pulse 58; Resp 18; Pulse Ox 100% on R/A; jb4 12/21 00:00 BP 133 / 72; Pulse 77; Resp 21; Pulse Ox 93% on R/A; jb4 01:30 BP 136 / 74; Pulse 85; Resp 24; Pulse Ox 94% on R/A; jb4 02:30 BP 132 / 75; Pulse 85; Resp 22; Pulse Ox 94% on R/A; jb4 03:30 BP 106 / 78; Pulse 78; Resp 27; Pulse Ox 94% on R/A; jb4 12/20 22:31 Body Mass Index 17.43 (56.70 kg, 180.34 cm) jb4 ED Course: 12/20 22:31 Patient arrived in ED. jb4 22:32 Geo Rey PA is PHCP. jr8 22:32 Fred Morales MD is Attending Physician. jr8 22:32 Inserted saline lock: 18 gauge in right upper arm, using aseptic technique. Blood jb5 collected. 22:34 Triage completed. jb4 22:34 Arm band placed on right wrist. jb4 22:35 Patient has correct armband on for positive identification. Bed in low position. Call jb4 light in reach. Side rails up X 1. Pulse ox on. NIBP on. 22:36 Liver (Hepatic) Function Sent. jb5 22:37 Lipase Sent. jb5 22:37 Basic Metabolic Panel Sent. jb5 22:37 CBC with Automated Diff Sent. jb5 22:37 Basic Metabolic Panel Sent. jb5 22:37 CBC with Diff Sent. jb5 22:37 Hepatic Function Sent. jb5 22:37 Lipase Sent. jb5 22:52 Hima Terrazas, JULIANNE is Primary Nurse. jb4 23:26 NGT: inserted 16 Fr. via right nare. verified placement of air over stomach, verified jb4 return of gastric contents, to intermittent suction. Returned bile. 23:49 CT Abd/Pelvis - IV Contrast Only In Process Unspecified. EDMS 12/21 00:32 Hamilton Naranjo MD is Hospitalizing Provider. jr8 01:15 COVID-19 : Document "Date of Symptom Onset" if Symptomatic. Sent. jb5 03:30 No provider procedures requiring assistance completed. Patient admitted, IV remains in jb4 place. Administered Medications: 12/20 22:52 Drug: Promethazine 12.5 mg Route: IVP; Site: right upper arm; jb4 23:30 Follow up: Response: No adverse reaction jb4 22:52 Drug: NS 0.9% 1000 ml Route: IV; Rate: 125 ml/hr; Site: right upper arm; jb4 12/21 04:11 Follow up: Response: No adverse reaction; IV Status: Infusion continued upon admission jb4 12/20 23:30 Drug: Phenergan (promethazine) 12.5 mg Route: IVP; Site: right antecubital; jb4 12/21 00:00 Follow up: Response: No adverse reaction jb4 00:01 Drug: morphine 4 mg Route: IVP; Site: right antecubital; jb4 00:30 Follow up: Response: No adverse reaction; Marked relief of symptoms; RASS: Alert and jb4 Calm (0) 00:23 Drug: Cipro (ciprofloxacin) 400 mg Volume: 200 ml; Route: IVPB; Infused Over: 60 mins; jb4 Site: right antecubital; 01:23 Follow up: Response: No adverse reaction; IV Status: Completed infusion; IV Intake: jb4 200ml 00:23 Drug: Flagyl (metroNIDAZOLE) 500 mg Volume: 100 ml; Route: IVPB; Rate: 200 ml/hr; jb4 Infused Over: 30 mins; Site: right antecubital; 00:53 Follow up: Response: No adverse reaction; IV Status: Completed infusion; IV Intake: jb4 100ml 00:50 Drug: ProTONIX (pantoprazole) 40 mg Route: IVP; Site: right antecubital; jb4 01:30 Follow up: Response: No adverse reaction; Marked relief of symptoms jb4 Intake: 00:53 IV: 100ml; Total: 100ml. jb4 01:23 IV: 200ml; Total: 300ml. jb4 Outcome: 00:33 Decision to Hospitalize by Provider. jr8 03:30 Admitted to Tele accompanied by nurse, via stretcher, room 404, with chart. jb4 03:30 Condition: stable 03:30 Discharge instructions given to patient, Instructed on the need for admit, Demonstrated understanding of instructions. 03:45 Patient left the ED. ea Signatures: Dispatcher [employer] EDMS Geo Rey PA PA jr8 Hima Terrazas RN RN jb4 Leeanne Clements jb5 Graciela Chery RN RN ea Gamba, Liam, RN wg Corrections: (The following items were deleted from the chart) 02:45 02:00 Reassessment: Patient appears in no apparent distress at this time. Patient wg and/or family updated on plan of care and expected duration. Pain level reassessed. Patient is alert, oriented x 3, equal unlabored respirations, skin warm/dry/pink. wg 02:52 01:30 BP 136 / 74; Pulse 85bpm; Resp 24bpm; Pulse Ox 94% RA; wg jb4 02:52 02:30 BP 132 / 75; Pulse 85bpm; Resp 22bpm; Pulse Ox 94% RA; wg jb4 04:09 04:00 Reassessment: Patient appears in no apparent distress at this time. Patient jb4 and/or family updated on plan of care and expected duration. Pain level reassessed. Patient is alert, oriented x 3, equal unlabored respirations, skin warm/dry/pink. jb4
[2020-12-21] MEDS ORDERED: PANTOPRAZOLE 40 MG INJ ONE (01:00)
--- NOTE | 2020-12-21 01:12 | P.HP ---
Certification for Inpatient Patient admitted to: Inpatient With expected LOS: >2 Midnights Patient will require the following post-hospital care: None Practitioner: I am a practitioner with admitting privileges, knowledge of patient current condition, hospital course, and medical plan of care. Services: Services provided to patient in accordance with Admission requirements found in Title 42 Section 412.3 of the Code of Federal Regulations Patient History Date of Service: 12/21/20 Reason for admission: Small bowel obstruction History of Present Illness: 65-year-old male with history of colon cancer status post ostomy and multiple bowel obstructions presented to the emergency room and for nausea, vomiting. Patient was evaluated in the emergency department labs were significant for white blood cell count 10.4 CO2 36 GFR 76 glucose [address] scan demonstrates small bowel obstruction. Patient with active vomiting, NG tube was inserted and general surgery was consulted while patient was in the emergency department recommendation for admission, NGT to low wall suction, IV antibiotics and IV fluids. Allergies No Known Allergies Allergy (Verified 06/16/20 00:25) Home Medications: Ciprofloxacin HCl [Cipro 500 MG Tablet] 500 mg PO BID 7 Days #14 tab 11/12/20 dexAMETHasone [Decadron] 4 mg PO DAILY 7 Days #7 tab 11/12/20 metroNIDAZOLE [Flagyl] 500 mg PO Q8H 7 Days #21 tablet 11/12/20 - Past Medical/Surgical History Diabetic: No -: thyroid disease -: colon cancer -: Small-bowel obstruction x8 -: A. 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 - Family History Father -: Heart disease Sister -: Heart disease Brother -: Heart disease, Hypertension - Social History Smoking Status: Former smoker Alcohol use: No CD- Drugs: Yes Caffeine use: Yes Place of Residence: Home Review of Systems 10-point ROS is otherwise unremarkable Gastrointestinal: Nausea, Vomiting, Abdominal Pain Physical Examination - Physical Exam General: Alert, In no apparent distress, Oriented x3 HEENT: Atraumatic, PERRLA, Mucous membr. moist/pink, EOMI, Sclerae nonicteric Neck: Supple, 2+ carotid pulse no bruit, No LAD, Without JVD or thyroid abnormality Respiratory: Clear to auscultation bilaterally, Normal air movement Cardiovascular: Regular rate/rhythm, Normal S1 S2 Gastrointestinal: Hypoactive, Tenderness (Mild generalized abdominal tenderness, colostomy in place, intact) Musculoskeletal: No tenderness Integumentary: No rashes Neurological: Normal speech, Normal strength at 5/5 x4 extr, Normal tone, Normal affect - Studies Laboratory Data (last 24 hrs) 12/20/20 22:28: WBC 10.40, Hgb 17.2, Hct 50.9 H, Plt Count 239 12/20/20 22:28: Sodium 141, Potassium 4.2, BUN 17, Creatinine 0.99, Glucose 146 H, Total Bilirubin 0.7, AST 14 L, ALT 24, Alkaline Phosphatase 74, Lipase 67 L Assessment and Plan - Plan Assessment: Small obstruction with history of colon cancer status post ostomy with history of multiple bowel obstructions A. fib not on chronic anticoagulation therapy Plan: Small obstruction with history of colon cancer status post ostomy with history of multiple bowel obstructions: N.p.o., NGT to low to mid wall suction, IV fluids, IV antibiotics, as needed pain medications. General surgery consult in place and made aware. Appreciate further input from general surgery. A. fib not on chronic anticoagulation therapy: Monitor on telemetry, rate controlled at this time. Continue medications when appropriate DVT PPX: SCD Code status: Full code Discharge Plan: Home Plan to discharge in: Greater than 2 days - Advance Directives Does patient have a Living Will: No Does patient have a Durable POA for Healthcare: No - Code Status/Comfort Care Code Status Assessed: Yes (Full code) Critical Care: No Time Spent Managing Pts Care (In Minutes): 55
[2020-12-21] MEDS ORDERED: ONDANSETRON 4 MG/2 ML VIAL IV PRN (02:24)
[2020-12-21 04:20] VITALS: BMI 17.4
[2020-12-21] MEDS: NA CHLORIDE 0.9% 1,000 ML IV SCH ×3 (04:32→21:38)
[2020-12-21] MEDS ORDERED: PNEUMOCOCCAL VACCINE 0.5 ML IMVAC ONE (08:00)
[2020-12-21] MEDS: METRONIDAZOLE 500mg IVPB 500 MG/100 ML BAG IV SCH ×3 (08:40→17:00)
--- NOTE | 2020-12-21 09:35 | RAD REPORT ---
EXAM DESCRIPTION: RAD - Abdomen 1 View (KUB) - 12/21/2020 9:17 am CLINICAL HISTORY: SBO COMPARISON: Abdomen 1 View (KUB) dated 11/10/2020; Abdomen 1 View (KUB) dated 08/25/2020; Abdomen 1 Vie w (KUB) dated 08/21/2020; Abdomen Pelvis W Contrast dated 12/20/2020 FINDINGS: Diffusely dilated small bowel within the central abdomen. NG tube tip overlying the gastri c body. This is in satisfactory position. No acute osseous abnormality.Visualized lungs are unremarka ble.No abnormal calcifications. Surgical changes at L5. Contrast is seen within the bladder. IMPRESSION: Small bowel dilatation is similar to the CT from 12/20/2020 . NG tube in satisfactory po sition overlying the stomach.
[2020-12-21 10:29] LABS: Absolute Lymphocytes (CBC) 0.2 K/uL (0.7-4.9); Basophils % 0.2 % (0-1.3); Hematocrit 46.6 % (39.6-49.0); Lymphocytes % 1.3 % (15.3-44.8); RBC Red Blood Cell Count 5.13 M/uL (4.33-5.43)
[2020-12-21 10:55] LABS: Blood Morphology Comment NOT SEEN (NOT SEEN); Platelet Estimate ADEQ
[2020-12-21 11:21] LABS: Albumin 3.3 g/dL (3.4-5.0); Bilirubin Total 0.7 mg/dL (0.2-1.0); Magnesium 1.8 mg/dL (1.8-2.4); Potassium 4.4 mmol/L (3.5-5.1); Protein, Total 6.4 g/dL (6.4-8.2)
--- NOTE | 2020-12-21 11:33 | RAD REPORT ---
EXAM DESCRIPTION: CT - Abdomen Pelvis W Contrast - 12/21/2020 6:27 am CLINICAL HISTORY: 65 years Male ABD PAIN COMPARISON: 11/10/2020. TECHNIQUE: Contiguous axial images obtained through the abdomen and pelvis following IV contrast. Re formatted images obtained. This exam was performed according to our department optimization program which includes automated exp osure control, adjustment of the mA and/or kv according to patient size and/or use of iterative recon struction technique. FINDINGS: Mild scarring/atelectasis in the lower lungs. There are somewhat ill-defined nodular opaci ties in the left lower lung which appears slightly improved compared to the prior study. These lesion s are likely from an infectious/inflammatory etiology but continued follow-up is recommended to exclu de the possibility of a neoplastic etiology. The NG tube tip is just within the stomach and the proximal sidehole is in the esophagus. The tube sh ould be advanced approximately 8 cm for better positioning. Coronary artery calcifications. The liver appears unremarkable. The spleen and pancreas appear unremarkable. No adrenal masses. The right kidney is slightly atrophic with areas of renal cortical scarring. There are also areas of renal cortical scarring involving the left kidney. The renal collecting systems are minimally promine nt similar compared to the prior study. The gallbladder is visualized. Atherosclerotic calcifications. No aneurysmal dilatation of the aorta. There are postsurgical changes in the region of the rectosigmoid junction likely from left hemicolect marbella. There is similar stranding in the fat planes around the rectosigmoid junction. There are also po stsurgical changes in the region of the distal small bowel. The ascending and transverse colon are sl ightly distended with stool with an ostomy defect in the left lower abdomen. There are multiple dilat ed loops of small bowel consistent with small bowel obstruction. The transition zone is not clearly d elineated. The appendix appears unremarkable. No significant free pelvic fluid. Degenerative changes in the spine. IMPRESSION: Somewhat ill-defined nodular opacities in the left lower lung which appear slightly impr michael compared to the prior study. The lesions are likely from an infectious/inflammatory etiology but continued follow-up is recommended to exclude the possibility of a neoplastic etiology. Small bowel obstruction. The NG tube tip is just within the stomach. The tube should be advanced approximately 8 cm for better positioning. There are postsurgical changes around the rectosigmoid junction with left hemicolectomy. There is an ostomy defect in the left lower abdomen. There is soft tissue thickening around the distal sigmoid colon and rectum likely from scarring. Recu rrent tumor not totally excluded and continued follow-up or correlation with CT PET is recommended. Other findings as above. Electronically signed by: Khadar Huitron MD 12/21/2020 12:23 AM CDT Due to temporary technical issues with the PACS/Fluency reporting system, reports are being signed by the in house radiologist without review as a courtesy to ensure prompt reporting. The interpreting r adiologist is fully responsible for the content of the report.
[2020-12-21] MEDS: CIPROFLOXACIN 400mg IV 400 MG/200 ML BAG IV SCH ×2 (11:37→23:57)
[2020-12-21 14:38] LABS: Urine Appearance CLEAR (Clear); Urine Bilirubin NEGATIVE (Negative); Urine Blood NEGATIVE (Negative); Urine Color DK YELLOW (Yellow); Urine Glucose TRACE (Negative); Urine Protein NEGATIVE (Negative); Urine Specific Gravity >=1.030 (1.005-1.030); Urine Urobilinogen 0.2 mg/dL (0.2-1.0)
[2020-12-21 14:41] LABS: Urine Microscopic Reflex NO UMIC
--- NOTE | 2020-12-21 17:08 | CON ---
Date of Consultation: 12/21/2020 Reason For Service: Small bowel obstruction. History Of Present Illness: Mr. De León is a 65-year-old patient with extensive surgical history. He has history of colon cancer, bowel resection, also colostomy, ileostomy with reversal with now frequ ent bowel obstruction. He was seen here in October of this year. Dr. Zuleta saw the patient and diagn osed with bowel obstruction, but he was able to treat this conservatively. He has been given specifi c diet. Yesterday, he felt once again the abdominal distention and came here for followup and found to have small bowel obstruction. Allergies: NONE. Medications: Methimazole. Past Medical History: Atrial fibrillation, bowel obstruction, colon cancer, thyroid problems. Past Surgical History: Once again, bowel resection, apparently colostomy and ileostomy with reversal . Functional Status: Apparently, he is incarcerated. Review of Systems: See H and P, otherwise unremarkable. He does not remember the last colonoscopy. Physical Examination: General: The patient is awake, alert. Chest: Clear. Abdomen: Soft and depressible. Softly distended. Ostomy looks viable. There are stools in the ost marbella today, although I do not see any gas. This was changed recently, so it is hard to say at this mo ment. No peritonitis present. Abdomen is flat. Rectal: Deferred. Extremities: Good capillary refill. Laboratory Data: Blood work shows WBC count of 14.2 with hemoglobin of 15.5, potassium 4.4 with crea tinine 0.97. CAT scan of the abdomen and pelvis interpreted by Dr. Mcmanus as small bowel obstruction. Assessment And Plan: This is a 65-year-old patient with small bowel obstruction, recurrent. We will keep the patient on bowel rest and nasogastric tube. He was advised in the past to follow up with h is oncologist due to history of colon cancer, although he has not been able to do so. He was encoura ged to have the ambulation and then we will proceed accordingly depends how clinically he progressed. HOLLY/LUÍS Voice ID: [id number] Report ID: [id number]
[2020-12-21] MEDS: MORPHINE 2 MG/ML SYR IV PRN (22:06)
[2020-12-22] MEDS: METRONIDAZOLE 500mg IVPB 500 MG/100 ML BAG IV SCH ×3 (01:18→17:00)
--- NOTE | 2020-12-22 06:19 | P.PN ---
Date of Service: 12/22/20
[2020-12-22 06:22] LABS: Basophils % 0.4 % (0-1.3); Hematocrit 42.1 % (39.6-49.0); Lymphocytes % 8.9 % (15.3-44.8); MPV 8.1 fL (7.6-11.3); RBC Red Blood Cell Count 4.62 M/uL (4.33-5.43)
[2020-12-22 06:39] LABS: Albumin 2.9 g/dL (3.4-5.0); Bilirubin Total 0.5 mg/dL (0.2-1.0); Magnesium 1.9 mg/dL (1.8-2.4); Potassium 4.1 mmol/L (3.5-5.1); Protein, Total 5.8 g/dL (6.4-8.2)
--- NOTE | 2020-12-22 07:19 | RAD REPORT ---
EXAM DESCRIPTION: RAD - Abdomen 1 View (KUB) - 12/22/2020 6:41 am CLINICAL HISTORY: eval sbo COMPARISON: Abdomen 1 View (KUB) dated 12/21/2020; Abdomen 1 View (KUB) dated 11/10/2020; Abdomen 1 Vi ew (KUB) dated 08/25/2020; Abdomen 1 View (KUB) dated 08/21/2020 FINDINGS: Enteric tube overlies the mid esophagus and should be advanced. Gaseous small bowel dilata tion has improved. Contrast seen within the bladder. Surgical clips at L5. IMPRESSION: NG tube has been retracted into the mid esophagus. Decreased gaseous distention of the s mall bowel suggesting resolving small bowel obstruction.
[2020-12-22] MEDS: NA CHLORIDE 0.9% 1,000 ML IV SCH ×2 (08:24→22:53)
--- NOTE | 2020-12-22 11:04 | P.PN ---
Subjective Date of Service: 12/22/20 Chief Complaint: Small bowel obstruction Subjective: Improving, NPO Patient appears to be resting comfortably. He notes a recent history of a headache in the temporal region bilaterally. Those symptoms have since cleared. The surgeon was in yesterday to evaluate him for a small bowel obstruction. The NG tube was removed and the patient remains n.p.o. for the time. His ostomy bag has stool and gas. The patient has active bowel sounds and no abdominal pain or tenderness. It was noted that his urine was dark nayana likely related to his low fluid intake. That likely explains the slight uptick in his creatinine. <Bay Herring - Last Filed: 12/22/20 17:03> Date of Service: 12/22/20 <Hamilton Naranjo - Last Filed: 12/22/20 17:33> Review of Systems 10-point ROS is otherwise unremarkable General: Other (recent headache), Unremarkable Eyes: Pain (Light bothers eyes.) ENT: Unremarkable Respiratory: Cough, SOB with Excertion Cardiovascular: Unremarkable Gastrointestinal: Other (denies abdominal pain or problems with ostomy) Genitourinary: Unremarkable Musculoskeletal: Unremarkable Integumentary: Unremarkable Neurological: Unremarkable Lymphatics: Unremarkable <Bay Herring - Last Filed: 12/22/20 17:03> Physical Examination - Vital Signs Temperature: 96.9 F Blood Pressure: 115/57 Pulse: 55 Respirations: 18 Pulse Ox (%): 92 - Physical Exam General: Alert, In no apparent distress, Oriented x3, Cooperative HEENT: Atraumatic, Normocephalic, PERRLA Neck: Supple, JVD not distended Respiratory: Clear to auscultation bilaterally, Diminished Cardiovascular: Normal pulses, Regular rate/rhythm, Normal S1 S2 Capillary refill: Brisk Gastrointestinal: Normal bowel sounds, No tenderness, No guarding Musculoskeletal: No clubbing, No swelling, No contractures, No erythema Integumentary: No rashes, No breakdown, No significant lesion Neurological: Normal speech, Normal strength at 5/5 x4 extr, Normal tone, Sensation intact External genitalia: Deferred Other Physical/Emotional Findings: Ostomy left lower abdomen. Stool present in bag as well as some gas. <Bay Herring - Last Filed: 12/22/20 17:03> Assessment & Plan - Problems (Diagnosis) (1) Atrial fibrillation Current Visit: Yes Status: Acute (2) Atrial fibrillation, persistent Current Visit: Yes Status: Chronic Plan: As appropriate resume medications (3) Small bowel obstruction Onset Date: ~12/21/20 Current Visit: No Status: Acute Plan: Patient's NG tube has been removed on advice of Surgeon. Pt remains NPO. Pt is being observed to see if he has return of bowel function. Anticipate trial of liquid diet. (4) COVID-19 Onset Date: ~12/21/20 Current Visit: Yes Status: Acute Plan: Pt asymptomatic and with good O2 sat on RA. Monitor while on floor and if pt continues to do well DC to home. Plan to discharge in: 72 Hours - Code Status/Comfort Care Code Status Assessed: Yes Code Status: Full Code Critical Care: No Time Spent Managing Pts Care (In Minutes): 70 <Bay Herring - Last Filed: 12/22/20 17:03> Physician Review Additional Text: Agree with plan of care as noted above. KUB improved, patient feeling better, states he is hungry and thirsty Patient is high risk, continue n.p.o. and IV fluids for now We will discussed with general surgery, possibly advanced to ice chips/sips are clear liquids later today. <Hamilton Naranjo - Last Filed: 12/22/20 17:33>
[2020-12-22] MEDS: CIPROFLOXACIN 400mg IV 400 MG/200 ML BAG IV SCH ×2 (11:39→23:17)
--- NOTE | 2020-12-22 15:12 | PN ---
Date of Progress Note: 12/22/2020 Diagnosis: Small bowel obstruction. Subjective: The patient is doing better. No nausea, vomiting. He is hungry. Ostomy is passing fla tus and passing bowel movement. Physical Examination: Abdomen: Benign with once again ostomy viable. Extremity: Good capillary refill. Laboratory Data: X-ray today showing KUB some improvement. Plan: He wants to try diet. So we are going to give him just a liquid diet. Once again, understand ing that if he gets nauseous or vomiting, to be n.p.o. once again and once again consider surgical op tions. He wants to continue conservative treatment. We will see how he does with a diet today. Amb ulation is important. Once again, discussed diet to diminish the chance of recurrence. HOLLY/LUÍS Voice ID: [id number] Report ID: [id number]
[2020-12-22] MEDS: MORPHINE 2 MG/ML SYR IV PRN (23:16)
[2020-12-23] MEDS: METRONIDAZOLE 500mg IVPB 500 MG/100 ML BAG IV SCH ×3 (00:53→17:00)
[2020-12-23 06:02] LABS: Absolute Lymphocytes (CBC) 1.3 K/uL (0.7-4.9); Basophils % 0.6 % (0-1.3); Hematocrit 37.5 % (39.6-49.0); Lymphocytes % 18.8 % (15.3-44.8); RBC Red Blood Cell Count 4.13 M/uL (4.33-5.43)
[2020-12-23 06:21] LABS: ALT/SGPT 14 U/L (12-78); AST/SGOT 7 U/L (15-37); Albumin 2.4 g/dL (3.4-5.0); Alkaline Phosphatase 41 U/L (45-117); BUN Blood Urea Nitrogen 15 mg/dL (7-18); Bicarbonate 32 mmol/L (21-32); Bilirubin Total 0.4 mg/dL (0.2-1.0); Glucose Level 89 mg/dL (74-106); Magnesium 1.7 mg/dL (1.8-2.4); Sodium Level 144 mmol/L (136-145)
--- NOTE | 2020-12-23 07:27 | RAD REPORT ---
EXAM DESCRIPTION: RAD - Abdomen 1 View (KUB) - 12/23/2020 7:08 am CLINICAL HISTORY: SBO f/u COMPARISON: Abdomen 1 View (KUB) dated 12/22/2020; Abdomen 1 View (KUB) dated 12/21/2020; Abdomen 1 Vi ew (KUB) dated 11/10/2020; Abdomen 1 View (KUB) dated 08/25/2020; Abdomen Pelvis W Contrast dated 12/20 FINDINGS: Mildly dilated small bowel centrally. Fairly diffuse gaseous distension of the colon. No a cute osseous abnormality.Visualized lungs are unremarkable.No abnormal calcifications. IMPRESSION: Mild small bowel and colonic distention/dilatation which may represent an ileus. No defi nite bowel obstruction.
[2020-12-23 08:49] VITALS: TEMP 97.9
[2020-12-23 09:51] VITALS: O2SAT 96
[2020-12-23] MEDS: NA CHLORIDE 0.9% 1,000 ML IV SCH ×2 (10:00→14:24)
[2020-12-23] MEDS: CIPROFLOXACIN 400mg IV 400 MG/200 ML BAG IV SCH (12:20)
[2020-12-23 12:46] VITALS: BP 147/76
--- NOTE | 2020-12-23 17:14 | P.DS ---
Admission Date: 12/21/20 Discharge Date: 12/23/20 Disposition: ROUTINE DISCHARGE Discharge Condition: GOOD Reason for Admission: Small bowel obstruction Consultations: General surgeryDrFran Anthony Procedures: CT abdomen/pelvis (12/20): FINDINGS: Mild scarring/atelectasis in the lower lungs. There are somewhat ill- defined nodular opacities in the left lower lung which appears slightly improved compared to the prior study. These lesions are likely from an infectious/inflammatory etiology but continued follow-up is recommended to exclude the possibility of a neoplastic etiology. The NG tube tip is just within the stomach and the proximal sidehole is in the esophagus. The tube should be advanced approximately 8 cm for better positioning. Coronary artery calcifications. The liver appears unremarkable. The spleen and pancreas appear unremarkable. No adrenal masses. The right kidney is slightly atrophic with areas of renal cortical scarring. There are also areas of renal cortical scarring involving the left kidney. The renal collecting systems are minimally prominent similar compared to the prior study. The gallbladder is visualized. Atherosclerotic calcifications. No aneurysmal dilatation of the aorta. There are postsurgical changes in the region of the rectosigmoid junction likely from left hemicolectomy. There is similar stranding in the fat planes around the rectosigmoid junction. There are also postsurgical changes in the region of the distal small bowel. The ascending and transverse colon are slightly distended with stool with an ostomy defect in the left lower abdomen. There are multiple dilated loops of small bowel consistent with small bowel obstruction. The transition zone is not clearly delineated. The appendix appears unremarkable. No significant free pelvic fluid. Degenerative changes in the spine. IMPRESSION: Somewhat ill-defined nodular opacities in the left lower lung which appear slightly improved compared to the prior study. The lesions are likely from an infectious/inflammatory etiology but continued follow-up is recommended to exclude the possibility of a neoplastic etiology. Small bowel obstruction. The NG tube tip is just within the stomach. The tube should be advanced approximately 8 cm for better positioning. There are postsurgical changes around the rectosigmoid junction with left hemicolectomy. There is an ostomy defect in the left lower abdomen. There is soft tissue thickening around the distal sigmoid colon and rectum likely from scarring. Recurrent tumor not totally excluded and continued KUB x-ray (12/21): FINDINGS: Diffusely dilated small bowel within the central abdomen. NG tube tip overlying the gastric body. This is in satisfactory position. No acute osseous abnormality.Visualized lungs are unremarkable.No abnormal calcifications. Surgical changes at L5. Contrast is seen within the bladder. IMPRESSION: Small bowel dilatation is similar to the CT from 12/20/2020 . NG tube in satisfactory position overlying the stomach. KUB x-ray (12/22): FINDINGS: Enteric tube overlies the mid esophagus and should be advanced. Gaseous small bowel dilatation has improved. Contrast seen within the bladder. Surgical clips at L5. IMPRESSION: NG tube has been retracted into the mid esophagus. Decreased gaseous distention of the small bowel suggesting resolving small bowel obstruction. KUB x-ray (12/23): FINDINGS: Mildly dilated small bowel centrally. Fairly diffuse gaseous distension of the colon. No acute osseous abnormality.Visualized lungs are unremarkable.No abnormal calcifications. IMPRESSION: Mild small bowel and colonic distention/dilatation which may represent an ileus. No definite bowel obstruction. Problem list Small bowel obstruction, history of multiple small bowel obstructions Atrial fibrillation, chronic History of COVID-19 infection, without current active symptoms History of colorectal cancer s/p colectomy/ostomy with multiple previous bowel obstructions Brief History of Present Illness: 65-year-old male with history of colon cancer status post ostomy and multiple bowel obstructions presented to the emergency room and for nausea, vomiting. Patient was evaluated in the emergency department labs were significant for white blood cell count 10.4 CO2 36 GFR 76 glucose [address] scan demonstrates small bowel obstruction. Patient with active vomiting, NG tube was inserted and general surgery was consulted while patient was in the emergency department recommendation for admission, NGT to low wall suction, IV antibiotics and IV fluids. Hospital Course: Patient was admitted and treated for his bowel obstruction with IV fluids, prophylactic antibiotics, and bowel rest. General surgery, Dr. Anthony, was consulted. Patient had slow improvement and diet was slowly advanced. He had return of his bowel function, and was having stool and gaseous output in his ostomy bag. He was advanced and tolerated GI soft diet on day of discharge. General surgery felt patient was stable and appropriate to be discharged. Patient was discharged back into the custody of the police department. He is to follow-up with his PCP the next week. Vital Signs/Physical Exam: Temp Pulse Resp BP Pulse Ox 97.9 F 56 18 147/76 H 94 12/23/20 12:00 12/23/20 12:00 12/23/20 12:00 12/23/20 12:00 12/23/20 12:00 General: Alert, In no apparent distress, Oriented x3 HEENT: Sclerae nonicteric Respiratory: Clear to auscultation bilaterally, Normal air movement Cardiovascular: No edema, Regular rate/rhythm Gastrointestinal: Soft and benign, Non-distended, No tenderness, Other (ostomy with stool and gas in bag) Musculoskeletal: No tenderness Integumentary: No rashes Neurological: Normal speech, Normal affect Other Physical/Emotional Findings: Ostomy left lower abdomen. Stool present in bag as well as some gas. Laboratory Data at Discharge: WBC 6.80 K/uL (4.3-10.9) D 12/23/20 05:23 Hgb 12.6 g/dL (13.6-17.9) L 12/23/20 05:23 Hct 37.5 % (39.6-49.0) L 12/23/20 05:23 Plt Count 139 K/uL (152-406) L 12/23/20 05:23 Sodium 144 mmol/L (136-145) 12/23/20 05:23 Potassium 4.0 mmol/L (3.5-5.1) 12/23/20 05:23 BUN 15 mg/dL (7-18) 12/23/20 05:23 Creatinine 0.77 mg/dL (0.55-1.3) 12/23/20 05:23 Glucose 89 mg/dL (74-106) 12/23/20 05:23 Magnesium 1.7 mg/dL (1.8-2.4) L 12/23/20 05:23 Total Bilirubin 0.4 mg/dL (0.2-1.0) 12/23/20 05:23 AST 7 U/L (15-37) L 12/23/20 05:23 ALT 14 U/L (12-78) 12/23/20 05:23 Alkaline Phosphatase 41 U/L (45-117) L 12/23/20 05:23 Lipase 67 U/L (73-393) L 12/20/20 22:28 Diet: soft diet Activity: Ad myke Followup: NONE,NONE [Primary Care Provider] - (Call to schedule appointment ) Time spent managing pt's care (in minutes): 45
== END 2020-12-23 19:00 | DRG 389 ==
LOC: ER 22:29 → ERHOLD 12-21 00:51 → 4TH 12-21 03:31
PROVIDERS: ADMIT Hospitalist; ATTEND Hospitalist
DX: K56.609 Unspecified intestinal obstruction, unspecified as to partial versus complete obstruction (principal); I48.20 Chronic atrial fibrillation, unspecified; Z86.16 Personal history of COVID-19; Z85.038 Personal history of other malignant neoplasm of large intestine; Z93.3 Colostomy status; Z23 Encounter for immunization
CPT/HCPCS: 36415; 74018; 74177; 80048; 80053; 80076; 81003; 83690; 83735; 85025; 90471; 90732; 99285; C9113; J0744; J2270; J2550; J7030; Q9967; U0003